=== PATIENT | female | born 1950 | race Caucasian/White ===

== ENCOUNTER → 2019-09-01 | Day surgery (SDC) | payer MEDICARE ==
[~2019-09-01] MED LIST: AMLO10TA8 PO; DOXE10CA PO; IV RINGERS,LACTATED 1000ML 1,000 ML IV SCH; LEVO75TA5 PO; LIDOCAINE 2% PF 5 ML VIAL. ONE; OMEP40CA45 PO; PROPOFOL 20 ML IV ONE
[2019-09-01 12:30] VITALS: BP 111/73
--- NOTE | 2019-09-03 17:06 | PATHOLOGY ---
[facility] Accession Number: [id number] . 01 Material submitted: . PART A: small bowel - SMALL BOWEL BIOPSY PART B: stomach - GASTRIC ANTRUM AND BODY BIOPSY. Modifiers: body PART C: esophagus - DISTAL ESOPHAGUS BIOPSY. Modifiers: distal . 01 Clinical history: . Dysphagia . 02 Diagnosis: A. Small bowel biopsies: - No significant pathologic abnormalities. . B. Gastric biopsies, gastric antrum and gastric body: - Chronic gastritis, mild. . C. Esophageal biopsy, distal esophagus: - Segment of esophagogastric mucosa showing chronic inflammation. . (JPM:hansel; 09/03/2019) S 09/03/2019 0903 Local . 02 Comment: Sections of the small bowel biopsy reveal segments of duodenal mucosa containing several small mucosal-associated lymphoid aggregates. Where best oriented, the mucosal villi show no sprue-like changes or significant inflammatory changes. . Sections of the gastric biopsy reveal segments of gastric antral and gastric body mucosa showing congestion and mild chronic inflammation. A properly controlled immunoperoxidase stain is negative for Helicobacter organisms. . Sections of the distal esophageal biopsy reveal a segment of esophagogastric mucosa showing moderate chronic inflammation. There is no evidence of Jarquin's change, dysplasia, or malignancy. (JPM:hansel; 09/03/2019) . . Special stain performed: Immunoperoxidase stain for Helicobacter on B1 . 02 Electronically signed: . Fabian Melo MD, Pathologist NPI- [id number] . 01 Gross description: . A. The specimen is received in formalin, labeled "Joanne Salas, small bowel biopsy". Received are three segments of pale zuniga soft tissue measuring 0.4 cm each in maximum dimensions. The specimen is submitted entirely in cassette A1. . B. The specimen is received in formalin, labeled "Joanne Salas, gastric antrum and body biopsy". Received are two segments of pale zuniga soft tissue ranging in size from 0.3 to 0.6 cm in maximum dimensions. The specimen is submitted entirely in cassette B1. . C. The specimen is received in formalin, labeled "Joanne Salas, distal esophagus biopsy". Received is a segment of pale zuniga soft tissue measuring 0.5 cm in maximum dimensions. The specimen is submitted entirely in cassette C1. (CAA; 09/02/2019) QAC/QAC 09/02/2019 1212 Local . 02 Pathologist provided ICD-10: K29.50, K20.9 . 02 CPT . 315520, 456896, 880293, [id number] Specimen Comment: A courtesy copy of this report has been sent to [phone], [phone] Specimen Comment: [id number] Specimen Comment: Report sent to ,DR ROSAS / DR MILNER Performed at: 01 [facility] [address], [place], [place] [id number] MD Emiliano Vines MD Phone: [phone] Performed at: 02 [facility] [address], [place] [id number] MD Fabian Melo MD Phone: [phone]
== END ==
LOC: ENDOS 09:54
PROVIDERS: ATTEND Internal Medicine Gastroenterology
DX: R13.10 Dysphagia, unspecified (principal); K22.2 Esophageal obstruction; K21.0 Gastro-esophageal reflux disease with esophagitis; K29.50 Unspecified chronic gastritis without bleeding; K44.9 Diaphragmatic hernia without obstruction or gangrene; I10 Essential (primary) hypertension; K21.9 Gastro-esophageal reflux disease without esophagitis; E03.9 Hypothyroidism, unspecified
CPT/HCPCS: 43239; 43248; 88305; 88342; J2001; J2704

== ENCOUNTER → 2019-12-17 | Outpatient (CLI) | payer MEDICARE ==
[2019-09-01 12:30] VITALS: BP 111/73
[~2019-12-17] MED LIST changes: -IV RINGERS,LACTATED 1000ML 1,000 ML IV SCH; -LIDOCAINE 2% PF 5 ML VIAL. ONE; -PROPOFOL 20 ML IV ONE
== END | disposition home or self-care (01) ==
LOC: LAB 11:14
PROVIDERS: ATTEND Internal Medicine Gastroenterology
DX: Z11.59 Encounter for screening for other viral diseases (principal)
CPT/HCPCS: U0003-CS

== ENCOUNTER → 2019-12-22 | Day surgery (SDC) | payer MEDICARE ==
[~2019-12-22] MED LIST changes: +IV RINGERS,LACTATED 1000ML 1,000 ML IV SCH; +PROPOFOL 10 MG/ML (20ML) VIAL. IV ONE
--- NOTE | 2019-12-22 10:40 | PREOP HP ---
DATE OF SERVICE: 12/22/2019 REQUESTING PHYSICIAN: Peter Cervantes MD REASON FOR PROCEDURE: Dysphagia. HISTORY OF PRESENT ILLNESS: This is a 69-year-old female who presents for dysphagia. ALLERGIES: No known drug allergies. PAST MEDICAL HISTORY: Dysphagia, esophageal stenosis, mouth and throat cancer. SOCIAL HISTORY: No current tobacco, no alcohol or IV drug abuse. MEDICATIONS: MAR reviewed. REVIEW OF SYSTEMS: A 13-point review of systems was done. It is positive as per HPI and otherwise negative. PHYSICAL EXAMINATION: GENERAL: She is a well-developed, well-nourished female, in no apparent distress. HEENT: Oropharynx is clear. CARDIOVASCULAR: S1, S2. LUNGS: Clear. ABDOMEN: Active bowel sounds, soft, nontender, nondistended. EXTREMITIES: No edema. NEUROLOGIC: Awake, alert, oriented x 3. ASSESSMENT AND PLAN: Dysphagia. The risks and benefits of the upper endoscopy including bleeding, perforation, non-diagnosis and sedation were explained and she has agreed to proceed. JAXSON DEAL MD DR: NIRAJ/celeste JOB#: [id number] / [id number]
[2019-12-22 11:16] VITALS: BP 137/76
== END ==
LOC: ENDOS 09:53
PROVIDERS: ATTEND Internal Medicine Gastroenterology
DX: R13.10 Dysphagia, unspecified (principal); K31.89 Other diseases of stomach and duodenum
CPT/HCPCS: 43235; J2704

== ENCOUNTER → 2019-12-29 | Day surgery (SDC) | payer MEDICARE ==
[~2019-12-29] MED LIST changes: +HYDROmorphone 2 MG/ML VIAL IV PRN; +LIDOCAINE 1% PF 2 ML VIAL. ID PRN; +MORPHINE SULFATE 2 MG/ML VIAL. IV PRN; +ONDANSETRON PF 4 MG/2 ML VIAL. IV PRN; +PROCHLORPERAZINE 10 MG/2 ML VIAL. IV PRN; +fentaNYL PF VIAL 100 MCG/2 ML VIAL IV PRN
--- NOTE | 2019-12-29 11:34 | PREOP HP ---
DATE OF SERVICE: 12/29/2019 DATE OF PROCEDURE: 12/29/2019 REQUESTING PHYSICIAN: Peter Cervantes MD PRIMARY CARE PHYSICIAN: Peter Cervantes MD REASON FOR PROCEDURE: Esophageal stenosis and dysphagia. HISTORY OF PRESENT ILLNESS: This is a 69-year-old female who presents today for evaluation of an esophageal stenosis. ALLERGIES: No known drug allergies. PAST MEDICAL HISTORY: 1. Breast cancer. 2. Throat cancer, status post radiation. FAMILY MEDICAL HISTORY: No colorectal cancer. SOCIAL HISTORY: She is a former smoker. She denies alcohol or IV drug abuse. MEDICATIONS: MAR reviewed. REVIEW OF SYSTEMS: A 13-point review of systems was done. It is positive as per HPI and otherwise negative. PHYSICAL EXAMINATION: VITAL SIGNS: She is afebrile. Her vital signs are stable. GENERAL: She is a well-developed, well-nourished female, in no apparent distress. HEENT: Oropharynx is clear. CARDIOVASCULAR: S1, S2. LUNGS: Clear. ABDOMEN: Normoactive bowel sounds, soft, nontender, nondistended. EXTREMITIES: No edema. NEUROLOGIC: Awake, alert and oriented x 3. ASSESSMENT AND PLAN: Dysphagia. The risks and benefits of upper endoscopy have been explained and she has agreed to proceed. Thank you for allowing me to participate in the care of this patient. JAXSON DEAL MD DR: NIRAJ/celeste JOB#: [id number] / [id number]
[2019-12-29 11:37] VITALS: BP 154/77
== END | disposition home or self-care (01) ==
LOC: ENDOS 09:20
PROVIDERS: ATTEND Internal Medicine Gastroenterology
DX: R13.10 Dysphagia, unspecified (principal); K22.2 Esophageal obstruction; I10 Essential (primary) hypertension; E03.9 Hypothyroidism, unspecified; F15.90 Other stimulant use, unspecified, uncomplicated; Z72.89 Other problems related to lifestyle; Z87.891 Personal history of nicotine dependence
CPT/HCPCS: 43248; J2704

== ENCOUNTER 2020-12-22 14:17 | Inpatient (IN) | payer MEDICARE ==
[~2020-12-22] VITALS: Ht 170.2 cm; Wt 70.2 kg
[~2020-12-22 14:17] MED LIST changes: +AMLO-187 PO; -AMLO10TA8 PO; -HYDROmorphone 2 MG/ML VIAL IV PRN; -IV RINGERS,LACTATED 1000ML 1,000 ML IV SCH; -LIDOCAINE 1% PF 2 ML VIAL. ID PRN; -MORPHINE SULFATE 2 MG/ML VIAL. IV PRN; -OMEP40CA45 PO; +OMEP40CA7 PO; -ONDANSETRON PF 4 MG/2 ML VIAL. IV PRN; -PROCHLORPERAZINE 10 MG/2 ML VIAL. IV PRN; -PROPOFOL 10 MG/ML (20ML) VIAL. IV ONE; -fentaNYL PF VIAL 100 MCG/2 ML VIAL IV PRN
--- NOTE | 2020-12-22 14:54 | RAD ---
INDICATION: Reason: SOA / Spl. Instructions: / History: COMPARISON: None. FINDINGS: Single view of chest obtained. Degenerative changes of the bilateral shoulders. Cardiac silhouette is prominent in size. Patchy opac ity at the right lung base with interstitial opacities bilaterally. Calcific atherosclerosis. IMPRESSION: * Patchy opacity most prominent at the right lung base could be secondary to infiltrate with other p ossible causes including aspiration. Would also obtain a follow-up to ensure this resolves to exclude any neoplastic causes. * Mild interstitial opacities are seen bilaterally as well which can be seen with pulmonary vascular congestion or interstitial infiltrate. A portion may be chronic as well. Electronically signed by: Beck Vicente MD (12/22/2020 2:52 PM) [id number]
--- NOTE | 2020-12-22 15:33 | PDOC1 ---
History and Physical Date of Admission Date of Admission DATE: 12/22/20 TIME: 15:33 Identification/Chief Complaint Chief Complaint soa, cough, hypoxia // dense consolidative infiltrate with bronchiectasis involving the medial and lateral segments of the right middle lobe. History of Present Illness History of Present Illness 70 year old female with history of hypertension, aspiration pneumonia, e sophageal strictures who presents to the ED complaining of shortness of breath that began after she took a nap today. and thinks she aspirated states she has had aspiration pneumonia from esophageal strictures before.states this feels similar to the last time she had aspiration pneumonia. no fever. she is a former smoker on CTA OF CHEST .dense consolidative infiltrate with b ronchiectasis involving the medial and lateral segments of the right middle lobe. HX ESOPHAGEAL CANCER WITH STRICTURE // ACUTE HYPOXIC Respiratory failure DUE to aspiration pneumonia, pulm and ID consulted, will start iv cefixime, zyvox pending ID consult, npo, ST TO SEE has know hx aspiration pneumonia hx aneurysmal dilatation of the ascending aorta measuring up to 5.2 cm in greatest caliber. No intimal flap or dissection is seen Past Medical History Past Medical History ESOPHAGEAL CA, COPD Pulmonary: Bronchitis Musculoskeletal: Osteoarthritis Family History Family History: Chronic Bronchitis, Hypertension Social History Smoke: Quit ALCOHOL: none Drugs: None Current Medications Current Medications Active Scripts Active Reported Levothyroxine Sodium 75 Mcg Tablet 75 Mcg PO DAILYAC Amlodipine Besylate 10 Mg Tablet 10 Mg PO DAILY Omeprazole 40 Mg Capsule.dr 40 Mg PO DAILY Allergies Allergies: Coded Allergies: No Known Drug Allergies (Unverified , 12/29/19) ROS Review of System HENT: Denies nasal congestion or sore throat. [] Respiratory: Reports shortness of breath, denies coughing Cardiovascular: Denies chest pain or edema. [] GI: Denies abdominal pain, nausea, vomiting, bloody stools or diarrhea. [] : Denies dysuria. [] Musculoskeletal: Denies back pain or joint pain. [] Integument: Denies rash. [] Neurologic: Denies headache, focal weakness or sensory changes. [] Endocrine: Denies polyuria or polydipsia. [] Lymphatic: Denies swollen glands. [] Psychiatric: Denies depression or anxiety. [] General: YES: Fatigue; No: Chills, Night Sweats, Malaise, Appetite, Other PSYCHOLOGICAL ROS: No: Anxiety, Behavioral Disorder, Concentration difficultie, Decreased libido, Depression, Disorientation, Hallucinations, Hostility, Irritablity, Memory difficulties, Mood Swings, Obsessive thoughts, Physical abuse, Sexual abuse, Sleep disturbances, Suicidal ideation, Other Eyes: No Blurry vision, No Decreased vision, No Double vision, No Dry eyes, No Excessive tearing, No Eye Pain, No Itchy Eyes, No Loss of vision, No Photophobia, No Scotomata, No Uses contacts, No Uses glasses, No Other HEENT: No: Heacaches, Visual Changes, Hearing change, Nasal congestion, Nasal discharge, Oral lesions, Sinus pain, Sore Throat, Epistaxis, Sneezing, Snoring, Tinnitus, Vertigo, Vocal changes, Other ALLERGY AND IMMUNOLOGY: No: Hives, Insect Bite Sensitivity, Itchy/Watery Eyes, Nasal Congestion, Post Nasal Drip, Seasonal Allergies, Other Hematological and Lymphatic: No: Bleeding Problems, Blood Clots, Blood Transfusions, Brusing, Night Sweats, Pallor, Swollen Lymph Nodes, Other ENDOCRINE: No: Breast Changes, Galactorrhea, Hair Pattern Changes, Hot Flashes, Malaise/lethargy, Mood Swings, Palpitations, Polydipsia/polyuria, Skin Changes, Temperature Intolerance, Unexpected Weight Changes, Other Respiratory: YES: Cough, Shortness of breath; No: Hemoptysis, Orthopnea, Pleuritic Pain, SOB with excertion, Sputum Changes, Stridor, Tachypnea, Wheezing, Other Cardiovascular: No Chest Pain, No Palpitations, No Orthopnea, No Paroxysmal Noc. Dyspnea, No Edema, No Lt Headedness, No Other Gastrointestinal: No Nausea, No Vomiting, No Abdominal Pain, No Diarrhea, No Constipation, No Melena, No Hematochezia, No Other Genitourinary: No Dysuria, No Frequency, No Incontinence, No Hematuria, No Retention, No Discharge, No Urgency, No Pain, No Flank Pain, No Other, No , No , No , No , No , No , No Musculoskeletal: No Gait Disturbance, No Joint Pain, No Joint Stiffness, No Joint Swelling, No Muscle Pain, No Muscular Weakness, No Pain In:, No Swelling In:, No Other Neurological: No Behavorial Changes, No Bowel/Bladder ControlChng, No Confusion, No Dizziness, No Gait Disturbance, No Headaches, No Impaired Coord/balance, No Memory Loss, No Numbness/Tingling, No Seizures, No Speech Problems, No Tremors, No Visual Changes, No Weakness, No Other Skin: No Dry Skin, No Eczema, No Hair Changes, No Lumps, No Mole Changes, No Mottling, No Nail Changes, No Pruritus, No Rash, No Skin Lesion Changes, No Other, No Acne Physical Exam Physical Exam Constitutional: Well developed, well nourished, no acute distress, non-toxic appearance. [] HENT: Normocephalic, atraumatic, bilateral external ears normal, oropharynx moist, no oral exudates, nose normal. [] Eyes: PERRLA, EOMI, conjunctiva normal, no discharge. [] Neck: Normal range of motion, no tenderness, supple, no stridor. [] Cardiovascular:Heart rate regular rhythm, no murmur [] Lungs & Thorax: Diminished breath sounds few crackles Abdomen: Bowel sounds normal, soft, no tenderness, no masses, no pulsatile masses. [] Skin: Warm, dry, no erythema, no rash. [] Back: No tenderness, no CVA tenderness. [] Extremities: No tenderness, no cyanosis, no clubbing, ROM intact, no edema. [] Neurologic: Alert and oriented X 3, normal motor function, normal sensory function, no focal deficits noted. [] Psychologic: Affect normal, judgment normal, mood normal. [] General: Alert, Oriented X3, Cooperative, No acute distress HEENT: Atraumatic, PERRLA, EOMI, Mucous membr. moist/pink Lungs: Other (DULLNESS RML AREA ) Heart: RRR, no jug vein distention Cardiovascular: S2 Breasts: Not examined Abdomen: Normal bowel sounds, Soft, No tenderness Rectal Exam: not examined PELVIC: Examination not indicated Extremities: No cyanosis Skin: No rashes Neuro: Normal speech, Strength at 5/5 X4 ext, Normal tone, Cranial nerves 3-12 NL Psych/Mental Status: Mental status NL, Mood NL Vitals Vitals Vital Signs Date Time Temp Pulse Resp B/P (MAP) Pulse Ox O2 Delivery O2 Flow Rate FiO2 12/22/20 14:44 98.2 81 22 139/78 (98) 94 Room Air 98.2 Images Images NTERPRETATION Stress EKG Conclusion: Baseline EKG showed sinus rhythm. No ischemic changes at peak stress. No arrhythmias. Imaging Protocol IMAGE PROTOCOL: Rest Tc-99m/stress Tc-99m 1 day Rest: Stress: Viability: Radiopharm. Tc99m Sestamibi Tc99m Sestamibi Dose 10.6mCi 36mCi Img Date 03/04/2015 03/04/2015 Inj-Img Time 60min. 60min. Rest Admin Site: IV - Right Antecubital Tree Specialist: CARMEN Guzman, ARRT (R)(N) Stress Admin Site: IV - Right Antecubital Tree Specialist: Haim Coats, RT (R)(N) STRESS DATA End Diast. Vol. 95.0ml Av. Heart Rate 58.0bpm LVEDV index BSA 2.0ml Cardiac Output 0.1L/min End Syst. Vol. 26.0ml CO Index BSA 4.0L/min LVESV index BSA 1.0ml Myocardial Mass 140.0g Eject. Fraction 73.0% Stress Rates Pk. Fill Rate 2.71EDV/sec LVtime Pk. Fill 224.72msec Pk. Empty Rate 3.80ESV/sec LVtime Pk. Eject 170.79msec 1/3 Pk. Fill 1.35EDV/sec Stress Scores Regional WT 1.00 Summed WT 2.00 Regional WM 0.00 Summed WM 0.00 Study quality was good. Left Ventricular size was Normal at Rest and Stress. Lung uptake was Normal. Left Ventricular ejection fraction is 73%. The rest and stress images show normal perfusion, normal contraction and thickening. LV Perfusion 1 TCD/TID: 0.98 LV Perf. Quant 17 Seg. SSS 0.00 17 Seg. SRS 2.00 17 Seg. SDS 0.00 Stress Defect Extent (% LAD) 0.00 Rest Defect Extent (% LAD) 0.00 Rev. Defect Extent (% LAD) 0.00 Stress Defect Extent (% LCX) 0.00 Rest Defect Extent (% LCX) 10.00 Rev. Defect Extent (% LCX) 0.00 Stress Defect Extent (% RCA) 0.00 Rest Defect Extent (% RCA) 0.00 Rev. Defect Extent (% RCA) 0.00 Stress Defect Extent (% TABBY) 0.00 Rest Defect Extent (% TABBY) 1.70 Rev. Defect Extent (% TABBY) 0.00 Conclusion 1. Treadmill exercise cardioisotope stress test did not show any evidence of ischemia or infarct. 2. Normal left ventricular systolic function with ejection fraction calculated at 73%. 3. Patient had average exercise tolerance. Low risk for cardiovascular events. DICTATED and SIGNED BY: MIGUEL ÁNGEL PALMER MD DATE: 03/04/15 1424 CC: KENYATTA ROSAS MD ~ REASON: SOA PROCEDURE: CT ANGIOGRAPHY CHEST CTA OF THE CHEST WITH AND WITHOUT CONTRAST Clinical indications: Shortness of air. Technique: Noncontrast axial localizer was performed. After IV infusion of 90 cc of Omnipaque 350, helical CT scanning of the chest was performed using the CTA pulmonary embolism protocol. Coronal and sagittal MIP reconstructions were generated. PQRS compliance Statement One or more of the following individualized dose reduction techniques were utilized for this study: 1. Automated exposure control 2. Adjustment of the mA and/or kV according to patient size 3. Use of iterative reconstruction technique Comparison: No previous chest CT available. Findings: No pulmonary embolism is evident. There is aneurysmal dilatation of the ascending aorta measuring up to 5.2 cm in greatest caliber. No intimal flap or dissection is seen. The heart size is at the upper limits normal. No pericardial effusion is seen. There is mild calcified atheromatous disease the coronary arteries. Moderate size right-sided pleural effusion and small to moderate-sized left-sided pleural effusion is evident. There is compressive atelectasis or consolidative infiltrate involving both lower lobes. Small focus of nodular lung infiltrate or atelectasis is seen within the superior segment of the right lower lobe adjacent to the pleural effusion. Perihilar groundglass lung infiltrate is seen more prominent on the right side most likely representing pulmonary edema. There is a dense consolidative infiltrate with bronchiectasis involving the medial and lateral segments of the right middle lobe. Similar less prominent finding is seen involving the inferior segment of the lingula of the left upper lobe. The proximal bronchial tree is patent otherwise. No pneumothorax is evident. There is a calcified granuloma within the left lower lobe. Mediastinal lymph nodes are seen. The largest noncalcified lymph node is seen within the anterior mediastinum adjacent to the proximal aortic arch measuring 23 mm. There is a 27 mm lymph node within the subcarinal region but this is partially calcified consistent with old granulomatous disease. There is a noncalcified right hilar lymph node measuring 28 mm. Additional smaller right hilar lymph nodes are seen. Calcified left hilar lymph node is seen due to old granulomatous disease. No enlarged axillary lymphadenopathy is seen. No adrenal mass is evident. No lytic process is seen. IMPRESSION: No pulmonary embolism. Bilateral pleural effusions right greater than left with associated compressive atelectasis or consolidative infiltrate within both posterior lower lobes. Small area of nodular infiltrate or atelectasis of the superior segment of the right lower lobe. Opacification with bronchiectasis of the right middle lobe and lingula. Given the bronchiectasis, the opacification most likely is chronic scarring or chronic atelectasis. Bilateral perihilar groundglass lung infiltrate may be indicative of pulmonary edema. Aneurysmal dilatation of the ascending aorta without intimal flap or dissection. Mild calcified atheromatous disease of the coronary arteries. Mediastinal lymphadenopathy which may be reactive. Electronically signed by: Lang Mccarthy MD (12/22/2020 4:55 PM) [id number] DICTATED and SIGNED BY: LANG MCCARTHY MD DATE: 12/22/20 [id number] PATIENT: RAOUL VICENTE ACCOUNT: [id number] : 1950 LOCATION: ER AGE: 70 SEX: F EXAM STATUS: PRE ER ORD. PHYSICIAN: SONU KENNEDY APRN REASON: SOA PROCEDURE: PORTABLE CHEST 1V INDICATION: Reason: SOA / Spl. Instructions: / History: COMPARISON: None. FINDINGS: Single view of chest obtained. Degenerative changes of the bilateral shoulders. Cardiac silhouette is prominent in size. Patchy opacity at the right lung base with interstitial opacities bilaterally. Calcific atherosclerosis. IMPRESSION: * Patchy opacity most prominent at the right lung base could be secondary to infiltrate with other possible causes including aspiration. Would also obtain a follow-up to ensure this resolves to exclude any neoplastic causes. * Mild interstitial opacities are seen bilaterally as well which can be seen with pulmonary vascular congestion or interstitial infiltrate. A portion may be chronic as well. Electronically signed by: Rosario Parham MD (12/22/2020 2:52 PM) [id number] DICTATED and SIGNED BY: ROSARIO PARHAM MD DATE: 12/22/20 [id number] VTE Prophylaxis Ordered VTE Prophylaxis Devices: Yes VTE Pharmacological Prophylaxi: Yes Assessment/Plan Assessment/Plan IMPRESSION Aspiration pneumonia ACUTE dense consolidative infiltrate with bronchiectasis involving the medial and lateral segments of the right middle lobe. HX ESOPHAGEAL CANCER WITH STRICTURE ACUTE HYPOXIC Respiratory failure BREAST CA, HX THROAT CA hx post radiation and chemotherapy aneurysmal dilatation of the ascending aorta measuring up to 5.2 cm in greatest caliber. No intimal flap or dissection is seen ADMITTED BLOOD CULTURE PULM CONSULT ID CONSULT BLOOD CULTURE, SPUTUM CULTURE Emperic iv zyvox, cefepime q 12 hrs dvt prophylaxis O2 SUPPORT PROGNOSIS GUARDED CARDIOLOGY CONSULT ECHO d/w er dr Justifications for Admission Other Justification JAIRO LEVINE MD Dec 22, 2020 15:33
--- NOTE | 2020-12-22 15:50 | PHYS DOC ---
Past Medical History Past Medical History: Hypertension, Pneumonia, Other Additional Past Medical Histor: HEART MURMUR, BREAST CA, THROAT CA Past Surgical History: No Surgical History Smoking Status: Former Smoker Alcohol Use: None General Adult EDM: Chief Complaint: SHORTNESS OF BREATH HPI: HPI: Patient is a 70 year old female with history of hypertension, aspiration pneumonia, esophageal strictures who presents to the ED today complaining of shortness of breath that began after she took a nap today. Patient states she has had aspiration pneumonia from esophageal strictures before. She states this feels similar to the last time she had aspiration pneumonia. Denies any fever. She states she is a former smoker. Reports receiving a [employer] vaccine for Covid in August. Review of Systems: Review of Systems: Constitutional: Denies fever or chills. [] Eyes: Denies change in visual acuity. [] HENT: Denies nasal congestion or sore throat. [] Respiratory: Reports shortness of breath, denies coughing Cardiovascular: Denies chest pain or edema. [] GI: Denies abdominal pain, nausea, vomiting, bloody stools or diarrhea. [] : Denies dysuria. [] Musculoskeletal: Denies back pain or joint pain. [] Integument: Denies rash. [] Neurologic: Denies headache, focal weakness or sensory changes. [] Endocrine: Denies polyuria or polydipsia. [] Lymphatic: Denies swollen glands. [] Psychiatric: Denies depression or anxiety. [] Heart Score: C/O Chest Pain: N/A Risk Factors: Risk Factors: DM, Current or recent (<one month) smoker, HTN, HLP, family history of CAD, obesity. Risk Scores: Score 0 - 3: 2.5% MACE over next 6 weeks - Discharge Home Score 4 - 6: 20.3% MACE over next 6 weeks - Admit for Clinical Observation Score 7 - 10: 72.7% MACE over next 6 weeks - Early Invasive Strategies Current Medications: Current Medications Medications (Trade) Dose Ordered Sig/Nora Start Time Stop Time Status Last Admin Dose Admin Levofloxacin/ Dextrose 100 ml @ 100 mls/hr 1X ONCE 12/22/20 15:45 12/22/20 16:44 Allergies: Allergies: Allergies Coded Allergies Type Severity Reaction Last Updated Verified No Known Drug Allergies 12/29/19 No Physical Exam: PE: Constitutional: Well developed, well nourished, no acute distress, non-toxic appearance. [] HENT: Normocephalic, atraumatic, bilateral external ears normal, oropharynx moist, no oral exudates, nose normal. [] Eyes: PERRLA, EOMI, conjunctiva normal, no discharge. [] Neck: Normal range of motion, no tenderness, supple, no stridor. [] Cardiovascular:Heart rate regular rhythm, no murmur [] Lungs & Thorax: Diminished breath sounds Abdomen: Bowel sounds normal, soft, no tenderness, no masses, no pulsatile masses. [] Skin: Warm, dry, no erythema, no rash. [] Back: No tenderness, no CVA tenderness. [] Extremities: No tenderness, no cyanosis, no clubbing, ROM intact, no edema. [] Neurologic: Alert and oriented X 3, normal motor function, normal sensory function, no focal deficits noted. [] Psychologic: Affect normal, judgement normal, mood normal. [] Current Patient Data: Vital Signs: Vital Signs Date Time Temp Pulse Resp B/P (MAP) Pulse Ox O2 Delivery O2 Flow Rate FiO2 12/22/20 14:44 98.2 81 22 139/78 (98) 94 Room Air 98.2 EKG: EKG: [] Radiology/Procedures: Radiology/Procedures: []PROCEDURE: PORTABLE CHEST 1V INDICATION: Reason: SOA / Spl. Instructions: / History: COMPARISON: None. FINDINGS: Single view of chest obtained. Degenerative changes of the bilateral shoulders. Cardiac silhouette is prominent in size. Patchy opacity at the right lung base with interstitial opacities b ilaterally. Calcific atherosclerosis. IMPRESSION: * Patchy opacity most prominent at the right lung base could be secondary to infiltrate with other possible causes including aspiration. Would also obtain a follow-up to ensure this resolves to exclude any neoplastic causes. * Mild interstitial opacities are seen bilaterally as well which can be seen with pulmonary vascular congestion or interstitial infiltrate. A portion may be chronic as well. Electronically signed by: Rosario Parham MD (12/22/2020 2:52 PM) [id number] DICTATED and SIGNED BY: ROSARIO PARHAM MD DATE: 12/22/20 [id number] Course & Med Decision Making: Course & Med Decision Making Pertinent Labs and Imaging studies reviewed. (See chart for details) This is a 70-year-old female patient presenting to the ED today complaining of shortness of breath, patient believes he has pneumonia. Has history of a esophageal strictures with pneumonia Patient's oxygen saturation was 74% on room air on arrival to the ED, she was put on 5 L of oxygen, O2 sats went up to 94% Chest x-ray noted for aspiration pneumonia. Labs are pending Started patient on Levaquin I spoke with Dr. Davis who will follow up with patient I spoke with Dr. Mcfarland who accepted patient for admission Emily Disclaimer: Emily Disclaimer: This electronic medical record was generated, in whole or in part, using a voice recognition dictation system. Departure Departure Impression: Primary Impression: Aspiration pneumonia Qualified Codes: J69.0 - Pneumonitis due to inhalation of food and vomit Additional Impression: Respiratory failure Qualified Codes: J96.01 - Acute respiratory failure with hypoxia Disposition: ADMITTED INPATIENT Condition: STABLE Referrals: NICKOLAS MCPHERSON (PCP) SONU KENNEDY INTERNATIONAL NURSE Dec 22, 2020 15:50
[2020-12-22 15:55] LABS: BASO # 0.1 x10^3/uL (0.0-0.2); BASO % 1 % (0-3); EOS % 0 % (0-3); HEMATOCRIT 38.5 % (36.0-47.0); HEMOGLOBIN 12.7 g/dL (12.0-15.5); LYMPH # 1.1 x10^3/uL (1.0-4.8); LYMPH % 7 % (24-48); MEAN CORPUSCULAR HEMOGLOBIN 31 pg (25-35); MEAN CORPUSCULAR HGB CONC 33 g/dL (31-37); MEAN CORPUSCULAR VOLUME 95 fL (79-100); MONO # 0.9 x10^3/uL (0.0-1.1); MONO % 6 % (0-9); NEUT # 12.5 x10^3/uL (1.8-7.7); NEUT % 86 % (31-73); PLATELET COUNT 424 x10^3/uL (140-400); RED BLOOD COUNT 4.04 x10^6/uL (3.50-5.40); RED CELL DISTRIBUTION WIDTH 17.2 % (11.5-14.5); WHITE BLOOD COUNT 14.6 x10^3/uL (4.0-11.0)
[2020-12-22 16:01] LABS: BILIRUBIN,URINE SMALL (NEG); CLARITY,URINE CLEAR; COLOR,URINE AMBER; NITRITE,URINE NEGATIVE (NEG); PROTEIN,URINE 100 mg/dL (NEG-TRACE)
[2020-12-22 16:08] LABS: CALCIUM 8.3 mg/dL (8.5-10.1); GFR 54.7; POTASSIUM 3.7 mmol/L (3.5-5.1)
[2020-12-22 16:15] LABS: ALBUMIN 3.7 g/dL (3.4-5.0); ALBUMIN/GLOBULIN RATIO 0.8 (1.0-1.7); TOTAL BILIRUBIN 0.7 mg/dL (0.2-1.0); TOTAL PROTEIN 8.4 g/dL (6.4-8.2)
[2020-12-22 16:18] LABS: CREATINE KINASE 43 U/L (26-192)
[2020-12-22 16:27] LABS: BACTERIA,URINE MODERATE /HPF (0-FEW); HYALINE CASTS, URINE MODERATE /HPF
[2020-12-22 16:28] LABS: RBC,URINE 0 /HPF (0-2)
[2020-12-22] MEDS ORDERED: CONTRAST GIVEN. MC PRN (16:30)
[2020-12-22] MEDS ORDERED: IOHEXOL 350 MG/ML 100 ML VIAL. IV ONE (16:30)
--- NOTE | 2020-12-22 16:57 | RAD ---
CTA OF THE CHEST WITH AND WITHOUT CONTRAST Clinical indications: Shortness of air. Technique: Noncontrast axial localizer was performed. After IV infusion of 90 cc of Omnipaque 350, he lical CT scanning of the chest was performed using the CTA pulmonary embolism protocol. Coronal and s agittal MIP reconstructions were generated. PQRS compliance Statement One or more of the following individualized dose reduction techniques were utilized for this study: 1. Automated exposure control 2. Adjustment of the mA and/or kV according to patient size 3. Use of iterative reconstruction technique Comparison: No previous chest CT available. Findings: No pulmonary embolism is evident. There is aneurysmal dilatation of the ascending aorta yessi suring up to 5.2 cm in greatest caliber. No intimal flap or dissection is seen. The heart size is at the upper limits normal. No pericardial effusion is seen. There is mild calcified atheromatous diseas e the coronary arteries. Moderate size right-sided pleural effusion and small to moderate-sized left- sided pleural effusion is evident. There is compressive atelectasis or consolidative infiltrate invol ving both lower lobes. Small focus of nodular lung infiltrate or atelectasis is seen within the super ior segment of the right lower lobe adjacent to the pleural effusion. Perihilar groundglass lung infi ltrate is seen more prominent on the right side most likely representing pulmonary edema. There is a dense consolidative infiltrate with bronchiectasis involving the medial and lateral segments of the r ight middle lobe. Similar less prominent finding is seen involving the inferior segment of the lingul a of the left upper lobe. The proximal bronchial tree is patent otherwise. No pneumothorax is evident . There is a calcified granuloma within the left lower lobe. Mediastinal lymph nodes are seen. The la rgest noncalcified lymph node is seen within the anterior mediastinum adjacent to the proximal aortic arch measuring 23 mm. There is a 27 mm lymph node within the subcarinal region but this is partially calcified consistent with old granulomatous disease. There is a noncalcified right hilar lymph node measuring 28 mm. Additional smaller right hilar lymph nodes are seen. Calcified left hilar lymph node is seen due to old granulomatous disease. No enlarged axillary lymphadenopathy is seen. No adrenal mass is evident. No lytic process is seen. IMPRESSION: No pulmonary embolism. Bilateral pleural effusions right greater than left with associated compressive atelectasis or consol idative infiltrate within both posterior lower lobes. Small area of nodular infiltrate or atelectasis of the superior segment of the right lower lobe. Opacification with bronchiectasis of the right middle lobe and lingula. Given the bronchiectasis, the opacification most likely is chronic scarring or chronic atelectasis. Bilateral perihilar groundglass lung infiltrate may be indicative of pulmonary edema. Aneurysmal dilatation of the ascending aorta without intimal flap or dissection. Mild calcified atheromatous disease of the coronary arteries. Mediastinal lymphadenopathy which may be reactive. Electronically signed by: Galdino Mccarthy MD (12/22/2020 4:55 PM) [place] [id number]
[2020-12-22] MEDS ORDERED: SODIUM PHOSPHATES 19/7GM 133 ML ENEMA. PR PRN (18:30)
[2020-12-22] MEDS ORDERED: ONDANSETRON PF 4 MG/2 ML VIAL. IV PRN ×2 (18:30→20:15)
[2020-12-22] MEDS ORDERED: 0.9 % SODIUM CHLORIDE 10 ML DISP.SYRIN. IV PRN (18:30)
[2020-12-22] MEDS ORDERED: ACETAMINOPHEN 650 MG SUPP.RECT. PR PRN (18:30)
[2020-12-22] MEDS ORDERED: MORPHINE SULFATE 2 MG/ML VIAL. IV PRN (20:15)
[2020-12-22] MEDS ORDERED: ACETAMINOPHEN 325 MG TABLET. PO PRN (20:15)
[2020-12-22] MEDS: IPRATRPIUM/ALBUTEROL 0.5/2.5MG 3 ML NEBU. NEB SCH (20:23)
[2020-12-22] MEDS: ENOXAPARIN 40 MG/0.4 ML SYRINGE. SQ SCH (20:55)
[2020-12-22] MEDS: CEFEPIME HCL IV Push 1 GM VIAL. IVP SCH (20:57)
[2020-12-22] MEDS: IV NORMAL SALINE 1000ML BAG 1,000 ML IV SCH (20:58)
[2020-12-22 22:51] VITALS: BP 122/62
--- NOTE | 2020-12-22 23:20 | NUR ---
The patient, RAOUL VICENTE, 70 y/o, F admitted by JAIRO LEVINE MD, was given written information regarding hospital policies, unit procedures and contact persons. Patient denies any shortness of breathe upon arrival. Valuables were checked and has cell phone, tablet, cell phone charge, purse with drivers license and cards. Personal clothing.
[2020-12-23] VITALS (7 sets, daily range): BP systolic 102–145; BP diastolic 62–72
[2020-12-23] MEDS: IPRATRPIUM/ALBUTEROL 0.5/2.5MG 3 ML NEBU. NEB SCH ×6 (00:36→20:20)
--- NOTE | 2020-12-23 06:28 | EKG ---
[facility] [address] [place] [id number] Test Date: 2020-12-22 Test Time: 14:28:17 Pat Name: RAOUL VICENTE Department: Room: Gender: F [employer]: : [id number] Requested By: SONU KENNEDY Order Number: [id number] Reading MD: Measurements Intervals Sawyer Rate: 80 P: 29 AL: 142 QRS: 22 QRSD: 92 T: 30 QT: 458 QTc: 533 Interpretive Statements SINUS RHYTHM PROLONGED QT NO SPECIFIC ECG ABNORMALITIES RI6.02 No previous ECG available for comparison
[2020-12-23] MEDS ORDERED: LEVOTHYROXINE 100 MCG TABLET PO SCH (07:30)
[2020-12-23] MEDS ORDERED: LEVOTHYROXINE 75 MCG TABLET PO SCH (07:30)
[2020-12-23] MEDS ORDERED: PANTOPRAZOLE 40 MG TABLET.DR. PO SCH (07:30)
[2020-12-23 07:34] LABS: ALBUMIN 2.9 g/dL (3.4-5.0); ALBUMIN/GLOBULIN RATIO 0.7 (1.0-1.7); CALCIUM 7.6 mg/dL (8.5-10.1); CREATININE 0.9 mg/dL (0.6-1.0); GFR 61.7; POTASSIUM 3.2 mmol/L (3.5-5.1); TOTAL BILIRUBIN 0.5 mg/dL (0.2-1.0); TOTAL PROTEIN 6.9 g/dL (6.4-8.2)
[2020-12-23 07:53] LABS: BASO % 1 % (0-3); EOS # 0.2 x10^3/uL (0.0-0.7); EOS % 2 % (0-3); HEMATOCRIT 35.1 % (36.0-47.0); HEMOGLOBIN 11.6 g/dL (12.0-15.5); LYMPH # 1.1 x10^3/uL (1.0-4.8); LYMPH % 12 % (24-48); MEAN CORPUSCULAR HEMOGLOBIN 31 pg (25-35); MEAN CORPUSCULAR HGB CONC 33 g/dL (31-37); MEAN CORPUSCULAR VOLUME 95 fL (79-100); MONO # 0.7 x10^3/uL (0.0-1.1); MONO % 8 % (0-9); NEUT # 7.1 x10^3/uL (1.8-7.7); NEUT % 77 % (31-73); PLATELET COUNT 336 x10^3/uL (140-400); RED BLOOD COUNT 3.69 x10^6/uL (3.50-5.40); RED CELL DISTRIBUTION WIDTH 16.6 % (11.5-14.5); WHITE BLOOD COUNT 9.2 x10^3/uL (4.0-11.0)
--- NOTE | 2020-12-23 09:06 | PDOC ---
PULMONARY PROGRESS NOTES DATE: 12/23/20 TIME: 09:06 Vitals Vital Signs Date Time Temp Pulse Resp B/P (MAP) Pulse Ox O2 Delivery O2 Flow Rate FiO2 12/23/20 08:08 95 Nasal Cannula 3.0 12/23/20 07:00 98.1 74 18 118/66 (83) 98.1 Cardiovascular: S2 Labs Laboratory Tests Test 12/22/20 15:30 12/22/20 15:37 12/22/20 17:15 12/22/20 20:25 Urine Collection Type Unknown Urine Color Myesha Urine Clarity Clear Urine pH 6.0 (<5.0-8.0) Urine Specific Gaines 1.025 (1.000-1.030) Urine Protein 100 mg/dL (NEG-TRACE) Urine Glucose (UA) Negative mg/dL (NEG) Urine Ketones (Stick) Trace mg/dL (NEG) Urine Blood Negative (NEG) Urine Nitrite Negative (NEG) Urine Bilirubin Small (NEG) Urine Urobilinogen Dipstick 1.0 mg/dL (0.2 mg/dL) Urine Leukocyte Esterase Small (NEG) Urine RBC 0 /HPF (0-2) Urine WBC 11-20 /HPF (0-4) Urine Squamous Epithelial Cells Mod /LPF Urine Bacteria Moderate /HPF (0-FEW) Urine Hyaline Casts Moderate /HPF Urine Mucus Mod /LPF White Blood Count 14.6 x10^3/uL (4.0-11.0) Red Blood Count 4.04 x10^6/uL (3.50-5.40) Hemoglobin 12.7 g/dL (12.0-15.5) Hematocrit 38.5 % (36.0-47.0) Mean Corpuscular Volume 95 fL (79-100) Mean Corpuscular Hemoglobin 31 pg (25-35) Mean Corpuscular Hemoglobin Concent 33 g/dL (31-37) Red Cell Distribution Width 17.2 % (11.5-14.5) Platelet Count 424 x10^3/uL (140-400) Neutrophils (%) (Auto) 86 % (31-73) Lymphocytes (%) (Auto) 7 % (24-48) Monocytes (%) (Auto) 6 % (0-9) Eosinophils (%) (Auto) 0 % (0-3) Basophils (%) (Auto) 1 % (0-3) Neutrophils # (Auto) 12.5 x10^3/uL (1.8-7.7) Lymphocytes # (Auto) 1.1 x10^3/uL (1.0-4.8) Monocytes # (Auto) 0.9 x10^3/uL (0.0-1.1) Eosinophils # (Auto) 0.0 x10^3/uL (0.0-0.7) Basophils # (Auto) 0.1 x10^3/uL (0.0-0.2) Sodium Level 141 mmol/L (136-145) Potassium Level 3.7 mmol/L (3.5-5.1) Chloride Level 104 mmol/L (98-107) Carbon Dioxide Level 24 mmol/L (21-32) Anion Gap 13 (6-14) Blood Urea Nitrogen 14 mg/dL (7-20) Creatinine 1.0 mg/dL (0.6-1.0) Estimated GFR (Cockcroft-Gault) 54.7 BUN/Creatinine Ratio 14 (6-20) Glucose Level 144 mg/dL (70-99) Lactic Acid Level 2.5 mmol/L (0.4-2.0) 0.8 mmol/L (0.4-2.0) Calcium Level 8.3 mg/dL (8.5-10.1) Magnesium Level 2.0 mg/dL (1.8-2.4) Total Bilirubin 0.7 mg/dL (0.2-1.0) Aspartate Amino Transf (AST/SGOT) 16 U/L (15-37) Alanine Aminotransferase (ALT/SGPT) 14 U/L (14-59) Alkaline Phosphatase 128 U/L (46-116) Creatine Kinase 43 U/L (26-192) Creatine Kinase MB (Mass) 1.1 ng/mL (0.0-3.6) Creatine Kinase MB Relative Index % (0-4) Troponin I Quantitative < 0.017 ng/mL (0.000-0.055) < 0.017 ng/mL (0.000-0.055) < 0.017 ng/mL (0.000-0.055) KT-Eyx-K-Type Natriuretic Peptide 1801 pg/mL (0-124) Total Protein 8.4 g/dL (6.4-8.2) Albumin 3.7 g/dL (3.4-5.0) Albumin/Globulin Ratio 0.8 (1.0-1.7) Procalcitonin < 0.10 ng/mL (0.00-0.10) Test 12/23/20 06:20 White Blood Count 9.2 x10^3/uL (4.0-11.0) Red Blood Count 3.69 x10^6/uL (3.50-5.40) Hemoglobin 11.6 g/dL (12.0-15.5) Hematocrit 35.1 % (36.0-47.0) Mean Corpuscular Volume 95 fL (79-100) Mean Corpuscular Hemoglobin 31 pg (25-35) Mean Corpuscular Hemoglobin Concent 33 g/dL (31-37) Red Cell Distribution Width 16.6 % (11.5-14.5) Platelet Count 336 x10^3/uL (140-400) Neutrophils (%) (Auto) 77 % (31-73) Lymphocytes (%) (Auto) 12 % (24-48) Monocytes (%) (Auto) 8 % (0-9) Eosinophils (%) (Auto) 2 % (0-3) Basophils (%) (Auto) 1 % (0-3) Neutrophils # (Auto) 7.1 x10^3/uL (1.8-7.7) Lymphocytes # (Auto) 1.1 x10^3/uL (1.0-4.8) Monocytes # (Auto) 0.7 x10^3/uL (0.0-1.1) Eosinophils # (Auto) 0.2 x10^3/uL (0.0-0.7) Basophils # (Auto) 0.0 x10^3/uL (0.0-0.2) Sodium Level 143 mmol/L (136-145) Potassium Level 3.2 mmol/L (3.5-5.1) Chloride Level 106 mmol/L (98-107) Carbon Dioxide Level 26 mmol/L (21-32) Anion Gap 11 (6-14) Blood Urea Nitrogen 10 mg/dL (7-20) Creatinine 0.9 mg/dL (0.6-1.0) Estimated GFR (Cockcroft-Gault) 61.7 BUN/Creatinine Ratio 11 (6-20) Glucose Level 108 mg/dL (70-99) Calcium Level 7.6 mg/dL (8.5-10.1) Total Bilirubin 0.5 mg/dL (0.2-1.0) Aspartate Amino Transf (AST/SGOT) 15 U/L (15-37) Alanine Aminotransferase (ALT/SGPT) 9 U/L (14-59) Alkaline Phosphatase 104 U/L (46-116) Total Protein 6.9 g/dL (6.4-8.2) Albumin 2.9 g/dL (3.4-5.0) Albumin/Globulin Ratio 0.7 (1.0-1.7) Laboratory Tests Test 12/22/20 15:30 12/22/20 15:37 12/22/20 17:15 12/22/20 20:25 Urine Collection Type Unknown Urine Color Myesha Urine Clarity Clear Urine pH 6.0 (<5.0-8.0) Urine Specific Gaines 1.025 (1.000-1.030) Urine Protein 100 mg/dL (NEG-TRACE) Urine Glucose (UA) Negative mg/dL (NEG) Urine Ketones (Stick) Trace mg/dL (NEG) Urine Blood Negative (NEG) Urine Nitrite Negative (NEG) Urine Bilirubin Small (NEG) Urine Urobilinogen Dipstick 1.0 mg/dL (0.2 mg/dL) Urine Leukocyte Esterase Small (NEG) Urine RBC 0 /HPF (0-2) Urine WBC 11-20 /HPF (0-4) Urine Squamous Epithelial Cells Mod /LPF Urine Bacteria Moderate /HPF (0-FEW) Urine Hyaline Casts Moderate /HPF Urine Mucus Mod /LPF White Blood Count 14.6 x10^3/uL (4.0-11.0) Red Blood Count 4.04 x10^6/uL (3.50-5.40) Hemoglobin 12.7 g/dL (12.0-15.5) Hematocrit 38.5 % (36.0-47.0) Mean Corpuscular Volume 95 fL (79-100) Mean Corpuscular Hemoglobin 31 pg (25-35) Mean Corpuscular Hemoglobin Concent 33 g/dL (31-37) Red Cell Distribution Width 17.2 % (11.5-14.5) Platelet Count 424 x10^3/uL (140-400) Neutrophils (%) (Auto) 86 % (31-73) Lymphocytes (%) (Auto) 7 % (24-48) Monocytes (%) (Auto) 6 % (0-9) Eosinophils (%) (Auto) 0 % (0-3) Basophils (%) (Auto) 1 % (0-3) Neutrophils # (Auto) 12.5 x10^3/uL (1.8-7.7) Lymphocytes # (Auto) 1.1 x10^3/uL (1.0-4.8) Monocytes # (Auto) 0.9 x10^3/uL (0.0-1.1) Eosinophils # (Auto) 0.0 x10^3/uL (0.0-0.7) Basophils # (Auto) 0.1 x10^3/uL (0.0-0.2) Sodium Level 141 mmol/L (136-145) Potassium Level 3.7 mmol/L (3.5-5.1) Chloride Level 104 mmol/L (98-107) Carbon Dioxide Level 24 mmol/L (21-32) Anion Gap 13 (6-14) Blood Urea Nitrogen 14 mg/dL (7-20) Creatinine 1.0 mg/dL (0.6-1.0) Estimated GFR (Cockcroft-Gault) 54.7 BUN/Creatinine Ratio 14 (6-20) Glucose Level 144 mg/dL (70-99) Lactic Acid Level 2.5 mmol/L (0.4-2.0) 0.8 mmol/L (0.4-2.0) Calcium Level 8.3 mg/dL (8.5-10.1) Magnesium Level 2.0 mg/dL (1.8-2.4) Total Bilirubin 0.7 mg/dL (0.2-1.0) Aspartate Amino Transf (AST/SGOT) 16 U/L (15-37) Alanine Aminotransferase (ALT/SGPT) 14 U/L (14-59) Alkaline Phosphatase 128 U/L (46-116) Creatine Kinase 43 U/L (26-192) Creatine Kinase MB (Mass) 1.1 ng/mL (0.0-3.6) Creatine Kinase MB Relative Index % (0-4) Troponin I Quantitative < 0.017 ng/mL (0.000-0.055) < 0.017 ng/mL (0.000-0.055) < 0.017 ng/mL (0.000-0.055) IK-Gjs-T-Type Natriuretic Peptide 1801 pg/mL (0-124) Total Protein 8.4 g/dL (6.4-8.2) Albumin 3.7 g/dL (3.4-5.0) Albumin/Globulin Ratio 0.8 (1.0-1.7) Procalcitonin < 0.10 ng/mL (0.00-0.10) Test 12/23/20 06:20 White Blood Count 9.2 x10^3/uL (4.0-11.0) Red Blood Count 3.69 x10^6/uL (3.50-5.40) Hemoglobin 11.6 g/dL (12.0-15.5) Hematocrit 35.1 % (36.0-47.0) Mean Corpuscular Volume 95 fL (79-100) Mean Corpuscular Hemoglobin 31 pg (25-35) Mean Corpuscular Hemoglobin Concent 33 g/dL (31-37) Red Cell Distribution Width 16.6 % (11.5-14.5) Platelet Count 336 x10^3/uL (140-400) Neutrophils (%) (Auto) 77 % (31-73) Lymphocytes (%) (Auto) 12 % (24-48) Monocytes (%) (Auto) 8 % (0-9) Eosinophils (%) (Auto) 2 % (0-3) Basophils (%) (Auto) 1 % (0-3) Neutrophils # (Auto) 7.1 x10^3/uL (1.8-7.7) Lymphocytes # (Auto) 1.1 x10^3/uL (1.0-4.8) Monocytes # (Auto) 0.7 x10^3/uL (0.0-1.1) Eosinophils # (Auto) 0.2 x10^3/uL (0.0-0.7) Basophils # (Auto) 0.0 x10^3/uL (0.0-0.2) Sodium Level 143 mmol/L (136-145) Potassium Level 3.2 mmol/L (3.5-5.1) Chloride Level 106 mmol/L (98-107) Carbon Dioxide Level 26 mmol/L (21-32) Anion Gap 11 (6-14) Blood Urea Nitrogen 10 mg/dL (7-20) Creatinine 0.9 mg/dL (0.6-1.0) Estimated GFR (Cockcroft-Gault) 61.7 BUN/Creatinine Ratio 11 (6-20) Glucose Level 108 mg/dL (70-99) Calcium Level 7.6 mg/dL (8.5-10.1) Total Bilirubin 0.5 mg/dL (0.2-1.0) Aspartate Amino Transf (AST/SGOT) 15 U/L (15-37) Alanine Aminotransferase (ALT/SGPT) 9 U/L (14-59) Alkaline Phosphatase 104 U/L (46-116) Total Protein 6.9 g/dL (6.4-8.2) Albumin 2.9 g/dL (3.4-5.0) Albumin/Globulin Ratio 0.7 (1.0-1.7) Medications Active Scripts Medications Dose Route/Sig Max Daily Dose Days Date Category Levothyroxine Sodium 75 Mcg Tablet 75 Mcg PO DAILYAC 09/01/19 Reported Amlodipine Besylate 10 Mg Tablet 10 Mg PO DAILY 09/01/19 Reported Omeprazole 40 Mg Capsule.dr 40 Mg PO DAILY 09/01/19 Reported Impression . Full consult dictated Patient with a history of breast cancer, throat cancer, I received chemoradiation for both. Presents now with bilateral pleural effusion right greater than left, clinical presentation compatible with pneumonia, suspect parapneumonic effusion. Discussed with interventional radiologist, will proceed with thoracentesis. I confirmed with patient she does not have esophageal cancer. JONNY ALEX MD Dec 23, 2020 09:06
[2020-12-23] MEDS: CEFEPIME HCL IV Push 1 GM VIAL. IVP SCH (09:25)
--- NOTE | 2020-12-23 09:46 | PDOC2 ---
ABDULAZIZ LLANOS RAIL SPLITTER 12/23/20 0946: CARDIAC CONSULT DATE OF CONSULT Date of Consult DATE: 12/23/20 TIME: 09:40 REASON FOR CONSULT Reason for Consult: Ascending aortic aneurysm REFERRING PHYSICIAN Referring Physician: Dr. Mcfarland SOURCE Source: Chart review, Patient HISTORY OF PRESENT ILLNESS HISTORY OF PRESENT ILLNESS This is a 70 yo female who presented secondary to shortness of breath. Patient has a history aspiration pneumonia secondary to esophageal strictures. Patient reports she laid down yesterday for a nap and woke up short of breath. Patient reports feeling similar in the past when she had aspiration PNA. She denies any dizziness, diaphoresis, or chest pain. Chest CTA noted with abdominal aortic aneurysm, which prompted this consult. PAST MEDICAL HISTORY Cardiovascular: HTN, Other Pulmonary: Pneumonia GI: GERD, Other (esophageal strictures ) Heme/Onc: Cancer (breast, throat) Endocrine: Hypothyroidism PAST SURGICAL HISTORY Past Surgical History: No pertinent history FAMILY HISTORY Family History: Hypertension SOCIAL HISTORY Smoke: No ALCOHOL: none Drugs: None CURRENT MEDICATIONS CURRENT MEDICATIONS Current Medications Medications (Trade) Dose Ordered Sig/Nora Route PRN Reason Start Time Stop Time Status Last Admin Dose Admin Levofloxacin/ Dextrose 100 ml @ 100 mls/hr 1X ONCE IV 12/22/20 15:45 12/22/20 16:44 DC 12/22/20 15:51 Iohexol (Omnipaque 350 Mg/ml) 90 ml 1X ONCE IV 12/22/20 16:30 12/22/20 16:31 DC 12/22/20 16:25 Cefepime HCl (Maxipime) 1 gm Q12HR IVP 12/22/20 19:00 12/23/20 09:25 Sodium Chloride 1,000 ml @ 60 mls/hr [id number] IV 12/22/20 18:30 12/22/20 20:58 Albuterol/ Ipratropium (Duoneb) 3 ml Q4H NEB 12/22/20 18:30 12/23/20 08:07 Enoxaparin Sodium (Lovenox 40mg Syringe) 40 mg Q24H SQ 12/22/20 21:00 12/22/20 20:55 Linezolid/Dextrose 300 ml @ 300 mls/hr Q12HR IV 12/22/20 21:00 12/23/20 09:25 ALLERGIES ALLERGIES: Coded Allergies: No Known Drug Allergies (Unverified , 12/29/19) ROS Review of System 14 point ROS conducted with pertinent positives noted above in HPI PHYSICAL EXAM General: Alert, Oriented X3, Cooperative, No acute distress HEENT: Atraumatic Lungs: Other (diminished bases) Heart: Regular rate, Other (3/6 systolic murmur ) Abdomen: Soft Extremities: No edema, Normal pulses Skin: No significant lesion Neuro: Normal speech, Sensation intact Psych/Mental Status: Mental status NL, Mood NL MUSCULOSKELETAL: Osteoarthritic changes both hands VITALS/I&O VITALS/I&O: Vital Signs Date Time Temp Pulse Resp B/P (MAP) Pulse Ox O2 Delivery O2 Flow Rate FiO2 12/23/20 08:08 95 Nasal Cannula 3.0 12/23/20 07:00 98.1 74 18 118/66 (83) 98.1 I & O 12/22/20 12/22/20 12/23/20 15:00 23:00 07:00 Intake Total 500 ml Balance 500 ml LABS Lab: Laboratory Tests Test 12/22/20 15:30 12/22/20 15:37 12/22/20 17:15 12/22/20 20:25 Urine Collection Type Unknown Urine Color Myesha Urine Clarity Clear Urine pH 6.0 (<5.0-8.0) Urine Specific [place] 1.025 (1.000-1.030) Urine Protein 100 mg/dL (NEG-TRACE) Urine Glucose (UA) Negative mg/dL (NEG) Urine Ketones (Stick) Trace mg/dL (NEG) Urine Blood Negative (NEG) Urine Nitrite Negative (NEG) Urine Bilirubin Small (NEG) Urine Urobilinogen Dipstick 1.0 mg/dL (0.2 mg/dL) Urine Leukocyte Esterase Small (NEG) Urine RBC 0 /HPF (0-2) Urine WBC 11-20 /HPF (0-4) Urine Squamous Epithelial Cells Mod /LPF Urine Bacteria Moderate /HPF (0-FEW) Urine Hyaline Casts Moderate /HPF Urine Mucus Mod /LPF White Blood Count 14.6 x10^3/uL (4.0-11.0) H Red Blood Count 4.04 x10^6/uL (3.50-5.40) Hemoglobin 12.7 g/dL (12.0-15.5) Hematocrit 38.5 % (36.0-47.0) Mean Corpuscular Volume 95 fL (79-100) Mean Corpuscular Hemoglobin 31 pg (25-35) Mean Corpuscular Hemoglobin Concent 33 g/dL (31-37) Red Cell Distribution Width 17.2 % (11.5-14.5) H Platelet Count 424 x10^3/uL (140-400) H Neutrophils (%) (Auto) 86 % (31-73) H Lymphocytes (%) (Auto) 7 % (24-48) L Monocytes (%) (Auto) 6 % (0-9) Eosinophils (%) (Auto) 0 % (0-3) Basophils (%) (Auto) 1 % (0-3) Neutrophils # (Auto) 12.5 x10^3/uL (1.8-7.7) H Lymphocytes # (Auto) 1.1 x10^3/uL (1.0-4.8) Monocytes # (Auto) 0.9 x10^3/uL (0.0-1.1) Eosinophils # (Auto) 0.0 x10^3/uL (0.0-0.7) Basophils # (Auto) 0.1 x10^3/uL (0.0-0.2) Sodium Level 141 mmol/L (136-145) Potassium Level 3.7 mmol/L (3.5-5.1) Chloride Level 104 mmol/L (98-107) Carbon Dioxide Level 24 mmol/L (21-32) Anion Gap 13 (6-14) Blood Urea Nitrogen 14 mg/dL (7-20) Creatinine 1.0 mg/dL (0.6-1.0) Estimated GFR (Cockcroft-Gault) 54.7 BUN/Creatinine Ratio 14 (6-20) Glucose Level 144 mg/dL (70-99) H Lactic Acid Level 2.5 mmol/L (0.4-2.0) H 0.8 mmol/L (0.4-2.0) Calcium Level 8.3 mg/dL (8.5-10.1) L Magnesium Level 2.0 mg/dL (1.8-2.4) Total Bilirubin 0.7 mg/dL (0.2-1.0) Aspartate Amino Transferase (AST) 16 U/L (15-37) Alanine Aminotransferase (ALT) 14 U/L (14-59) Alkaline Phosphatase 128 U/L (46-116) H Creatine Kinase 43 U/L (26-192) Creatine Kinase MB (Mass) 1.1 ng/mL (0.0-3.6) Creatine Kinase MB Relative Index % (0-4) Troponin I Quantitative < 0.017 ng/mL (0.000-0.055) < 0.017 ng/mL (0.000-0.055) < 0.017 ng/mL (0.000-0.055) US-Ozr-J-Type Natriuretic Peptide 1801 pg/mL (0-124) H Total Protein 8.4 g/dL (6.4-8.2) H Albumin 3.7 g/dL (3.4-5.0) Albumin/Globulin Ratio 0.8 (1.0-1.7) L Procalcitonin < 0.10 ng/mL (0.00-0.10) Test 12/23/20 06:20 White Blood Count 9.2 x10^3/uL (4.0-11.0) Red Blood Count 3.69 x10^6/uL (3.50-5.40) Hemoglobin 11.6 g/dL (12.0-15.5) L Hematocrit 35.1 % (36.0-47.0) L Mean Corpuscular Volume 95 fL (79-100) Mean Corpuscular Hemoglobin 31 pg (25-35) Mean Corpuscular Hemoglobin Concent 33 g/dL (31-37) Red Cell Distribution Width 16.6 % (11.5-14.5) H Platelet Count 336 x10^3/uL (140-400) Neutrophils (%) (Auto) 77 % (31-73) H Lymphocytes (%) (Auto) 12 % (24-48) L Monocytes (%) (Auto) 8 % (0-9) Eosinophils (%) (Auto) 2 % (0-3) Basophils (%) (Auto) 1 % (0-3) Neutrophils # (Auto) 7.1 x10^3/uL (1.8-7.7) Lymphocytes # (Auto) 1.1 x10^3/uL (1.0-4.8) Monocytes # (Auto) 0.7 x10^3/uL (0.0-1.1) Eosinophils # (Auto) 0.2 x10^3/uL (0.0-0.7) Basophils # (Auto) 0.0 x10^3/uL (0.0-0.2) Sodium Level 143 mmol/L (136-145) Potassium Level 3.2 mmol/L (3.5-5.1) L Chloride Level 106 mmol/L (98-107) Carbon Dioxide Level 26 mmol/L (21-32) Anion Gap 11 (6-14) Blood Urea Nitrogen 10 mg/dL (7-20) Creatinine 0.9 mg/dL (0.6-1.0) Estimated GFR (Cockcroft-Gault) 61.7 BUN/Creatinine Ratio 11 (6-20) Glucose Level 108 mg/dL (70-99) H Calcium Level 7.6 mg/dL (8.5-10.1) L Total Bilirubin 0.5 mg/dL (0.2-1.0) Aspartate Amino Transferase (AST) 15 U/L (15-37) Alanine Aminotransferase (ALT) 9 U/L (14-59) L Alkaline Phosphatase 104 U/L (46-116) Total Protein 6.9 g/dL (6.4-8.2) Albumin 2.9 g/dL (3.4-5.0) L Albumin/Globulin Ratio 0.7 (1.0-1.7) L Laboratory Tests 12/22/20 15:37 12/23/20 06:20 Laboratory Tests 12/22/20 15:37 12/23/20 06:20 ASSESSMENT/PLAN ASSESSMENT/PLAN 1. Dyspnea with bilateral pleural effusion and probable PNA. Thoracentesis today 2. H/o breast and throat CA; s/p chemo, radiation therapy 3. H/o esophageal stricture, aspiration PNA 4. Ascending aortic aneurysm; measuring up to 5.2 cm per CTA 5. Hypokalemia 6. Hypertension; controlled 7. Hypothyroidism Recommendation Echo today Replace K Check Mg and replace as warranted Treatment of PNA as per ID, Pulm Supportive care Further pending echo RON ARMSTRONG MD 12/23/20 1641: CARDIAC CONSULT ASSESSMENT/PLAN ASSESSMENT/PLAN Patient seen and examined I agree with our nurse practitioners assessment and plan. Dyspnea with bilateral pleural effusion and probable PNA. Thoracentesis pending H/o breast and throat CA; s/p chemo, radiation therapy H/o esophageal stricture, aspiration PNA Ascending aortic aneurysm; measuring up to 5.[address] Hypertension; controlled ABDULAZIZ LLANOS APRN Dec 23, 2020 09:46 RON ARMSTRONG MD Dec 23, 2020 16:41
--- NOTE | 2020-12-23 10:54 | PDOC ---
[facility] PROGRESS NOTE Date of Service DOS: DATE: 12/23/20 TIME: 10:52 Chief Complaint Chief Complaint A/P: Aspiration pneumonia ACUTE dense consolidative infiltrate with bronchiectasis involving the medial and lateral segments of the right middle lobe. HX Throat CANCER THROAT CA hx post radiation and chemotherapy WITH STRICTURE ACUTE HYPOXIC Respiratory failure BREAST CA, HX aneurysmal dilatation of the ascending aorta measuring up to 5.2 cm in greatest caliber. No intimal flap or dissection is seen ADMITTED BLOOD CULTURE PULM CONSULT ID CONSULT BLOOD CULTURE, SPUTUM CULTURE Emperic iv zyvox, cefepime q 12 hrs dvt prophylaxis O2 SUPPORT PROGNOSIS GUARDED CARDIOLOGY CONSULT ECHO History of Present Illness History of Present Illness Ms Salas is a 70 year old female with history of hypertension, aspiration pneumonia, esophageal strictures who presents to the ED complaining of shortness of breath that began after she took a nap today. and thinks she aspirated states she has had aspiration pneumonia from esophageal strictures before.states this feels similar to the last time she had aspiration pneumonia. no fever. she is a former smoker on CTA OF CHEST .dense consolidative infiltrate with bronchiectasis involving the medial and lateral segments of the right middle lobe. HX Throat CANCER WITH STRICTURE // ACUTE HYPOXIC Respiratory failure DUE to aspiration pneumonia, pulm and ID consulted, will start iv cefixime, zyvox pending ID consult, npo, ST TO SEE has know hx aspiration pneumonia hx aneurysmal dilatation of the ascending aorta measuring up to 5.2 cm in greatest caliber. No intimal flap or dissection is seen N.p.o. for thoracentesis today. Still coughing up quite a bit of sputum. Seen by ID switch from cefepime to Zosyn and doxycycline as well as Zyvox. Afebrile. She is pretty sure she is aspirating. She would like GI evaluation note she has previously been seen by Dr. Ivey for an esophageal dilation x3. K3.2, mag 1.8. Vitals/I&O Vitals/I&O: Vital Signs Date Time Temp Pulse Resp B/P (MAP) Pulse Ox O2 Delivery O2 Flow Rate FiO2 12/23/20 08:08 95 Nasal Cannula 3.0 12/23/20 07:00 98.1 74 18 118/66 (83) 98.1 I & O 12/22/20 12/22/20 12/23/20 15:00 23:00 07:00 Intake Total 500 ml Balance 500 ml Physical Exam General: Alert, Oriented X3, Cooperative, No acute distress Abdomen: Normal bowel sounds, Soft, No tenderness Extremities: No cyanosis Skin: No rashes Labs Labs: Laboratory Tests Test 12/22/20 15:30 12/22/20 15:37 12/22/20 17:15 12/22/20 20:25 Urine Collection Type Unknown Urine Color Myesha Urine Clarity Clear Urine pH 6.0 (<5.0-8.0) Urine Specific [place] 1.025 (1.000-1.030) Urine Protein 100 mg/dL (NEG-TRACE) Urine Glucose (UA) Negative mg/dL (NEG) Urine Ketones (Stick) Trace mg/dL (NEG) Urine Blood Negative (NEG) Urine Nitrite Negative (NEG) Urine Bilirubin Small (NEG) Urine Urobilinogen Dipstick 1.0 mg/dL (0.2 mg/dL) Urine Leukocyte Esterase Small (NEG) Urine RBC 0 /HPF (0-2) Urine WBC 11-20 /HPF (0-4) Urine Squamous Epithelial Cells Mod /LPF Urine Bacteria Moderate /HPF (0-FEW) Urine Hyaline Casts Moderate /HPF Urine Mucus Mod /LPF White Blood Count 14.6 x10^3/uL (4.0-11.0) Red Blood Count 4.04 x10^6/uL (3.50-5.40) Hemoglobin 12.7 g/dL (12.0-15.5) Hematocrit 38.5 % (36.0-47.0) Mean Corpuscular Volume 95 fL (79-100) Mean Corpuscular Hemoglobin 31 pg (25-35) Mean Corpuscular Hemoglobin Concent 33 g/dL (31-37) Red Cell Distribution Width 17.2 % (11.5-14.5) Platelet Count 424 x10^3/uL (140-400) Neutrophils (%) (Auto) 86 % (31-73) Lymphocytes (%) (Auto) 7 % (24-48) Monocytes (%) (Auto) 6 % (0-9) Eosinophils (%) (Auto) 0 % (0-3) Basophils (%) (Auto) 1 % (0-3) Neutrophils # (Auto) 12.5 x10^3/uL (1.8-7.7) Lymphocytes # (Auto) 1.1 x10^3/uL (1.0-4.8) Monocytes # (Auto) 0.9 x10^3/uL (0.0-1.1) Eosinophils # (Auto) 0.0 x10^3/uL (0.0-0.7) Basophils # (Auto) 0.1 x10^3/uL (0.0-0.2) Sodium Level 141 mmol/L (136-145) Potassium Level 3.7 mmol/L (3.5-5.1) Chloride Level 104 mmol/L (98-107) Carbon Dioxide Level 24 mmol/L (21-32) Anion Gap 13 (6-14) Blood Urea Nitrogen 14 mg/dL (7-20) Creatinine 1.0 mg/dL (0.6-1.0) Estimated GFR (Cockcroft-Gault) 54.7 BUN/Creatinine Ratio 14 (6-20) Glucose Level 144 mg/dL (70-99) Lactic Acid Level 2.5 mmol/L (0.4-2.0) 0.8 mmol/L (0.4-2.0) Calcium Level 8.3 mg/dL (8.5-10.1) Magnesium Level 2.0 mg/dL (1.8-2.4) Total Bilirubin 0.7 mg/dL (0.2-1.0) Aspartate Amino Transf (AST/SGOT) 16 U/L (15-37) Alanine Aminotransferase (ALT/SGPT) 14 U/L (14-59) Alkaline Phosphatase 128 U/L (46-116) Creatine Kinase 43 U/L (26-192) Creatine Kinase MB (Mass) 1.1 ng/mL (0.0-3.6) Creatine Kinase MB Relative Index % (0-4) Troponin I Quantitative < 0.017 ng/mL (0.000-0.055) < 0.017 ng/mL (0.000-0.055) < 0.017 ng/mL (0.000-0.055) DP-Pvz-U-Type Natriuretic Peptide 1801 pg/mL (0-124) Total Protein 8.4 g/dL (6.4-8.2) Albumin 3.7 g/dL (3.4-5.0) Albumin/Globulin Ratio 0.8 (1.0-1.7) Procalcitonin < 0.10 ng/mL (0.00-0.10) Test 12/23/20 06:20 White Blood Count 9.2 x10^3/uL (4.0-11.0) Red Blood Count 3.69 x10^6/uL (3.50-5.40) Hemoglobin 11.6 g/dL (12.0-15.5) Hematocrit 35.1 % (36.0-47.0) Mean Corpuscular Volume 95 fL (79-100) Mean Corpuscular Hemoglobin 31 pg (25-35) Mean Corpuscular Hemoglobin Concent 33 g/dL (31-37) Red Cell Distribution Width 16.6 % (11.5-14.5) Platelet Count 336 x10^3/uL (140-400) Neutrophils (%) (Auto) 77 % (31-73) Lymphocytes (%) (Auto) 12 % (24-48) Monocytes (%) (Auto) 8 % (0-9) Eosinophils (%) (Auto) 2 % (0-3) Basophils (%) (Auto) 1 % (0-3) Neutrophils # (Auto) 7.1 x10^3/uL (1.8-7.7) Lymphocytes # (Auto) 1.1 x10^3/uL (1.0-4.8) Monocytes # (Auto) 0.7 x10^3/uL (0.0-1.1) Eosinophils # (Auto) 0.2 x10^3/uL (0.0-0.7) Basophils # (Auto) 0.0 x10^3/uL (0.0-0.2) Sodium Level 143 mmol/L (136-145) Potassium Level 3.2 mmol/L (3.5-5.1) Chloride Level 106 mmol/L (98-107) Carbon Dioxide Level 26 mmol/L (21-32) Anion Gap 11 (6-14) Blood Urea Nitrogen 10 mg/dL (7-20) Creatinine 0.9 mg/dL (0.6-1.0) Estimated GFR (Cockcroft-Gault) 61.7 BUN/Creatinine Ratio 11 (6-20) Glucose Level 108 mg/dL (70-99) Calcium Level 7.6 mg/dL (8.5-10.1) Total Bilirubin 0.5 mg/dL (0.2-1.0) Aspartate Amino Transf (AST/SGOT) 15 U/L (15-37) Alanine Aminotransferase (ALT/SGPT) 9 U/L (14-59) Alkaline Phosphatase 104 U/L (46-116) Total Protein 6.9 g/dL (6.4-8.2) Albumin 2.9 g/dL (3.4-5.0) Albumin/Globulin Ratio 0.7 (1.0-1.7) Assessment and Plan Assessmemt and Plan Problems Medical Problems: (1) Aspiration pneumonia Status: Acute (2) Respiratory failure Status: Acute Comment Review of Relevant I have reviewed the following items elvira (where applicable) has been applied. Medications: Current Medications Medications (Trade) Dose Ordered Sig/Nora Route PRN Reason Start Time Stop Time Status Last Admin Dose Admin Levofloxacin/ Dextrose 100 ml @ 100 mls/hr 1X ONCE IV 12/22/20 15:45 12/22/20 16:44 DC 12/22/20 15:51 Iohexol (Omnipaque 350 Mg/ml) 90 ml 1X ONCE IV 12/22/20 16:30 12/22/20 16:31 DC 12/22/20 16:25 Cefepime HCl (Maxipime) 1 gm Q12HR IVP 12/22/20 19:00 12/23/20 09:25 Sodium Chloride 1,000 ml @ 60 mls/hr [id number] IV 12/22/20 18:30 12/22/20 20:58 Albuterol/ Ipratropium (Duoneb) 3 ml Q4H NEB 12/22/20 18:30 12/23/20 08:07 Enoxaparin Sodium (Lovenox 40mg Syringe) 40 mg Q24H SQ 12/22/20 21:00 12/22/20 20:55 Linezolid/Dextrose 300 ml @ 300 mls/hr Q12HR IV 12/22/20 21:00 12/23/20 10:06 DC 12/23/20 09:25 Justifications for Admission Other Justification aspiration pneumonia FREDDIE MI MD Dec 23, 2020 10:54
[2020-12-23] MEDS: DOXYCYCLINE HYCLATE 100 MG TABLET PO SCH ×2 (11:03→20:47)
[2020-12-23] MEDS ORDERED: POTASSIUM CHLORIDE 10MEQ 100 ML IV SCH (11:15)
[2020-12-23] MEDS: PIPERACILLIN/TAZOBACTAM 3.375 GM in IV NORMAL SALINE 50ML 50 ML IV SCH ×3 (11:38→23:48)
--- NOTE | 2020-12-23 12:46 | PDOC2 ---
GI CONSULT Date of Service: DATE: 12/23/20 TIME: 12:33 Reason For Consult: esophageal stricture history, now aspiration pneumonia HPI: HPI: Pleasant 70 y/o female admitted through ER. Took a nap yesterday, woke up and couldn't breathe, went to [facility] clinic, then to urgent care, then sent to ER for low O2 sat. Similar symptoms in the past - "fluid goes in my lungs." Imaging below w/ pneumonia, possible parapneumonic effusion. H/o dysphagia - solid foods (meats) get stuck in upper throat and she must cough to get it out. Occasionally problems with pills, never liquids. Less frequent w/ avoidance of certain foods. Past esophageal dilations w/ Dr. Ivey have been helpful. H/o GERD - good response to omeprazole QD. No n/v, abd pain, constipation, hematochezia, melena, or change in appetite. Reports fluctuating weight within the past year or so - up and down within a 20 pound range. Feels bloated today which causes some abdominal discomfort. Had some diarrhea Sunday and Sunday that has not recurred. EGD 01/2017: moderate stenosis in esophagus (dilated to 54Fr), esophageal mucosa changes c/w lichenoid mucositis, reactive gastropathy (negative for H. pylori), normal mucosa in duodenum. Esophagram 03/2017: aspiration of a portion of the initial bolus of oral contrast into the trachea and right mainstem bronchus. Video swallow 03/2017: moderate to severe oropharyngeal dysphagia w/ silent aspiration. EGD 08/2019: severe stenosis in esophagus (dilated to 36Fr), chronic inflammation int he esophagus (negative for Jarquin's), small hiatal hernia, gastritis (negative for H. pylori), normal mucosa in duodenum. EGD 12/2019: severe stenosis in esophagus (dilated to 39Fr), gastritis, normal mucosa in duodenum. Repeat EGD w/ dilation recommended in 2-3 months. Reports normal colonoscopy >10 years ago and normal "mail in cards" since then. No GB, liver, pancreas, or PUD history. Office notes indicate h/o lack of follow-up w/ [facility] [employer]. 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) s/p chemo/rad, breast cancer s/p left lumpectomy and chemo/rad, depression FH: Family History: No pertinent hx (denies GI cancers) Social History: Smoke: Quit (1993) ALCOHOL: none Drugs: None ROS: GEN: Denies fevers, chills, sweats HEENT: Denies blurred vision, sore throat CV: Denies chest pain RESP: +SOA GI: Per HPI : Denies hematuria, dysuria ENDO: +fluctuating weight NEURO: Denies confusion, dizziness MSK: Denies weakness, joint pain/swelling SKIN: Denies jaundice, pruritus Vitals: Vitals: Vital Signs Date Time Temp Pulse Resp B/P (MAP) Pulse Ox O2 Delivery O2 Flow Rate FiO2 12/23/20 11:42 Nasal Cannula 3.0 12/23/20 11:00 98.9 71 18 121/67 (85) 93 98.9 Labs: Labs: Laboratory Tests Test 12/22/20 15:30 12/22/20 15:37 12/22/20 17:15 12/22/20 20:25 Urine Collection Type Unknown Urine Color Myesha Urine Clarity Clear Urine pH 6.0 (<5.0-8.0) Urine Specific [place] 1.025 (1.000-1.030) Urine Protein 100 mg/dL (NEG-TRACE) Urine Glucose (UA) Negative mg/dL (NEG) Urine Ketones (Stick) Trace mg/dL (NEG) Urine Blood Negative (NEG) Urine Nitrite Negative (NEG) Urine Bilirubin Small (NEG) Urine Urobilinogen Dipstick 1.0 mg/dL (0.2 mg/dL) Urine Leukocyte Esterase Small (NEG) Urine RBC 0 /HPF (0-2) Urine WBC 11-20 /HPF (0-4) Urine Squamous Epithelial Cells Mod /LPF Urine Bacteria Moderate /HPF (0-FEW) Urine Hyaline Casts Moderate /HPF Urine Mucus Mod /LPF White Blood Count 14.6 x10^3/uL (4.0-11.0) Red Blood Count 4.04 x10^6/uL (3.50-5.40) Hemoglobin 12.7 g/dL (12.0-15.5) Hematocrit 38.5 % (36.0-47.0) Mean Corpuscular Volume 95 fL (79-100) Mean Corpuscular Hemoglobin 31 pg (25-35) Mean Corpuscular Hemoglobin Concent 33 g/dL (31-37) Red Cell Distribution Width 17.2 % (11.5-14.5) Platelet Count 424 x10^3/uL (140-400) Neutrophils (%) (Auto) 86 % (31-73) Lymphocytes (%) (Auto) 7 % (24-48) Monocytes (%) (Auto) 6 % (0-9) Eosinophils (%) (Auto) 0 % (0-3) Basophils (%) (Auto) 1 % (0-3) Neutrophils # (Auto) 12.5 x10^3/uL (1.8-7.7) Lymphocytes # (Auto) 1.1 x10^3/uL (1.0-4.8) Monocytes # (Auto) 0.9 x10^3/uL (0.0-1.1) Eosinophils # (Auto) 0.0 x10^3/uL (0.0-0.7) Basophils # (Auto) 0.1 x10^3/uL (0.0-0.2) Sodium Level 141 mmol/L (136-145) Potassium Level 3.7 mmol/L (3.5-5.1) Chloride Level 104 mmol/L (98-107) Carbon Dioxide Level 24 mmol/L (21-32) Anion Gap 13 (6-14) Blood Urea Nitrogen 14 mg/dL (7-20) Creatinine 1.0 mg/dL (0.6-1.0) Estimated GFR (Cockcroft-Gault) 54.7 BUN/Creatinine Ratio 14 (6-20) Glucose Level 144 mg/dL (70-99) Lactic Acid Level 2.5 mmol/L (0.4-2.0) 0.8 mmol/L (0.4-2.0) Calcium Level 8.3 mg/dL (8.5-10.1) Magnesium Level 2.0 mg/dL (1.8-2.4) Total Bilirubin 0.7 mg/dL (0.2-1.0) Aspartate Amino Transf (AST/SGOT) 16 U/L (15-37) Alanine Aminotransferase (ALT/SGPT) 14 U/L (14-59) Alkaline Phosphatase 128 U/L (46-116) Creatine Kinase 43 U/L (26-192) Creatine Kinase MB (Mass) 1.1 ng/mL (0.0-3.6) Creatine Kinase MB Relative Index % (0-4) Troponin I Quantitative < 0.017 ng/mL (0.000-0.055) < 0.017 ng/mL (0.000-0.055) < 0.017 ng/mL (0.000-0.055) SK-Dbf-N-Type Natriuretic Peptide 1801 pg/mL (0-124) Total Protein 8.4 g/dL (6.4-8.2) Albumin 3.7 g/dL (3.4-5.0) Albumin/Globulin Ratio 0.8 (1.0-1.7) Procalcitonin < 0.10 ng/mL (0.00-0.10) Test 12/23/20 06:20 White Blood Count 9.2 x10^3/uL (4.0-11.0) Red Blood Count 3.69 x10^6/uL (3.50-5.40) Hemoglobin 11.6 g/dL (12.0-15.5) Hematocrit 35.1 % (36.0-47.0) Mean Corpuscular Volume 95 fL (79-100) Mean Corpuscular Hemoglobin 31 pg (25-35) Mean Corpuscular Hemoglobin Concent 33 g/dL (31-37) Red Cell Distribution Width 16.6 % (11.5-14.5) Platelet Count 336 x10^3/uL (140-400) Neutrophils (%) (Auto) 77 % (31-73) Lymphocytes (%) (Auto) 12 % (24-48) Monocytes (%) (Auto) 8 % (0-9) Eosinophils (%) (Auto) 2 % (0-3) Basophils (%) (Auto) 1 % (0-3) Neutrophils # (Auto) 7.1 x10^3/uL (1.8-7.7) Lymphocytes # (Auto) 1.1 x10^3/uL (1.0-4.8) Monocytes # (Auto) 0.7 x10^3/uL (0.0-1.1) Eosinophils # (Auto) 0.2 x10^3/uL (0.0-0.7) Basophils # (Auto) 0.0 x10^3/uL (0.0-0.2) Sodium Level 143 mmol/L (136-145) Potassium Level 3.2 mmol/L (3.5-5.1) Chloride Level 106 mmol/L (98-107) Carbon Dioxide Level 26 mmol/L (21-32) Anion Gap 11 (6-14) Blood Urea Nitrogen 10 mg/dL (7-20) Creatinine 0.9 mg/dL (0.6-1.0) Estimated GFR (Cockcroft-Gault) 61.7 BUN/Creatinine Ratio 11 (6-20) Glucose Level 108 mg/dL (70-99) Calcium Level 7.6 mg/dL (8.5-10.1) Magnesium Level 1.8 mg/dL (1.8-2.4) Total Bilirubin 0.5 mg/dL (0.2-1.0) Aspartate Amino Transf (AST/SGOT) 15 U/L (15-37) Alanine Aminotransferase (ALT/SGPT) 9 U/L (14-59) Alkaline Phosphatase 104 U/L (46-116) Total Protein 6.9 g/dL (6.4-8.2) Albumin 2.9 g/dL (3.4-5.0) Albumin/Globulin Ratio 0.7 (1.0-1.7) Allergies: Coded Allergies: No Known Drug Allergies (Unverified , 12/29/19) Medications: Current Medications Medications (Trade) Dose Ordered Sig/Nora Route PRN Reason Start Time Stop Time Status Last Admin Dose Admin Levofloxacin/ Dextrose 100 ml @ 100 mls/hr 1X ONCE IV 12/22/20 15:45 12/22/20 16:44 DC 12/22/20 15:51 Iohexol (Omnipaque 350 Mg/ml) 90 ml 1X ONCE IV 12/22/20 16:30 12/22/20 16:31 DC 12/22/20 16:25 Cefepime HCl (Maxipime) 1 gm Q12HR IVP 12/22/20 19:00 12/23/20 10:55 DC 12/23/20 09:25 Sodium Chloride 1,000 ml @ 60 mls/hr [id number] IV 12/22/20 18:30 12/22/20 20:58 Albuterol/ Ipratropium (Duoneb) 3 ml Q4H NEB 12/22/20 18:30 12/23/20 11:39 Enoxaparin Sodium (Lovenox 40mg Syringe) 40 mg Q24H SQ 12/22/20 21:00 12/22/20 20:55 Linezolid/Dextrose 300 ml @ 300 mls/hr Q12HR IV 12/22/20 21:00 12/23/20 10:06 DC 12/23/20 09:25 Piperacillin Sod/ Tazobactam Sod 3.375 gm/Sodium Chloride 50 ml @ 100 mls/hr Q6HRS IV 12/23/20 12:00 12/23/20 11:38 Doxycycline Hyclate (Vibra-Tab) 100 mg BID PO 12/23/20 12:00 12/23/20 11:03 Imaging: Imaging: CXR IMPRESSION: * Patchy opacity most prominent at the right lung base could be secondary to infiltrate with other possible causes including aspiration. Would also obtain a follow-up to ensure this resolves to exclude any neoplastic causes. * Mild interstitial opacities are seen bilaterally as well which can be seen with pulmonary vascular congestion or interstitial infiltrate. A portion may be chronic as well. Chest CTA IMPRESSION: No pulmonary embolism. Bilateral pleural effusions right greater than left with associated compressive atelectasis or consolidative infiltrate within both posterior lower lobes. Small area of nodular infiltrate or atelectasis of the superior segment of the right lower lobe. Opacification with bronchiectasis of the right middle lobe and lingula. Given the bronchiectasis, the opacification most likely is chronic scarring or chronic atelectasis. Bilateral perihilar groundglass lung infiltrate may be indicative of pulmonary edema. Aneurysmal dilatation of the ascending aorta without intimal flap or dissection. Mild calcified atheromatous disease of the coronary arteries. Mediastinal lymphadenopathy which may be reactive. PE: GEN: NAD HEENT: Atraumatic, PERRL - voice hoarse LUNGS: diminished, NC 5L HEART: RRR ABD: NABS, S/ND/NT EXTREMITY: No edema SKIN: No rashes, no jaundice NEURO/PSYCH: A & O 3 A/P: A/P: Bilateral pleural effusions, pneumonia Dysphagia, h/o esophageal stenosis w/ past dilations (last 12/2019 to 39Fr), h/o aspiration Normocytic anemia GERD - on PPI CRC screen - H/o throat and breast cancer COVID negative -- Plans for echocardiogram, thoracentesis, and [facility] [employer] eval today. Continue PPI. Probably needs another EGD - currently not a great candidate considering pulmonary status. MARIELY MCKEON Dec 23, 2020 12:46
[2020-12-23] MEDS: POTASSIUM CHLORIDE 10MEQ 100 ML IV SCH ×4 (13:19→18:02)
--- NOTE | 2020-12-23 13:35 | NUR ---
SS following for discharge planning. SS reviewed pt chart and discussed with pt RN. Pt is from home and is currently requiring oxygen at 3-5 liters nasal canula. Pt has no home oxygen. Pt on IV Zosyn. NPO. PT/OT/ST ordered. Pt having ECHO and Thoracentesis today. SS will continue to follow for discharge planning.
[2020-12-23 14:33] LABS: PROTHROMBIN TIME PATIENT 14.2 SEC (11.7-14.0)
--- NOTE | 2020-12-23 15:39 | CONS ---
DATE OF CONSULTATION: 12/23/2020 REFERRING PHYSICIAN: Dr. Mcfarland. REASON FOR CONSULTATION: Antibiotic management for aspiration pneumonia. HISTORY OF PRESENT ILLNESS: A 70-year-old female with history of breast cancer and throat cancer, esophageal stenosis, dysphagia, status post EGD in the past, presented to the ER with complaints of worsening shortness of breath, which started last Sunday. The patient also had fever, had one episode of diarrhea. She is a former smoker. She completed her COVID vaccine in August with both doses and tolerated it well. She denies any sick contact. She has cough with yellow sputum. Denies any headache, sore throat, nausea, vomiting, abdominal pain, though she has abdominal bloating, symptoms, rash. She lives alone. No recent hospitalization. She was given a dose of Levaquin. She was afebrile, but required 5 liters O2 by nasal cannula. White count was 14.6. Troponin was normal. Lactate was 2.5. BNP of 1801, albumin of 3.7. UA showed small bilirubin, otherwise small leukocyte esterase, 11-20 wbc's. PCR was negative. The patient underwent chest x-ray which revealed a patchy opacity in the right lung base, interstitial changes. She underwent CT chest, which showed bilateral pleural effusion, right greater than left with associated compressive atelectasis or consolidative infiltrate within the lower lobes, opacification with bronchiectasis of right middle lobe and lingula. Given the bronchiectasis and opacification, most likely is chronic scarring or chronic bronchiectasis, bilateral perihilar ground-glass lung infiltrate suggestive of pulmonary edema, aneurysmal dilatation of the aortic aorta. Mild calcified atheromatous disease of the coronary arteries, mediastinal lymphadenopathy, which may be reactive. The patient currently feels a little better. PAST MEDICAL HISTORY: Mouth and throat cancer, dysphagia, esophageal stenosis, esophageal stricture, status post EGD, bronchitis, osteoarthritis. FAMILY HISTORY: As per HPI. SOCIAL HISTORY: Quit smoking. No alcohol, no drugs. Lives alone. No pets. CURRENT MEDICATIONS: Cefepime, also received Levaquin and zyvox. Other medications reviewed in medication list. ALLERGIES: No known drug allergies. REVIEW OF SYSTEMS: Negative except for above in HPI. PHYSICAL EXAMINATION: VITAL SIGNS: Temperature 98.1, pulse 74, respiratory rate 18, blood pressure 118/66, oxygen saturation 98% on 3 liters O2 by nasal cannula. GENERAL: Alert, oriented x 3 female sitting upright in chair in no acute distress. HEENT: Normocephalic, atraumatic. Anicteric. No thrush. NECK: Supple. LUNGS: Decreased breath sounds at both the lung bases. No wheezing. HEART: S1, S2, systolic murmur. ABDOMEN: Soft, nontender, nondistended, no rebound or guarding. EXTREMITIES: No edema, no cyanosis. DERMATOLOGIC: Warm, dry, no generalized rash. NEUROLOGIC: Alert, oriented x 3, grossly nonfocal. PSYCHIATRIC: Calm and cooperative. PIV looks clean. LABORATORY DATA: WBC was 9.2, was 14.6; hemoglobin 11.6; hematocrit 35.1; platelets 336. Sodium 143, potassium 3.2, chloride 106, bicarbonate 26, BUN 10, creatinine 0.9, glucose 108. Lactate 0.8, was 2.5. AST, ALT within normal limits. Albumin 2.9. SARS COVID PCR negative. iMAGING: Chest CT as above in HPI. Chest x-ray as above in HPI. IMPRESSION: 1. Febrile illness. 2. Pneumonia with underlying bronchiectasis. 3. Bilateral pleural effusion. 4. Leukocytosis and lactic acidosis. 5. History of breast cancer, mouth and throat cancer. 5. History of esophageal stenosis, dysphagia, status post EGD in the past. 6. Bronchitis. 7. Anemia. 8. Hypokalemia. 9. Protein calorie malnutrition. RECOMMENDATIONS: 1. Discontinue cefepime. 2. Start Zosyn 3. Start doxycycline. 4. Pulmonary is evaluating the patient's. Plans are for thoracocentesis today. 5. Maintain aspiration precaution. 6. Followup labs and cultures. 7. Continue supportive care. Discussed with nursing staff. Thank you, Dr. Mcfarland for consulting Infectious Disease to participate in this patient's care. If you have any questions, do not hesitate to contact me. CARLOS/JOSELITO PATEL: Jillian TID: [id number] [facility]
[2020-12-23] MEDS ORDERED: MAGNESIUM SULFATE 2GM 50 ML IV ONE (17:00)
[2020-12-23] MEDS: IV NORMAL SALINE 1000ML BAG 1,000 ML IV SCH (19:16)
[2020-12-23] MEDS: PANTOPRAZOLE 40 MG TABLET.DR. PO SCH (20:46)
[2020-12-23] MEDS: LEVOTHYROXINE 100 MCG TABLET PO SCH (20:46)
[2020-12-23] MEDS: ENOXAPARIN 40 MG/0.4 ML SYRINGE. SQ SCH (20:47)
[2020-12-24] MEDS: IPRATRPIUM/ALBUTEROL 0.5/2.5MG 3 ML NEBU. NEB SCH ×7 (01:00→22:30)
--- NOTE | 2020-12-24 01:30 | CONS ---
DATE OF CONSULTATION: 12/23/2020 ATTENDING PHYSICIAN: Melchor Mcfarland MD CONSULTING PHYSICIAN: Josefina Davis MD REASON FOR CONSULTATION: The patient is seen in pulmonary consultation at the request of Dr. Mcfarland for acute hypoxemic respiratory failure, abnormal CT chest. HISTORY OF PRESENT ILLNESS: The patient is a 70-year-old with a prior history of breast cancer, lumpectomy in 1999 status post chemoradiation, throat cancer in 1993, status post chemoradiation. The patient moved to the [facility] approximately 5 years ago. Her cancer diagnosis was made on the [place] side. She presented yesterday with increased shortness of breath, went to urgent care center, was found to have saturations of 68%. She then was seen in the Emergency Room, was evaluated. underwent CT angiogram, which I personally reviewed. There was no evidence of pulmonary emboli. There was evidence of some infiltrates, effusion on the right greater than left with some compressive atelectasis. There is also ground glass opacities. The patient also has a history of prior dysphagia. She has had previous esophageal stretching. She has a history of aspiration pneumonia. On Sunday last week, she had a fever of 101. She went to see her PCP, Dr. Thompson, sometime this week. She was not started on antibiotics. There was a workup for the possibility of what sounds like CHF. The patient was scheduled to undergo echocardiogram. She presented with O2 sats that were low. She was admitted. I was asked to see her in consultation. She quit tobacco in 1993. She had COVID vaccination back in August. She has had no COVID exposures. PAST MEDICAL HISTORY: 1. Hypertension. 2. History of breast cancer, status post chemoradiation after lumpectomy in the year 2006. 3. History of throat cancer. The patient apparently had epiglottic involvement. She underwent chemoradiation in 1993. 4. Previous aspiration pneumonia. 5. History of esophageal stricture, status post dilatation, with a possible recurrent aspiration. 6. COPD, unknown FEV1. 7. Tobacco dependent, quit in 1993. 8. Osteoarthritis. FAMILY HISTORY: No family history of lung disorders. VACCINATION HISTORY: The patient received COVID vaccination back in August. CURRENT MEDICATIONS: List from home included levothyroxine, amlodipine, omeprazole. ALLERGIES: No known drug allergies. REVIEW OF SYSTEMS: CONSTITUTIONAL: Fever last Sunday. HENT: No nasal congestion or sore throat. PULMONARY: As indicated above. CARDIOVASCULAR: No chest pain, no pressure. GASTROINTESTINAL: As indicated above. GENITOURINARY: No dysuria or frequency. MUSCULOSKELETAL: No localized muscle aches or joint pains. SKIN: No new skin rashes. NEUROLOGIC: No headaches, diplopia or blurred vision. CURRENT MEDICATION: List was reviewed. The patient is receiving Zyvox and cefepime. PHYSICAL EXAMINATION: VITAL SIGNS: Stable. O2 saturation was greater than 92%, currently on 4 liters. T-max 98.1. HEENT: Eyes, the sclerae were nonicteric. NECK: Jugular venous distention was not elevated. No lymphadenopathy. CHEST: Full expansion. LUNGS: Diminished breath sounds, right greater than left with scattered rhonchi. CARDIOVASCULAR: Regular rate and rhythm with S1, S2, no S3. Grade 2/6 systolic ejection murmur. ABDOMEN: Soft, nontender. EXTREMITIES: No clubbing, cyanosis or edema. LABORATORY DATA: White count was 14,000, hemoglobin and hematocrit were noted. Potassium was low. BUN and creatinine were noted. CT chest reviewed. No evidence of pulmonary emboli. There is evidence of bilateral pleural effusion, right greater than left. There is also evidence of right middle lobe bronchiectasis, ground glass opacities and some mediastinal adenopathy. IMPRESSION: 1. Acute hypoxemic respiratory failure, multifactorial. 2. Suspect pneumonia complicated with parapneumonic effusion. 3. Bilateral pleural effusion, right greater than left. Rule out possibility of malignant effusion. 4. History of breast cancer in 2006 status post lumpectomy, chemoradiation. 5. History of throat cancer, epiglottic involvement, status post chemoradiation in 1993. 6. Chronic obstructive pulmonary disease, unknown FEV1. 7. Tobacco dependence in remission. 8. Significant grade 2/6 systolic ejection murmur. 9. Hypertension. 10. Dysphagia, status post esophageal stricture dilatation. 11. History of aspiration pneumonia. PLAN: 1. Case discussed with interventional radiologist, will proceed with a thoracentesis. Risks, benefits and alternatives reviewed with the patient. She consented. 2. Empiric antibiotics. 3. Nebulized treatments. 4. Oxygen supplementation. 5. Deep venous thrombosis prophylaxis. 6. PPI. 7. Speech evaluation. 8. Cardiology consult, already performed. I do appreciate the privilege in sharing in the patient's care. Total time reviewing the patient's current information, interviewing, examining the patient, reviewing the CAT scan, discussion with interventional radiologist of approximately 50 minutes. WENDI/DEON/SAMY DR: Morenita TID: [id number]
[2020-12-24 02:18] VITALS: BP 116/69
[2020-12-24] MEDS: PIPERACILLIN/TAZOBACTAM 3.375 GM in IV NORMAL SALINE 50ML 50 ML IV SCH ×4 (05:13→23:23)
--- NOTE | 2020-12-24 06:41 | PDOC ---
Infectious Disease Note Subjective: Subjective Patient feels much better after thoracocentesis yesterday Cough and shortness of breath have improved Remains on nasal O2 Denies any fever, nausea, vomiting, diarrhea Vital Signs: Vital Signs Vital Signs Date Time Temp Pulse Resp B/P (MAP) Pulse Ox O2 Delivery O2 Flow Rate FiO2 12/24/20 04:00 97 Nasal Cannula 5.0 12/24/20 02:18 98.0 80 18 116/69 (85) 98.0 Physical Exam: PHYSICAL EXAM GENERAL: Alert, oriented x 3 female sitting upright in chair in no acute distress. HEENT: Normocephalic, atraumatic. Anicteric. No thrush. NECK: Supple. LUNGS: Decreased breath sounds at both the lung bases with crackles. No wheezing. HEART: S1, S2, systolic murmur. ABDOMEN: Soft, nontender, nondistended, no rebound or guarding. EXTREMITIES: No edema, no cyanosis. DERMATOLOGIC: Warm, dry, no generalized rash. NEUROLOGIC: Alert, oriented x 3, grossly nonfocal. PSYCHIATRIC: Calm and cooperative. PIV looks clean. Medications: Inpatient Meds: Medications reviewed. Labs: Lab Laboratory Tests Test 12/23/20 14:15 12/23/20 14:45 Prothrombin Time 14.2 SEC (11.7-14.0) Prothromb Time International Ratio 1.1 (0.8-1.1) Body Fluid pH 7.48 Objective: Assessment: 1. Febrile illness. Pattern improved 2. Pneumonia with underlying bronchiectasis. 3. Bilateral pleural effusion. Status post right thoracocentesis, pH 7.48 4. Leukocytosis and lactic acidosis. 5. History of breast cancer, mouth and throat cancer. 5. History of esophageal stenosis, dysphagia, status post EGD in the past. 6. Bronchitis. 7. Anemia. 8. Hypokalemia. 9. Protein calorie malnutrition. Plan: Plan of Care Zosyn,doxycycline. Status post thoracocentesis Followup labs and cultures. Discussed with nursing staff. GREGORIO SUGGS MD Dec 24, 2020 06:41
[2020-12-24 07:00] VITALS: BP 131/82
--- NOTE | 2020-12-24 07:52 | CARD ---
MR#: [id number] Date of Study: 12/23/2020 Ordering Physician: ZI DURAND, Referring Physician: ZI DURAND, Tech: Maylin Meyers, [facility] APPROVED REPORT EXAM: Two-dimensional and M-mode echocardiogram with Doppler and color Doppler. Other Information Quality : AverageHR: 83bpm INDICATION Dyspnea Ascending Aortic Aneurysm RISK FACTORS Hypertension 2D DIMENSIONS RVDd3.2 (2.9-3.5cm)Left Atrium(2D)3.6 (1.6-4.0cm) IVSd1.2 (0.7-1.1cm)Aortic Root(2D)3.4 (2.0-3.7cm) LVDd5.4 (3.9-5.9cm)LVOT Diameter2.3 (1.8-2.4cm) PWd1.0 (0.7-1.1cm)LVDs2.8 (2.5-4.0cm) FS (%) 47.4 %SV108.6 ml LVEF(%)78.3 (>50%) Aortic Valve AoV Peak Chandan.311.8cm/sAoV VTI71.3cm AO Peak GR.38.9mmHgLVOT Peak Chandan.118.1cm/s LVOT VTI 26.94cmAO Mean GR.23mmHg DOMINGO (VMAX)1.03tq7QCL (VTI)1.51cm2 AI P 1/2 Iivu937dc Mitral Valve MV E Zqrlqesk330.3cm/sMV DECEL DFSD610on MV A Cfgwnjlk27.2cm/sMV VYO27hj E/A Ratio1.1MVA (PHT)3.85cm2 TDI E/Lateral E'12.8E/Medial E'17.3 Pulmonary Valve PV Peak Qcrmbrgk541.2cm/sPV Peak Grad.5mmHg Tricuspid Valve TR P. Lctikqyt305uw/sRAP FHVKARXK1oeXc TR Peak Gr.79voXwEAPH56qtKm LEFT VENTRICLE The left ventricle is normal size. There is mild concentric left ventricular hypertrophy. The left ve ntricular systolic function is normal and the ejection fraction is within normal range. The Ejection Fraction is 55-60%. There is normal LV segmental wall motion. Transmitral Doppler flow pattern is Gra de II-pseudonormal filling dynamics. RIGHT VENTRICLE The right ventricle is borderline dilated. There is normal right ventricular wall thickness. The righ t ventricular systolic function is normal. ATRIA The left atrium is mildly dilated. The right atrium size is normal. The interatrial septum is intact with no evidence for an atrial septal defect or patent foramen ovale as noted on 2-D or Doppler imagi ng. AORTIC VALVE The aortic valve is calcified and displays decreased opening. Doppler and Color Flow revealed trace t o mild aortic regurgitation. Calculated aortic valve area is 1.15 cm2 with maximum pressure gradient of 54 mmHg and mean pressure gradient of 32 mmHg. Doppler and color-flow analysis revealed moderate a ortic stenosis. MITRAL VALVE The mitral valve is normal in structure and function. There is no evidence of mitral valve prolapse. There is no mitral valve stenosis. Doppler and Color-flow revealed trace to mild mitral regurgitation . TRICUSPID VALVE The tricuspid valve is normal in structure and function. Doppler and Color Flow revealed mild tricusp id regurgitation with an estimated PAP of 60 mmHg. There is moderate pulmonary hypertension. There is no tricuspid valve stenosis. PULMONIC VALVE The pulmonic valve is not well visualized. Doppler and Color Flow revealed trace pulmonic valvular re gurgitation. There is no pulmonic valvular stenosis. GREAT VESSELS The aortic root is normal in size. The ascending aorta is mildly dilated measuring 4.1 cm. The IVC is normal in size and collapses >50% with inspiration. PERICARDIAL EFFUSION There is no evidence of significant pericardial effusion. Critical Notification Critical Value: No <Conclusion> The left ventricular systolic function is normal and the ejection fraction is within normal range. Th e Ejection Fraction is 55-60%. There is normal LV segmental wall motion. Calculated aortic valve area is 1.15 cm2 with maximum pressure gradient of 54 mmHg and mean pressure gradient of 32 mmHg. Doppler and color-flow analysis revealed moderate aortic stenosis. Doppler and Color Flow revealed mild tricuspid regurgitation with an estimated PAP of 60 mmHg. There is moderate pulmonary hypertension. The ascending aorta is mildly dilated measuring 4.1 cm. Signed by : Armond Biswas, Electronically Approved : 12/24/2020 07:52:01
--- NOTE | 2020-12-24 08:33 | PDOC ---
PULMONARY PROGRESS NOTES DATE: 12/24/20 TIME: 08:32 Subjective Pt. is resting on 5 liters N/C S/P thoracentesis 12/23 feeling better no overnight events Vitals Vital Signs Date Time Temp Pulse Resp B/P (MAP) Pulse Ox O2 Delivery O2 Flow Rate FiO2 12/24/20 07:23 92 Nasal Cannula 5.0 12/24/20 07:00 97.4 74 20 131/82 (98) 97.4 ROS: No Nausea, No Chest Pain, No Abdominal Pain, No Increase Cough General: Alert, Oriented X4 Cardiovascular: S2 Abdomen: Soft Neuro Exam: Alert Labs Laboratory Tests Test 12/22/20 15:30 12/22/20 15:37 12/22/20 17:15 12/22/20 20:25 Urine Collection Type Unknown Urine Color Myesha Urine Clarity Clear Urine pH 6.0 (<5.0-8.0) Urine Specific [place] 1.025 (1.000-1.030) Urine Protein 100 mg/dL (NEG-TRACE) Urine Glucose (UA) Negative mg/dL (NEG) Urine Ketones (Stick) Trace mg/dL (NEG) Urine Blood Negative (NEG) Urine Nitrite Negative (NEG) Urine Bilirubin Small (NEG) Urine Urobilinogen Dipstick 1.0 mg/dL (0.2 mg/dL) Urine Leukocyte Esterase Small (NEG) Urine RBC 0 /HPF (0-2) Urine WBC 11-20 /HPF (0-4) Urine Squamous Epithelial Cells Mod /LPF Urine Bacteria Moderate /HPF (0-FEW) Urine Hyaline Casts Moderate /HPF Urine Mucus Mod /LPF White Blood Count 14.6 x10^3/uL (4.0-11.0) Red Blood Count 4.04 x10^6/uL (3.50-5.40) Hemoglobin 12.7 g/dL (12.0-15.5) Hematocrit 38.5 % (36.0-47.0) Mean Corpuscular Volume 95 fL (79-100) Mean Corpuscular Hemoglobin 31 pg (25-35) Mean Corpuscular Hemoglobin Concent 33 g/dL (31-37) Red Cell Distribution Width 17.2 % (11.5-14.5) Platelet Count 424 x10^3/uL (140-400) Neutrophils (%) (Auto) 86 % (31-73) Lymphocytes (%) (Auto) 7 % (24-48) Monocytes (%) (Auto) 6 % (0-9) Eosinophils (%) (Auto) 0 % (0-3) Basophils (%) (Auto) 1 % (0-3) Neutrophils # (Auto) 12.5 x10^3/uL (1.8-7.7) Lymphocytes # (Auto) 1.1 x10^3/uL (1.0-4.8) Monocytes # (Auto) 0.9 x10^3/uL (0.0-1.1) Eosinophils # (Auto) 0.0 x10^3/uL (0.0-0.7) Basophils # (Auto) 0.1 x10^3/uL (0.0-0.2) Sodium Level 141 mmol/L (136-145) Potassium Level 3.7 mmol/L (3.5-5.1) Chloride Level 104 mmol/L (98-107) Carbon Dioxide Level 24 mmol/L (21-32) Anion Gap 13 (6-14) Blood Urea Nitrogen 14 mg/dL (7-20) Creatinine 1.0 mg/dL (0.6-1.0) Estimated GFR (Cockcroft-Gault) 54.7 BUN/Creatinine Ratio 14 (6-20) Glucose Level 144 mg/dL (70-99) Lactic Acid Level 2.5 mmol/L (0.4-2.0) 0.8 mmol/L (0.4-2.0) Calcium Level 8.3 mg/dL (8.5-10.1) Magnesium Level 2.0 mg/dL (1.8-2.4) Total Bilirubin 0.7 mg/dL (0.2-1.0) Aspartate Amino Transf (AST/SGOT) 16 U/L (15-37) Alanine Aminotransferase (ALT/SGPT) 14 U/L (14-59) Alkaline Phosphatase 128 U/L (46-116) Creatine Kinase 43 U/L (26-192) Creatine Kinase MB (Mass) 1.1 ng/mL (0.0-3.6) Creatine Kinase MB Relative Index % (0-4) Troponin I Quantitative < 0.017 ng/mL (0.000-0.055) < 0.017 ng/mL (0.000-0.055) < 0.017 ng/mL (0.000-0.055) YG-Jtv-V-Type Natriuretic Peptide 1801 pg/mL (0-124) Total Protein 8.4 g/dL (6.4-8.2) Albumin 3.7 g/dL (3.4-5.0) Albumin/Globulin Ratio 0.8 (1.0-1.7) Procalcitonin < 0.10 ng/mL (0.00-0.10) Test 12/23/20 06:20 12/23/20 14:15 12/23/20 14:45 White Blood Count 9.2 x10^3/uL (4.0-11.0) Red Blood Count 3.69 x10^6/uL (3.50-5.40) Hemoglobin 11.6 g/dL (12.0-15.5) Hematocrit 35.1 % (36.0-47.0) Mean Corpuscular Volume 95 fL (79-100) Mean Corpuscular Hemoglobin 31 pg (25-35) Mean Corpuscular Hemoglobin Concent 33 g/dL (31-37) Red Cell Distribution Width 16.6 % (11.5-14.5) Platelet Count 336 x10^3/uL (140-400) Neutrophils (%) (Auto) 77 % (31-73) Lymphocytes (%) (Auto) 12 % (24-48) Monocytes (%) (Auto) 8 % (0-9) Eosinophils (%) (Auto) 2 % (0-3) Basophils (%) (Auto) 1 % (0-3) Neutrophils # (Auto) 7.1 x10^3/uL (1.8-7.7) Lymphocytes # (Auto) 1.1 x10^3/uL (1.0-4.8) Monocytes # (Auto) 0.7 x10^3/uL (0.0-1.1) Eosinophils # (Auto) 0.2 x10^3/uL (0.0-0.7) Basophils # (Auto) 0.0 x10^3/uL (0.0-0.2) Sodium Level 143 mmol/L (136-145) Potassium Level 3.2 mmol/L (3.5-5.1) Chloride Level 106 mmol/L (98-107) Carbon Dioxide Level 26 mmol/L (21-32) Anion Gap 11 (6-14) Blood Urea Nitrogen 10 mg/dL (7-20) Creatinine 0.9 mg/dL (0.6-1.0) Estimated GFR (Cockcroft-Gault) 61.7 BUN/Creatinine Ratio 11 (6-20) Glucose Level 108 mg/dL (70-99) Calcium Level 7.6 mg/dL (8.5-10.1) Magnesium Level 1.8 mg/dL (1.8-2.4) Total Bilirubin 0.5 mg/dL (0.2-1.0) Aspartate Amino Transf (AST/SGOT) 15 U/L (15-37) Alanine Aminotransferase (ALT/SGPT) 9 U/L (14-59) Alkaline Phosphatase 104 U/L (46-116) Total Protein 6.9 g/dL (6.4-8.2) Albumin 2.9 g/dL (3.4-5.0) Albumin/Globulin Ratio 0.7 (1.0-1.7) Vitamin B12 Level 311 pg/mL (247-911) Prothrombin Time 14.2 SEC (11.7-14.0) Prothromb Time International Ratio 1.1 (0.8-1.1) Body Fluid pH 7.48 Laboratory Tests Test 12/23/20 14:15 12/23/20 14:45 Prothrombin Time 14.2 SEC (11.7-14.0) Prothromb Time International Ratio 1.1 (0.8-1.1) Body Fluid pH 7.48 Medications Active Scripts Medications Dose Route/Sig Max Daily Dose Days Date Category Levothyroxine Sodium 75 Mcg Tablet 75 Mcg PO DAILYAC 09/01/19 Reported Amlodipine Besylate 10 Mg Tablet 10 Mg PO DAILY 09/01/19 Reported Omeprazole 40 Mg Capsule.dr 40 Mg PO DAILY 09/01/19 Reported Impression . IMPRESSION: 1. Acute hypoxemic respiratory failure, multifactorial. 2. Suspect pneumonia complicated with parapneumonic effusion. 3. Bilateral pleural effusion, right greater than left. Rule out possibility of malignant effusion-- S/P thoracentesis 12/23/20 4. History of breast cancer in 2006 status post lumpectomy, chemoradiation. 5. History of throat cancer, epiglottic involvement, status post chemoradiation in 1993. 6. Chronic obstructive pulmonary disease, unknown FEV1. 7. Tobacco dependence in remission. 8. Significant grade 2/6 systolic ejection murmur. 9. Hypertension. 10. Dysphagia, status post esophageal stricture dilatation. 11. History of aspiration pneumonia. Plan . Updated 12/24/20 Continue supplemental oxygen to keep oxygen saturations greater than 92%, currently on 5 liters NC NEBS Continue ABX: doxy and zoysn S/P right thoracentesis 0n 12/23/20, with 500 cc fluid removed -- culture negative, pathology neg Follow cardiology recs-- preserved EF Follow GI recs DVT/GI PPX: lovenox D/W RN PLAN: 12/23/20 1. Case discussed with interventional radiologist, will proceed with a thoracentesis. Risks, benefits and alternatives reviewed with the patient. She consented. 2. Empiric antibiotics. 3. Nebulized treatments. 4. Oxygen supplementation. 5. Deep venous thrombosis prophylaxis. 6. PPI. 7. Speech evaluation. 8. Cardiology consult, already performed. JONNY ALEX MD Dec 24, 2020 08:33
--- NOTE | 2020-12-24 08:37 | PDOC ---
[employer] PROGRESS NOTE Date of Service DOS: DATE: 12/24/20 TIME: 08:36 Chief Complaint Chief Complaint A/P: Aspiration pneumonia ACUTE dense consolidative infiltrate with bronchiectasis involving the medial and lateral segments of the right middle lobe. HX Throat CANCER THROAT CA hx post radiation and chemotherapy WITH STRICTURE ACUTE HYPOXIC Respiratory failure BREAST CA, HX aneurysmal dilatation of the ascending aorta measuring up to 5.2 cm in greatest caliber. No intimal flap or dissection is seen ADMITTED BLOOD CULTURE PULM CONSULT ID CONSULT BLOOD CULTURE, SPUTUM CULTURE Emperic iv zyvox, cefepime q 12 hrs dvt prophylaxis O2 SUPPORT PROGNOSIS GUARDED CARDIOLOGY CONSULT ECHO History of Present Illness History of Present Illness Ms Salas is a 70 year old female with history of hypertension, aspiration pneumonia, esophageal strictures who presents to the ED complaining of shortness of breath that began after she took a nap today. and thinks she aspirated states she has had aspiration pneumonia from esophageal strictures before.states this feels similar to the last time she had aspiration pneumonia. no fever. she is a former smoker on CTA OF CHEST .dense consolidative infiltrate with bronchiectasis involving the medial and lateral segments of the right middle lobe. HX Throat CANCER WITH STRICTURE // ACUTE HYPOXIC Respiratory failure DUE to aspiration pneumonia, pulm and ID consulted, will start iv cefixime, zyvox pending ID consult, npo, ST TO SEE has know hx aspiration pneumonia hx aneurysmal dilatation of the ascending aorta measuring up to 5.2 cm in greatest caliber. No intimal flap or dissection is seen 12/23: Thoracentesis today. Still coughing up quite a bit of sputum. Seen by ID switch from cefepime to Zosyn and doxycycline as well as Zyvox. Afebrile. She is pretty sure she is aspirating. GI evaluation previously been seen by Dr. Ivey for an esophageal dilation x3. K3.2, mag 1.8. Feeling much less short of breath after thoracentesis. She is anxious to be discharged but I have advised her she still on IV antibiotics and requires 6- minute walk to assess how much oxygen she will need and likely can transition to p.o. antibiotics in the next 24 hours. She also needs speech evaluation for her chronic aspiration as well as GI recommendations. Vitals/I&O Vitals/I&O: Vital Signs Date Time Temp Pulse Resp B/P (MAP) Pulse Ox O2 Delivery O2 Flow Rate FiO2 12/24/20 07:23 92 Nasal Cannula 5.0 12/24/20 07:00 97.4 74 20 131/82 (98) 97.4 I & O 12/23/20 12/23/20 12/24/20 15:00 23:00 07:00 Intake Total 300 ml 1750 ml 200 ml Output Total 550 ml Balance -250 ml 1750 ml 200 ml Physical Exam General: Alert, Oriented X3, Cooperative, No acute distress Heart: Regular rate, Other (3/6 systolic murmur ) Abdomen: Soft Extremities: No edema, Normal pulses Skin: No significant lesion Labs Labs: Laboratory Tests Test 12/23/20 14:15 12/23/20 14:45 Prothrombin Time 14.2 SEC (11.7-14.0) Prothromb Time International Ratio 1.1 (0.8-1.1) Body Fluid pH 7.48 Assessment and Plan Assessmemt and Plan Problems Medical Problems: (1) Aspiration pneumonia Status: Acute (2) Respiratory failure Status: Acute Comment Review of Relevant I have reviewed the following items elvira (where applicable) has been applied. Medications: Current Medications Medications (Trade) Dose Ordered Sig/Nora Route PRN Reason Start Time Stop Time Status Last Admin Dose Admin Amlodipine Besylate (Norvasc) 10 mg HS PO 12/23/20 21:00 12/23/20 20:46 Levothyroxine Sodium (Synthroid) 100 mcg HS PO 12/23/20 21:00 12/23/20 20:46 Pantoprazole Sodium (Protonix) 40 mg HS PO 12/23/20 21:00 12/23/20 20:46 Piperacillin Sod/ Tazobactam Sod 3.375 gm/Sodium Chloride 50 ml @ 100 mls/hr Q6HRS IV 12/23/20 12:00 12/24/20 05:13 Doxycycline Hyclate (Vibra-Tab) 100 mg BID PO 12/23/20 12:00 12/23/20 20:47 Potassium Chloride/Water 100 ml @ 100 mls/hr Q1H IV 12/23/20 12:00 12/23/20 15:59 DC 12/23/20 18:02 Magnesium Sulfate 50 ml @ 25 mls/hr 1X ONCE IV 12/23/20 17:00 12/23/20 18:59 DC 12/23/20 20:01 Justifications for Admission Other Justification aspiration pneumonia FREDDIE MI MD Dec 24, 2020 08:37
[2020-12-24] MEDS ORDERED: CYANOCOBALAMIN (VITAMIN B-12) 1,000 MCG/ML VIAL. IM ONE (08:45)
[2020-12-24 09:26] LABS: CALCIUM 7.7 mg/dL (8.5-10.1); GFR 54.7; POTASSIUM 4.2 mmol/L (3.5-5.1)
--- NOTE | 2020-12-24 09:44 | PDOC ---
Date of Service: DATE: 12/24/20 TIME: 09:38 Subjective: Subjective: Breathing better. No swallowing issues today - ate breakfast without issue. Objective: Vital Signs: Vital Signs Date Time Temp Pulse Resp B/P (MAP) Pulse Ox O2 Delivery O2 Flow Rate FiO2 12/24/20 07:23 92 Nasal Cannula 5.0 12/24/20 07:00 97.4 74 20 131/82 (98) 97.4 Labs: Laboratory Tests Test 12/23/20 14:15 12/23/20 14:45 12/24/20 09:10 Prothrombin Time 14.2 SEC Prothromb Time International Ratio 1.1 Body Fluid pH 7.48 Sodium Level 143 mmol/L Potassium Level 4.2 mmol/L Chloride Level 108 mmol/L Carbon Dioxide Level 26 mmol/L Anion Gap 9 Blood Urea Nitrogen 5 mg/dL Creatinine 1.0 mg/dL Estimated GFR (Cockcroft-Gault) 54.7 Glucose Level 140 mg/dL Calcium Level 7.7 mg/dL GRAM STAIN EVALUATION Final Final GRAM POSITIVE COCCI:MANY SQUAMOUS EPI CELL:FEW PMN (WBCs):MANY Unless otherwise specified, Testing Performed by: [address] [address] For Inquires, the Physician may contact the Microbiology department at [phone] RESPIRATORY CULTURE Preliminary Preliminary MODERATE Mixed upper respiratory bj on 12/24/20 at 0839 Unless otherwise specified, Testing Performed by: [address] [address] For Inquires, the Physician may contact the Microbiology department at [phone] Imaging: Echo <Conclusion> The left ventricular systolic function is normal and the ejection fraction is within normal range. The Ejection Fraction is 55-60%. There is normal LV segmental wall motion. Calculated aortic valve area is 1.15 cm2 with maximum pressure gradient of 54 mmHg and mean pressure gradient of 32 mmHg. Doppler and color-flow analysis revealed moderate aortic stenosis. Doppler and Color Flow revealed mild tricuspid regurgitation with an estimated PAP of 60 mmHg. There is moderate pulmonary hypertension. The ascending aorta is mildly dilated measuring 4.1 cm. 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 Currently not an ideal EGD candidate. Treat pulm issues. Continue PPI. Justicifation of Admission Dx: Justifications for Admission: Justification of Admission Dx: Yes MARIELY MCKEON Dec 24, 2020 09:43
[2020-12-24] MEDS: DOXYCYCLINE HYCLATE 100 MG TABLET PO SCH ×2 (09:45→21:22)
--- NOTE | 2020-12-24 10:48 | NUR ---
SS following up with discharge planning. SS reviewed pt chart and discussed with pt RN. Pt is currently requiring oxygen at five liters nasal canula. Pt has no home oxygen. Pt on IV Zosyn. Pt had Thoracentesis on 12/23/2020. PT/OT recommended home independent. SS will continue to follow for discharge planning.
[2020-12-24 10:52] VITALS: BP 121/73
--- NOTE | 2020-12-24 12:38 | PDOC ---
CARDIO Progress Notes Date and Time Date of Service 12/24/2020 Time of Evaluation 1215 Subjective Subjective: No Chest Pain, No shortness of breath, No Palpitations Vitals Vitals Vital Signs Date Time Temp Pulse Resp B/P (MAP) Pulse Ox O2 Delivery O2 Flow Rate FiO2 12/24/20 11:20 93 Nasal Cannula 5.0 12/24/20 10:52 98.0 80 20 121/73 (89) 98.0 Weight Weight [ ] Input and Output Intake and Output Intake and Output 12/24/20 07:00 Intake Total 2250 ml Output Total 550 ml Balance 1700 ml Intake Oral 350 ml IV Total 1900 ml Output Chest Tube Drainage Total 550 ml # Voids 4 # Bowel Movements 1 Laboratory Labs Laboratory Tests Test 12/23/20 14:15 12/23/20 14:45 12/24/20 09:10 Prothrombin Time 14.2 SEC (11.7-14.0) Prothromb Time International Ratio 1.1 (0.8-1.1) Body Fluid pH 7.48 Sodium Level 143 mmol/L (136-145) Potassium Level 4.2 mmol/L (3.5-5.1) Chloride Level 108 mmol/L (98-107) Carbon Dioxide Level 26 mmol/L (21-32) Anion Gap 9 (6-14) Blood Urea Nitrogen 5 mg/dL (7-20) Creatinine 1.0 mg/dL (0.6-1.0) Estimated GFR (Cockcroft-Gault) 54.7 Glucose Level 140 mg/dL (70-99) Calcium Level 7.7 mg/dL (8.5-10.1) Microbiology Micro Microbiology 12/22/20 Gram Stain Evaluation - Final, Resulted 12/22/20 Respiratory Culture - Preliminary, Resulted 12/22/20 Blood Culture - Preliminary, Resulted NO GROWTH AFTER 1 DAY 12/22/20 Urine Culture - Final, Complete Physical Exam HEENT: Neck Supple W Full Motion Chest: Symmetric LUNGS: Other (diminished) Heart: RRR (SR), no jug vein distention Abdomen: Soft N/T Extremities: No Calf Tenderness Neurology: alert, oriented, follow commands Assessment Assessment 1. Dyspnea with bilateral pleural effusion and probable PNA. S/P right side Thoracentesis 550 ml out 2. H/o breast and throat CA; s/p chemo, radiation therapy 3. H/o esophageal stricture, aspiration PNA 4. Ascending aortic aneurysm; measuring up to 5.2 cm per CTA 5. Hypokalemia; resolved 6. Hypertension; controlled 7. Hypothyroidism 8. Moderate with mildly dilated ascending aorta: EF and WM nml Recommendation 1. Start on ASA. Start on statin pending FLP 2. Continue current BP regimen 3. Follow up in office Justicifation of Admission Dx: Justifications for Admission: Justification of Admission Dx: Yes ZI DURAND [employer] Dec 24, 2020 12:38
[2020-12-24 13:03] LABS: CHOLESTEROL/HDL RATIO 2.5
[2020-12-24] MEDS: ASPIRIN ENTERIC COATED 81 MG TABLET.DR. PO SCH (13:55)
[2020-12-24 14:52] VITALS: BP 116/70
--- NOTE | 2020-12-24 16:14 | RAD ---
Ultrasound Guided Thoracentesis Indication: Adult female with right pleural effusion. Consent: The procedure was explained in its entirety to the patient or the patients designated repres entative by a member of the treatment team, including a discussion of the risks, benefits and commonl y accepted alternatives to the procedure, as well as the expected consequences of not performing the procedure. Discussion of the risks included, but was not limited to, those that are most frequent an d those that are rare but possibly severe or life-threatening, as well as the possibility of unforese en complications. Sterility: The procedure was performed in its entirety using appropriate elements of sterile techniqu e. Technique and Findings: Following informed consent, the patient was prepped and draped in the usual s terile fashion. Ultrasound interrogation of the area of interest revealed a pleural effusion. Under ultrasound guidance, a 6 moldovan Qqd-X-Yqelufmr catheter was inserted into the pleural space and 550 cc of thin yellow fluid was removed. The catheter was removed and hemostasis was achieved with manua l compression. Chest x-ray was ordered. Complications: No immediate Impression: 1. Ultrasound-guided right thoracentesis as described. Electronically signed by: Bean Louise MD (12/24/2020 4:12 PM) [id number]
--- NOTE | 2020-12-24 16:16 | PATHOLOGY ---
Note [facility] Accession Number: [id number] TESTS RESULT FLAG UNITS REF RANGE LAB Clinician Provided Cytology Information No. of containers..01 Other (Miscellaneous) Source: LEFT PLEURAL DIAGNOSIS: LEFT PLEURAL NEGATIVE FOR MALIGNANT CELLS. REACTIVE MESOTHELIAL CELLS ARE PRESENT. THIS INTERPRETATION INCLUDES EVALUATION OF A CELL BLOCK. Signed out by: 02 Fabian Melo MD, Pathologist NPI- [id number] Performed by: Patti Willingham, Nursing Teacher ([facility]) Gross description: 01 40ML, CLOUDY YELLOW, 1 TP 1 CB /LCS 12/24/2020 0459 Local FLAG LEGEND: L-Low Normal,H-High Normal,LL-Alert Low,HH-Alert High <-Panic Low,>-Panic High,A-Abnormal,AA-Critical Abnormal Performed at: 01 [facility] [address] [place] [address] Christiano Dubois MD, 02 [facility] [address] [place] [address] Fabian Melo MD, Specimen Comment: A courtesy copy of this report has been sent to [phone], [phone] Specimen Comment: [id number] Specimen Comment: Report sent to DR. KEYS,DR LEVINE / DR KENNEDY Specimen Comment: A duplicate report has been generated due to demographic updates. Performed at: 01 [facility] [address], [place], [place] [id number] MD Christiano Dubois MD Phone: [phone]
[2020-12-24] MEDS: IV NORMAL SALINE 1000ML BAG 1,000 ML IV SCH ×2 (17:33→23:24)
[2020-12-24 19:00] VITALS: BP 127/74
[2020-12-24] MEDS: LEVOTHYROXINE 100 MCG TABLET PO SCH (21:22)
[2020-12-24] MEDS: PANTOPRAZOLE 40 MG TABLET.DR. PO SCH (21:22)
[2020-12-24] MEDS: ENOXAPARIN 40 MG/0.4 ML SYRINGE. SQ SCH (21:23)
[2020-12-24 23:10] VITALS: BP 128/71
[2020-12-25 02:26] VITALS: BP 146/90
[2020-12-25] MEDS: IPRATRPIUM/ALBUTEROL 0.5/2.5MG 3 ML NEBU. NEB SCH ×3 (02:30→11:54)
[2020-12-25] MEDS: PIPERACILLIN/TAZOBACTAM 3.375 GM in IV NORMAL SALINE 50ML 50 ML IV SCH (06:13)
[2020-12-25 07:00] VITALS: BP 126/75
--- NOTE | 2020-12-25 08:13 | PDOC ---
[facility] PROGRESS NOTE Date of Service DOS: DATE: 12/25/20 TIME: 08:01 Chief Complaint Chief Complaint A/P: Aspiration pneumonia ACUTE dense consolidative infiltrate with bronchiectasis involving the medial and lateral segments of the right middle lobe. THROAT CA hx post radiation and chemotherapy Esophageal stricture ACUTE HYPOXIC Respiratory failure BREAST CA, HX Aneurysmal dilatation of the ascending aorta measuring up to 5.2 cm in greatest caliber. No intimal flap or dissection is seen ADMITTED: BLOOD CULTURE PULM CONSULT ID CONSULT BLOOD CULTURE, SPUTUM CULTURE Empiric IV zyvox, Cefepime q 12 hrs dvt prophylaxis O2 SUPPORT PROGNOSIS GUARDED CARDIOLOGY CONSULT ECHO History of Present Illness History of Present Illness Ms Salas is a 70 yo F w/ PMHx hypertension, aspiration pneumonia, esophageal strictures who presents to the ED complaining of shortness of breath that began after she took a nap today. and thinks she aspirated states she has had aspiration pneumonia from esophageal strictures before.states this feels similar to the last time she had aspiration pneumonia. no fever. she is a former smoker on CTA OF CHEST .dense consolidative infiltrate with bronchiectasis involving the medial and lateral segments of the right middle lobe. HX Throat CANCER WITH STRICTURE // ACUTE HYPOXIC Respiratory failure DUE to aspiration pneumonia, pulm and ID consulted, will start iv cefixime, zyvox pending ID consult, npo, ST TO SEE has know hx aspiration pneumonia hx aneurysmal dilatation of the ascending aorta measuring up to 5.2 cm in greatest caliber. No intimal flap or dissection is seen 12/23: Thoracentesis today. Still coughing up quite a bit of sputum. Seen by ID switch from cefepime to Zosyn and doxycycline as well as Zyvox. Afebrile. She is pretty sure she is aspirating. GI evaluation previously been seen by Dr. Ivey for an esophageal dilation x3. K3.2, mag 1.8. 12/24: Feeling much less short of breath after thoracentesis. She is anxious to be discharged but I have advised her she still on IV antibiotics and requires 6- minute walk to assess how much oxygen she will need and likely can transition to p.o. antibiotics in the next 24 hours. She also needs speech evaluation for her chronic aspiration as well as GI recommendations. She is very aware of her aspiration. Afebrile. Pain improved. 6-minute walk indicates 1 L/min of oxygen at rest and 3 L/min of oxygen on exertion. Will discharge home with PPI as well as doxycycline and Augmentin for 7 days and follow-up with pulmonology and ENT outpatient as well as GI. Vitals/I&O Vitals/I&O: Vital Signs Date Time Temp Pulse Resp B/P (MAP) Pulse Ox O2 Delivery O2 Flow Rate FiO2 12/25/20 07:44 94 Nasal Cannula 4.0 12/25/20 02:26 98.0 82 18 146/90 (108) 98.0 I & O 12/24/20 12/24/20 12/25/20 15:00 23:00 07:00 Intake Total 600 ml 440 ml Output Total 300 ml Balance 600 ml 140 ml Physical Exam Physical Exam: GENERAL: Alert, oriented x 3 female sitting upright in chair in no acute distress. HEENT: Normocephalic, atraumatic. Anicteric. No thrush. NECK: Supple. LUNGS: Decreased breath sounds at both the lung bases with crackles. No wheezing. HEART: S1, S2, systolic murmur. ABDOMEN: Soft, nontender, nondistended, no rebound or guarding. EXTREMITIES: No edema, no cyanosis. DERMATOLOGIC: Warm, dry, no generalized rash. NEUROLOGIC: Alert, oriented x 3, grossly nonfocal. PSYCHIATRIC: Calm and cooperative. PIV looks clean. General: Alert, Oriented X3, Cooperative, No acute distress Heart: Regular rate, Other (3/6 systolic murmur ) Abdomen: Soft Extremities: No edema, Normal pulses Skin: No significant lesion Labs Labs: Laboratory Tests Test 12/24/20 09:10 Sodium Level 143 mmol/L (136-145) Potassium Level 4.2 mmol/L (3.5-5.1) Chloride Level 108 mmol/L (98-107) Carbon Dioxide Level 26 mmol/L (21-32) Anion Gap 9 (6-14) Blood Urea Nitrogen 5 mg/dL (7-20) Creatinine 1.0 mg/dL (0.6-1.0) Estimated GFR (Cockcroft-Gault) 54.7 Glucose Level 140 mg/dL (70-99) Calcium Level 7.7 mg/dL (8.5-10.1) Triglycerides Level 68 mg/dL (0-150) Cholesterol Level 115 mg/dL (0-200) LDL Cholesterol, Calculated 55 mg/dL (0-100) VLDL Cholesterol, Calculated 14 mg/dL (0-40) Non-HDL Cholesterol Calculated 69 mg/dL (0-129) HDL Cholesterol 46 mg/dL (40-60) Cholesterol/HDL Ratio 2.5 Assessment and Plan Assessmemt and Plan Problems Medical Problems: (1) Aspiration pneumonia Status: Acute (2) Respiratory failure Status: Acute Comment Review of Relevant I have reviewed the following items elvira (where applicable) has been applied. Medications: Current Medications Medications (Trade) Dose Ordered Sig/Nora Route PRN Reason Start Time Stop Time Status Last Admin Dose Admin Cyanocobalamin (Vitamin B-12 Inj) 1,000 mcg 1X ONCE IM 12/24/20 08:45 12/24/20 08:46 DC 12/24/20 09:45 Aspirin (Ecotrin) 81 mg [id number] PO 12/24/20 13:00 12/24/20 13:55 Justifications for Admission Other Justification aspiration pneumonia FREDDIE MI MD Dec 25, 2020 08:13
[2020-12-25] MEDS: ASPIRIN ENTERIC COATED 81 MG TABLET.DR. PO SCH (09:04)
[2020-12-25] MEDS: DOXYCYCLINE HYCLATE 100 MG TABLET PO SCH (09:05)
--- NOTE | 2020-12-25 09:40 | PDOC ---
Infectious Disease Note Subjective: Subjective Patient with out complaints except for epistaxis which has stopped Cough and shortness of breath have improved Remains on nasal 4 L O2 Denies any fever, nausea, vomiting, diarrhea Vital Signs: Vital Signs Vital Signs Date Time Temp Pulse Resp B/P (MAP) Pulse Ox O2 Delivery O2 Flow Rate FiO2 12/25/20 07:44 94 Nasal Cannula 4.0 12/25/20 07:00 98.0 72 22 126/75 (92) 98.0 Physical Exam: PHYSICAL EXAM GENERAL: Alert, oriented x 3 female sitting upright in chair in no acute distress. HEENT: Normocephalic, atraumatic. Anicteric. No thrush. NECK: Supple. LUNGS: Decreased breath sounds at both the lung bases with crackles. No wheezing. HEART: S1, S2, systolic murmur. ABDOMEN: Soft, nontender, nondistended, no rebound or guarding. EXTREMITIES: No edema, no cyanosis. DERMATOLOGIC: Warm, dry, no generalized rash. NEUROLOGIC: Alert, oriented x 3, grossly nonfocal. PSYCHIATRIC: Calm and cooperative. PIV looks clean. Medications: Inpatient Meds: Medications reviewed. Objective: Assessment: 1. Febrile illness. Pattern improved 2. Pneumonia with underlying bronchiectasis. 3. Bilateral pleural effusion. Status post right thoracocentesis, pH 7.48,Bronchitis. Respiratory cultures negative 4. Leukocytosis and lactic acidosis. 5. History of breast cancer, mouth and throat cancer. 5. History of esophageal stenosis, dysphagia, status post EGD in the past. 6. Pyuria urine culture negative 7. Anemia. 8. Hypokalemia. 9. Protein calorie malnutrition. Epistaxis yesterday Plan: Plan of Care Continue Zosyn,doxycycline. Followup labs and cultures. Maintain aspiration precautions Discussed with nursing staff. GREGORIO SUGGS MD Dec 25, 2020 09:40
[2020-12-25 11:04] VITALS: BP 136/75
[2020-12-25] MEDS ORDERED: PANT40TA77 PO (11:18)
[2020-12-25] MEDS ORDERED: AMOX1TAB61 PO (11:18)
[2020-12-25] MEDS ORDERED: DOXY100T PO (11:18)
--- NOTE | 2020-12-25 11:25 | PDOC3 ---
Discharge Summary Visit Information Date of Admission: Dec 22, 2020 Date of Discharge: Dec 25, 2020 Admitting Diagnosis: Aspiration pneumonia Final Diagnosis Problems Medical Problems: (1) Aspiration pneumonia Status: Acute (2) Respiratory failure Status: Acute Brief Hospital Course Allergies Allergies Coded Allergies Type Severity Reaction Last Updated Verified No Known Drug Allergies 12/29/19 No Vital Signs Vital Signs Date Time Temp Pulse Resp B/P (MAP) Pulse Ox O2 Delivery O2 Flow Rate FiO2 12/25/20 11:04 97.8 83 20 136/75 (95) 95 Nasal Cannula 2.0 97.8 Lab Results Laboratory Tests Test 12/23/20 14:15 12/23/20 14:45 12/24/20 09:10 Prothrombin Time 14.2 SEC (11.7-14.0) Prothromb Time International Ratio 1.1 (0.8-1.1) Body Fluid pH 7.48 Sodium Level 143 mmol/L (136-145) Potassium Level 4.2 mmol/L (3.5-5.1) Chloride Level 108 mmol/L (98-107) Carbon Dioxide Level 26 mmol/L (21-32) Anion Gap 9 (6-14) Blood Urea Nitrogen 5 mg/dL (7-20) Creatinine 1.0 mg/dL (0.6-1.0) Estimated GFR (Cockcroft-Gault) 54.7 Glucose Level 140 mg/dL (70-99) Calcium Level 7.7 mg/dL (8.5-10.1) Triglycerides Level 68 mg/dL (0-150) Cholesterol Level 115 mg/dL (0-200) LDL Cholesterol, Calculated 55 mg/dL (0-100) VLDL Cholesterol, Calculated 14 mg/dL (0-40) Non-HDL Cholesterol Calculated 69 mg/dL (0-129) HDL Cholesterol 46 mg/dL (40-60) Cholesterol/HDL Ratio 2.5 Brief Hospital Course Ms Salas is a 70 yo F w/ PMHx hypertension, aspiration pneumonia, esophageal strictures who presents to the ED complaining of shortness of breath that began after she took a nap today. and thinks she aspirated states she has had aspiration pneumonia from esophageal strictures before.states this feels similar to the last time she had aspiration pneumonia. no fever. she is a former smoker on CTA OF CHEST .dense consolidative infiltrate with bronchiectasis involving the medial and lateral segments of the right middle lobe. HX Throat CANCER WITH STRICTURE // ACUTE HYPOXIC Respiratory failure DUE to aspiration pneumonia, pulm and ID consulted, will start iv cefixime, zyvox pending ID consult, npo, ST TO SEE has know hx aspiration pneumonia hx aneurysmal dilatation of the ascending aorta measuring up to 5.2 cm in greatest caliber. No intimal flap or dissection is seen 12/23: Thoracentesis today. Still coughing up quite a bit of sputum. Seen by ID switch from cefepime to Zosyn and doxycycline as well as Zyvox. Afebrile. She is pretty sure she is aspirating. GI evaluation previously been seen by Dr. Ivey for an esophageal dilation x3. K3.2, mag 1.8. 12/24: Feeling much less short of breath after thoracentesis. She is anxious to be discharged but I have advised her she still on IV antibiotics and requires 6- minute walk to assess how much oxygen she will need and likely can transition to p.o. antibiotics in the next 24 hours. She also needs speech evaluation for her chronic aspiration as well as GI recommendations. She is very aware of her aspiration. Afebrile. Pain improved. 6-minute walk indicates 1 L/min of oxygen at rest and 3 L/min of oxygen on exertion. Will discharge home with PPI as well as doxycycline and Augmentin for 7 days and follow-up with pulmonology and ENT outpatient as well as GI. Left pleural fluid negative for malignant cells Echocardiogram with normal LV wall motion normal systolic function EF 55 to 60% Aortic valve 1.15 cm with max pressure gradient 54 mmHg and mean pressure gradient 32 mmHg consistent with moderate aortic stenosis Also tricuspid regurgitation with estimated PAP of 60 mmHg indicating moderate pulmonary hypertension and ascending aorta mildly dilated to 4.1 cm Problem list: Aspiration pneumonia ACUTE dense consolidative infiltrate with bronchiectasis involving the medial and lateral segments of the right middle lobe. THROAT CA hx post radiation and chemotherapy Esophageal stricture ACUTE HYPOXIC Respiratory failure BREAST CA, HX Aneurysmal dilatation of the ascending aorta measuring up to 5.2 cm in greatest caliber. No intimal flap or dissection is seen CARDIOLOGY, pulmonology, infectious disease, gastroenterology CONSULTs Greater than 30 minutes spent on d/c home with self care. Discharge Information Condition at Discharge: Improved Follow Up: Weeks (1) Disposition/Orders: D/C to Home Scheduled Amlodipine Besylate (Amlodipine Besylate) 10 Mg Tablet, 10 MG PO DAILY for bp, (Reported) Entered as Reported by: KELLY SILVA on 09/01/19 1012 Last Action: Continued on 12/22/201839 by JAIRO LEVINE MD Amoxicillin/Potassium Clav (Augmentin 875-125 Tablet) 1 Each Tablet, 1 TAB PO BID for Aspiration pneumonia for 7 Days, #14 Ref 0 Prescribed by: FREDDIE MI MD on 12/25/20 1118 Doxycycline Hyclate (Doxycycline Hyclate) 100 Mg Tablet, 100 MG PO BID for Aspiration pneumonia for 7 Days, #14 Prescribed by: FREDDIE MI MD on 12/25/20 1118 Levothyroxine Sodium (Levothyroxine Sodium) 75 Mcg Tablet, 75 MCG PO DAILYAC for THYROID SUPPLEMENT, #30 Ref 0 (Reported) Entered as Reported by: KELLY SILVA on 09/01/19 1012 Last Action: Continued on 12/22/201839 by JAIRO LEVINE MD Omeprazole (Omeprazole) 40 Mg Capsule.dr, 40 MG PO DAILY for gerd, (Reported) Entered as Reported by: KELLY SILVA on 09/01/19 1012 Last Action: Converted on 12/22/201839 by JAIRO LEVINE MD Pantoprazole Sodium (Pantoprazole Sodium ) 40 Mg Tablet.dr, 40 MG PO HS for GERD/Pulm fibrosis for 30 Days, #30 Ref 2 Prescribed by: FREDDIE MI MD on 12/25/20 1118 Justicifation of Admission Dx: Justifications for Admission: Justification of Admission Dx: Yes FREDDIE MI MD Dec 25, 2020 11:25
--- NOTE | 2020-12-25 16:03 | PDOC ---
PULMONARY PROGRESS NOTES DATE: 12/25/20 TIME: 15:58 Subjective Pt. is resting on 2 liters NC no SOA or Cough planned to DC today Vitals Vital Signs Date Time Temp Pulse Resp B/P (MAP) Pulse Ox O2 Delivery O2 Flow Rate FiO2 12/25/20 11:04 97.8 83 20 136/75 (95) 95 Nasal Cannula 2.0 97.8 ROS: No Nausea, No Chest Pain, No Abdominal Pain, No Increase Cough General: Alert, Oriented X4 Lungs: Clear Cardiovascular: S2 Abdomen: Soft Neuro Exam: Alert Labs Laboratory Tests Test 12/24/20 09:10 Sodium Level 143 mmol/L (136-145) Potassium Level 4.2 mmol/L (3.5-5.1) Chloride Level 108 mmol/L (98-107) Carbon Dioxide Level 26 mmol/L (21-32) Anion Gap 9 (6-14) Blood Urea Nitrogen 5 mg/dL (7-20) Creatinine 1.0 mg/dL (0.6-1.0) Estimated GFR (Cockcroft-Gault) 54.7 Glucose Level 140 mg/dL (70-99) Calcium Level 7.7 mg/dL (8.5-10.1) Triglycerides Level 68 mg/dL (0-150) Cholesterol Level 115 mg/dL (0-200) LDL Cholesterol, Calculated 55 mg/dL (0-100) VLDL Cholesterol, Calculated 14 mg/dL (0-40) Non-HDL Cholesterol Calculated 69 mg/dL (0-129) HDL Cholesterol 46 mg/dL (40-60) Cholesterol/HDL Ratio 2.5 Medications Active Scripts Medications Dose Route/Sig Max Daily Dose Days Date Category Levothyroxine Sodium 75 Mcg Tablet 75 Mcg PO DAILYAC 09/01/19 Reported Amlodipine Besylate 10 Mg Tablet 10 Mg PO DAILY 09/01/19 Reported Omeprazole 40 Mg Capsule.dr 40 Mg PO DAILY 09/01/19 Reported Impression . IMPRESSION: 1. Acute hypoxemic respiratory failure, multifactorial-- improved 2. Suspect pneumonia complicated with parapneumonic effusion. 3. Bilateral pleural effusion, right greater than left. Rule out possibility of malignant effusion-- S/P thoracentesis 12/23/20 4. History of breast cancer in 2006 status post lumpectomy, chemoradiation. 5. History of throat cancer, epiglottic involvement, status post chemoradiation in 1993. 6. Chronic obstructive pulmonary disease, unknown FEV1. 7. Tobacco dependence in remission. 8. Significant grade 2/6 systolic ejection murmur. 9. Hypertension. 10. Dysphagia, status post esophageal stricture dilatation. 11. History of aspiration pneumonia. Plan . Updated 12/25/20 Continue supplemental oxygen to keep oxygen saturations greater than 92%, currently on 2 liters NC Planned to Dc on home oxygen NEBS Follow ID recs Continue ABX: transition to po for discharge S/P right thoracentesis 0n 12/23/20, with 500 cc fluid removed -- culture negative, pathology neg Follow cardiology recs-- preserved EF Follow GI recs DVT/GI PPX: lovenox D/W RN Ok to discharge today, pt. given follow up appointment in office for Sunday12/29/20 at 1pm Updated 12/24/20 Continue supplemental oxygen to keep oxygen saturations greater than 92%, currently on 5 liters NC NEBS Continue ABX: doxy and zoysn S/P right thoracentesis 0n 12/23/20, with 500 cc fluid removed -- culture negative, pathology neg Follow cardiology recs-- preserved EF Follow GI recs DVT/GI PPX: lovenox D/W RN PLAN: 12/23/20 1. Case discussed with interventional radiologist, will proceed with a thoracentesis. Risks, benefits and alternatives reviewed with the patient. She consented. 2. Empiric antibiotics. 3. Nebulized treatments. 4. Oxygen supplementation. 5. Deep venous thrombosis prophylaxis. 6. PPI. 7. Speech evaluation. 8. Cardiology consult, already performed. JONNY ALEX MD Dec 25, 2020 16:03
--- NOTE | 2020-12-25 16:24 | NUR ---
Discharge Note: RAOUL VICENTE Discharge instructions and discharge home medications reviewed with Patient and a copy given. All questions have been answered and understanding verbalized. The following instructions and handouts were given: DISCHARGE INSTRUCTIONS, ESCRIBED PRESCRIPTION INSTRUCTIONS, FOLLOW UP APPOINTMENT Discontinued lines and drains: Peripheral IV intact. Patient discharged to Home or Self Care with Family Member via Wheelchair
--- NOTE | 2020-12-25 16:27 | NUR ---
Discharged with oxygen tank 1LNC at rest 2LNC with activity. Patient instructed to call oxygen company when she arrives home.
== END 2020-12-25 16:15 | disposition home or self-care (01) | DRG 177 ==
LOC: ER 14:17 → ED HOLD 15:27 → 2 NORTH 19:29
PROVIDERS: ADMIT Family Medicine; ATTEND Family Medicine
PROC: 0W993ZZ Drainage of Right Pleural Cavity, Percutaneous Approach (ICD-10-PCS; principal; 2020-12-23)
DX: J69.0 Pneumonitis due to inhalation of food and vomit (principal); J96.01 Acute respiratory failure with hypoxia; E46 Unspecified protein-calorie malnutrition; E87.2 Acidosis; J44.0 Chronic obstructive pulmonary disease with (acute) lower respiratory infection; J90 Pleural effusion, not elsewhere classified; J98.11 Atelectasis; C14.0 Malignant neoplasm of pharynx, unspecified; C50.919 Malignant neoplasm of unspecified site of unspecified female breast; D64.9 Anemia, unspecified; E03.9 Hypothyroidism, unspecified; E78.5 Hyperlipidemia, unspecified; E87.6 Hypokalemia; F17.201 Nicotine dependence, unspecified, in remission; F32.9 Major depressive disorder, single episode, unspecified; I07.1 Rheumatic tricuspid insufficiency; I10 Essential (primary) hypertension; I27.20 Pulmonary hypertension, unspecified; I35.0 Nonrheumatic aortic (valve) stenosis; I71.2 Thoracic aortic aneurysm, without rupture; I71.4 Abdominal aortic aneurysm, without rupture; K22.2 Esophageal obstruction; R04.0 Epistaxis; Z51.5 Encounter for palliative care; Z82.49 Family history of ischemic heart disease and other diseases of the circulatory system; Z82.5 Family history of asthma and other chronic lower respiratory diseases; Z85.01 Personal history of malignant neoplasm of esophagus; Z85.3 Personal history of malignant neoplasm of breast; Z85.819 Personal history of malignant neoplasm of unspecified site of lip, oral cavity, and pharynx; Z86.16 Personal history of COVID-19; Z87.01 Personal history of pneumonia (recurrent); Z92.21 Personal history of antineoplastic chemotherapy; Z92.3 Personal history of irradiation; K21.9 Gastro-esophageal reflux disease without esophagitis; M19.90 Unspecified osteoarthritis, unspecified site; Z68.24 Body mass index [BMI] 24.0-24.9, adult
CPT/HCPCS: 32555; 36415; 71045; 71275; 80048; 80053; 80061; 81001; 82553; 82607; 83605; 83615; 83735; 83880; 83986; 84145; 84157; 84484; 85025; 85610; 87040; 87070; 87071; 87075; 87086; 87205; 87449; 93005; 93306; 94618; 94640; 94760; 96365; 96366; J0692; J1650; J1956; J2020; J2543; J3420; J3475; J3480; J7030; Q9967; 92610-GN; 99285-25; G0378

== ENCOUNTER 2021-11-26 07:49 | Inpatient (IN) | payer MEDICARE ==
[~2021-11-26] VITALS: Ht 167.6 cm; Wt 65.8 kg
[~2021-11-26 07:49] MED LIST changes: +AMOX1TAB61 PO; +DOXY100T PO; +PANT40TA77 PO
[2021-11-26] MEDS ORDERED: methylPREDNISolone SOD SUCC PF 125 MG/2 ML VIAL. IV ONE ×2 (08:15)
[2021-11-26] MEDS ORDERED: IPRATRPIUM/ALBUTEROL 0.5/2.5MG 3 ML NEBU. NEB ONE ×2 (08:15)
--- NOTE | 2021-11-26 08:18 | PHYS DOC ---
Past Medical History Past Medical History: Hypertension, Pneumonia, Other Additional Past Medical Histor: HEART MURMUR, BREAST CA, THROAT CA Past Surgical History: Other Additional Past Surgical Histo: LEFT BREAST LUMPECTOMY Smoking Status: Former Smoker Alcohol Use: None Adult General Chief Complaint Chief Complaint: COUGH HPI HPI Patient is a 71 year old female presenting to the emergency department for evaluation of cough hemoptysis and dyspnea that has been worsening over the past several days. From what she told me she says that she gets pneumonia frequently as she has aspirations due to radiation from esophageal cancer in the s. She says that her cough has been productive of bloody sputum that has been mostly drops of blood but not a large amount of hemoptysis. She had a room air oxygen saturation of 73% and asked if she is supposed to wear oxygen at home and she says she has it available to her but she never wears it and I asked if she is supposed to wear it and she said no. Patient denies being on antibiotics or steroids recently. She denies any measured fevers. She appears dyspneic but nontoxic. Review of Systems Review of Systems Constitutional: Denies fever or chills [] Eyes: Denies change in visual acuity, redness, or eye pain [] HENT: Denies nasal congestion or sore throat [] Respiratory: + cough, shortness of breath [] Cardiovascular: No additional information not addressed in HPI [] GI: Denies abdominal pain, nausea, vomiting, bloody stools or diarrhea [] : Denies dysuria or hematuria [] Musculoskeletal: Denies back pain or joint pain [] Integument: Denies rash or skin lesions [] Neurologic: Denies headache, focal weakness or sensory changes [] All other systems were reviewed and found to be within normal limits, except as documented in this note. Current Medications Current Medications Current Medications Medications (Trade) Dose Ordered Sig/Nora Start Time Stop Time Status Last Admin Dose Admin Albuterol/ Ipratropium (Duoneb) 3 ml 1X ONCE 11/26/21 08:15 11/26/21 08:16 UNV Azithromycin (Zithromax) 500 mg 1X ONCE 11/26/21 09:30 11/26/21 09:31 DC 11/26/21 09:45 500 MG Ceftriaxone Sodium (Rocephin) 1 gm 1X ONCE 5/28/22 09:30 11/26/21 09:31 DC 11/26/21 09:45 1 GM Levothyroxine Sodium (Synthroid) 75 mcg DAILYAC 11/26/21 10:00 Methylprednisolone Sodium Succinate (SOLU-Medrol 125MG VIAL) 125 mg 1X ONCE 11/26/21 08:15 11/26/21 08:16 UNV Potassium Chloride (Klor-Con) 40 meq 1X ONCE 11/26/21 09:30 11/26/21 09:31 DC 11/26/21 09:45 40 MEQ Allergies Allergies Allergies Coded Allergies Type Severity Reaction Last Updated Verified No Known Drug Allergies 12/29/19 No Physical Exam Physical Exam Constitutional: Chronically ill-appearing female in mild respiratory distress. HENT: Normocephalic, atraumatic, bilateral external ears normal, oropharynx moist, no oral exudates, nose normal. [] Eyes: PERRLA, EOMI, conjunctiva normal, no discharge. [] Neck: Normal range of motion, no tenderness, supple, no stridor. [] Cardiovascular:Heart rate regular rhythm, no murmur [] Lungs & Thorax: Bilateral breath sounds coarse and diminished with inspiratory and expiratory wheezing noted Abdomen: Bowel sounds normal, soft, no tenderness, no masses, no pulsatile masses. [] Skin: Warm, dry, no erythema, no rash. [] Back: No tenderness, no CVA tenderness. [] Extremities: No tenderness, no cyanosis, no clubbing, ROM intact, no edema. [] Neurologic: Alert and oriented X 3, normal motor function, normal sensory function, no focal deficits noted. [] Current Patient Data Vital Signs Vital Signs Date Time Temp Pulse Resp B/P (MAP) Pulse Ox O2 Delivery O2 Flow Rate FiO2 11/26/21 10:00 84 24 111/76 (88) 85 Nasal Cannula 3.0 11/26/21 08:05 98.8 98.8 Lab Values Laboratory Tests Test 11/26/21 08:05 11/26/21 08:31 11/26/21 08:59 O2 Saturation 92 % (92-99) Arterial Blood pH 7.43 (7.35-7.45) Arterial Blood pCO2 at Patient Temp 37 mmHg (35-46) Arterial Blood pO2 at Patient Temp 65 mmHg (65-108) Arterial Blood HCO3 24 mmol/L (21-28) Arterial Blood Base Excess -1 mmol/L (-3-3) Oxyhemoglobin 91.5 % Methemoglobin 0.4 % (0.0-1.9) Carbon Monoxide, Quantitative 0.2 % (0.0-1.9) FiO2 3l/nc White Blood Count 11.7 x10^3/uL (4.0-11.0) H Red Blood Count 4.46 x10^6/uL (3.50-5.40) Hemoglobin 12.7 g/dL (12.0-15.5) Hematocrit 38.9 % (36.0-47.0) Mean Corpuscular Volume 87 fL (79-100) Mean Corpuscular Hemoglobin 28 pg (25-35) Mean Corpuscular Hemoglobin Concent 33 g/dL (31-37) Red Cell Distribution Width 16.3 % (11.5-14.5) H Platelet Count 303 x10^3/uL (140-400) Neutrophils (%) (Auto) 80 % (31-73) H Lymphocytes (%) (Auto) 10 % (24-48) L Monocytes (%) (Auto) 8 % (0-9) Eosinophils (%) (Auto) 2 % (0-3) Basophils (%) (Auto) 1 % (0-3) Neutrophils # (Auto) 9.3 x10^3/uL (1.8-7.7) H Lymphocytes # (Auto) 1.2 x10^3/uL (1.0-4.8) Monocytes # (Auto) 0.9 x10^3/uL (0.0-1.1) Eosinophils # (Auto) 0.2 x10^3/uL (0.0-0.7) Basophils # (Auto) 0.1 x10^3/uL (0.0-0.2) Prothrombin Time 13.5 SEC (11.7-14.0) Prothrombin Time INR 1.1 (0.8-1.1) Activated Partial Thromboplast Time 31 SEC (24-38) D-Dimer (Marisol) 0.39 ug/mlFEU (0.00-0.50) Sodium Level 138 mmol/L (136-145) Potassium Level 3.1 mmol/L (3.5-5.1) L Chloride Level 103 mmol/L (98-107) Carbon Dioxide Level 25 mmol/L (21-32) Anion Gap 10 (6-14) Blood Urea Nitrogen 12 mg/dL (7-20) Creatinine 1.1 mg/dL (0.6-1.0) H Estimated GFR (Cockcroft-Gault) 48.8 BUN/Creatinine Ratio 11 (6-20) Glucose Level 210 mg/dL (70-99) H Calcium Level 8.3 mg/dL (8.5-10.1) L Total Bilirubin 0.7 mg/dL (0.2-1.0) Aspartate Amino Transferase (AST) 12 U/L (15-37) L Alanine Aminotransferase (ALT) < 6 U/L (14-59) L Alkaline Phosphatase 108 U/L (46-116) Troponin I High Sensitivity 10 ng/L (4-50) CP-Whx-E-Type Natriuretic Peptide 140 pg/mL (0-124) H Total Protein 7.5 g/dL (6.4-8.2) Albumin 3.0 g/dL (3.4-5.0) L Albumin/Globulin Ratio 0.7 (1.0-1.7) L Influenza Type A Antigen Negative (NEGATIVE) Influenza Type B Antigen Negative (NEGATIVE) SARS-CoV-2 Antigen (Rapid) Negative (NEGATIVE) Lactic Acid Level 2.2 mmol/L (0.4-2.0) H Laboratory Tests 11/26/21 08:31 Laboratory Tests 11/26/21 08:31 EKG EKG Sinus rhythm at 94 bpm with normal axis no deviation no ST elevation or depression and normal T waves.[] Radiology/Procedures Radiology/Procedures [] Course & Med Decision Making Course & Med Decision Making Patient with cough and hemoptysis possibly due to bronchitis or pneumonia. I will check labs and imaging treat her symptoms and reassess. Patient continues to require at least 4 L of oxygen to maintain her saturations in the low 90s. Patient has been started on antibiotics for possible pneumonia. She does meet sepsis criteria given the leukocytosis and tachycardia but she does not meet severe sepsis criteria given her normal blood pressure and lactate. Patient will be admitted in improved condition to the telemetry floor. Dr. Tucker agreed to accept patient. Emily Disclaimer Dragon Disclaimer This electronic medical record was generated, in whole or in part, using a voice recognition dictation system. Departure Departure Impression: Primary Impression: Respiratory failure Additional Impressions: Pneumonia Hypokalemia Sepsis Disposition: 09 ADMITTED INPATIENT Admitting Physician: JAY (Riffel) Condition: IMPROVED Referrals: NICKOLAS MCPHERSON (PCP) Problem Qualifiers Primary Impression: Respiratory failure Chronicity: acute on chronic Respiratory failure complication: hypoxia Qualified Codes: J96.21 - Acute and chronic respiratory failure with hypoxia Additional Impressions: Pneumonia Pneumonia type: due to unspecified organism Laterality: unspecified laterality Lung location: unspecified part of lung Qualified Codes: J18.9 - Pneumonia, unspecified organism Sepsis Sepsis type: sepsis due to unspecified organism Sepsis acute organ dysfunction status: without acute organ dysfunction Qualified Codes: A41.9 - Sepsis, unspecified organism SOHAM GOINS DO November 26, 2021 08:17
[2021-11-26 08:44] LABS: BASO # 0.1 x10^3/uL (0.0-0.2); BASO % 1 % (0-3); EOS # 0.2 x10^3/uL (0.0-0.7); EOS % 2 % (0-3); HEMATOCRIT 38.9 % (36.0-47.0); HEMOGLOBIN 12.7 g/dL (12.0-15.5); LYMPH # 1.2 x10^3/uL (1.0-4.8); LYMPH % 10 % (24-48); MEAN CORPUSCULAR HEMOGLOBIN 28 pg (25-35); MEAN CORPUSCULAR HGB CONC 33 g/dL (31-37); MEAN CORPUSCULAR VOLUME 87 fL (79-100); MONO # 0.9 x10^3/uL (0.0-1.1); MONO % 8 % (0-9); NEUT # 9.3 x10^3/uL (1.8-7.7); NEUT % 80 % (31-73); PLATELET COUNT 303 x10^3/uL (140-400); RED BLOOD COUNT 4.46 x10^6/uL (3.50-5.40); RED CELL DISTRIBUTION WIDTH 16.3 % (11.5-14.5); WHITE BLOOD COUNT 11.7 x10^3/uL (4.0-11.0)
[2021-11-26 08:53] LABS: PROTHROMBIN TIME PATIENT 13.5 SEC (11.7-14.0)
[2021-11-26 08:54] LABS: ANION GAP 10 (6-14); BLOOD UREA NITROGEN 12 mg/dL (7-20); BUN/CREATININE RATIO 11 (6-20); CALCIUM 8.3 mg/dL (8.5-10.1); CARBON DIOXIDE 25 mmol/L (21-32); CHLORIDE 103 mmol/L (98-107); CREATININE 1.1 mg/dL (0.6-1.0); GFR 48.8; GLUCOSE 210 mg/dL (70-99); POTASSIUM 3.1 mmol/L (3.5-5.1); SODIUM 138 mmol/L (136-145)
[2021-11-26 09:00] LABS: ALBUMIN/GLOBULIN RATIO 0.7 (1.0-1.7); ALK PHOS 108 U/L (46-116); ALT (SGPT) < 6 U/L (14-59); AST (SGOT) 12 U/L (15-37); D-DIMER 0.39 ug/mlFEU (0.00-0.50); TOTAL BILIRUBIN 0.7 mg/dL (0.2-1.0); TOTAL PROTEIN 7.5 g/dL (6.4-8.2)
--- NOTE | 2021-11-26 09:08 | RAD ---
AP chest. HISTORY: Hemoptysis AP view was taken of the chest. Comparison is made with an old study from November 2020. Heart is upper n ormal in size. There is atherosclerotic change in the aortic arch. There is arthritis in both shoulde rs. There are mild interstitial changes in the lung bases less prominent than the old study. Mild chr onic interstitial lung disease is possible. Mild acute interstitial infiltrate is possible. IMPRESSION: 1. Mild interstitial changes in the lung bases from chronic interstitial disease or mild acute inters titial infiltrates or edema. Electronically signed by: Jluis Bella MD (11/26/2021 9:06 AM) [id number]
[2021-11-26 09:22] LABS: INFLUENZA A PATIENT NEGATIVE (NEGATIVE); INFLUENZA B PATIENT NEGATIVE (NEGATIVE)
[2021-11-26] MEDS ORDERED: cefTRIAXone IV Push 1 GM VIAL. IVP ONE (09:30)
[2021-11-26] MEDS ORDERED: AZITHROMYCIN 250 MG TABLET. PO ONE (09:30)
[2021-11-26] MEDS ORDERED: POTASSIUM CHLORIDE 20 MEQ TABLET.ER. PO ONE ×2 (09:30→11:00)
[2021-11-26 09:31] LABS: BASE EXCESS COOX -1 mmol/L (-3-3); HCO3 COOX 24 mmol/L (21-28); METHEMOGLOBIN 0.4 % (0.0-1.9); OXYHEMOGLOBIN 91.5 %; PCO2 COOX 37 mmHg (35-46); PO2 COOX 65 mmHg (65-108); SAT O2 COOX 92 % (92-99)
--- NOTE | 2021-11-26 10:13 | PDOC1 ---
History and Physical Date of Admission Date of Admission DATE: 11/26/21 TIME: 10:07 Identification/Chief Complaint Chief Complaint Hemoptysis Source Source: Patient History of Present Illness History of Present Illness Ms Salas is a 70 yo F w/ PMHx throat ca, breast ca, esophagitis, hypertension, aspiration pneumonia, esophageal strictures who presents to the ED complaining of shortness of breath and hypoxia at home.she has a chronic cough but over the last 2 days she has had some blood flecked sputum and now is coughing up bright red blood with clots. She does have recurrent pneumonia and has aspirations due to radiation from esophageal cancer in the . Around 3 AM she had a room air oxygen saturation of 73% and asked if she is supposed to wear oxygen at home and she did feel badly and noted her blood pressure and heart rate were up. Labs with WBC 11.7, Hb 12.7, platelets 303, NA 138, K3.1, BUN 12, CR 1.1, glucose 210, calcium 8.3, bilirubin 0.7, AST 12, ALT less than 6, alkaline phosphatase 108, albumin 3, NT proBNP 140, high-sensitivity troponin is 10, lactic acid is 2.2, rapid influenza and rapid COVID-negative, INR 1.1, D-dimer 0.39, ABG on 3 L nasal cannula 7.4 . Chest radiograph on my interpretation with interstitial opacities bilaterally. Started antibiotics given steroids nebulizer and admitted on telemetry for further care Past Medical History Cardiovascular: HTN, Other Pulmonary: Pneumonia GI: GERD, Other Heme/Onc: Cancer Musculoskeletal: Osteoarthritis Endocrine: Hypothyroidism Past Surgical History Past Surgical History: Other (Breast lumpectomy) Family History Family History: Hypertension Social History Smoke: Quit (1993) ALCOHOL: none Drugs: None Current Medications Current Medications Current Medications Albuterol/ Ipratropium (Duoneb) 3 ml 1X ONCE NEB Last administered on 11/26/21at 09:22; Start 11/26/21 at 08:15; Stop 11/26/21 at 08:22; Status DC Methylprednisolone Sodium Succinate (SOLU-Medrol 125MG VIAL) 125 mg 1X ONCE IV Last administered on 11/26/21at 09:04; Start 11/26/21 at 08:15; Stop 11/26/21 at 08:22; Status DC Albuterol/ Ipratropium (Duoneb) 3 ml 1X ONCE NEB ; Start 11/26/21 at 08:15; Stop 11/26/21 at 08:16; Status UNV Methylprednisolone Sodium Succinate (SOLU-Medrol 125MG VIAL) 125 mg 1X ONCE IV ; Start 11/26/21 at 08:15; Stop 11/26/21 at 08:16; Status UNV Potassium Chloride (Klor-Con) 40 meq 1X ONCE PO Last administered on 11/26/21at 09:45; Start 11/26/21 at 09:30; Stop 11/26/21 at 09:31; Status DC Ceftriaxone Sodium (Rocephin) 1 gm 1X ONCE IVP Last administered on 11/26/21at 09:45; Start 11/26/21 at 09:30; Stop 11/26/21 at 09:31; Status DC Azithromycin (Zithromax) 500 mg 1X ONCE PO Last administered on 11/26/21at 09:45; Start 11/26/21 at 09:30; Stop 11/26/21 at 09:31; Status DC Active Scripts Active Pantoprazole Sodium (Pantoprazole Sodium) 40 Mg Tablet.dr 40 Mg PO HS 30 Days Augmentin 875-125 Tablet (Amoxicillin/Potassium Clav) 1 Each Tablet 1 Tab PO BID 7 Days Doxycycline Hyclate 100 Mg Tablet 100 Mg PO BID 7 Days Reported Levothyroxine Sodium 75 Mcg Tablet 75 Mcg PO DAILYAC Amlodipine Besylate 10 Mg Tablet 10 Mg PO DAILY Omeprazole 40 Mg Capsule.dr 40 Mg PO DAILY Allergies Allergies: Coded Allergies: No Known Drug Allergies (Unverified , 12/29/19) ROS General: YES: Fatigue, Malaise; No: Chills, Night Sweats, Appetite, Other PSYCHOLOGICAL ROS: No: Anxiety, Behavioral Disorder, Concentration difficultie, Decreased libido, Depression, Disorientation, Hallucinations, Hostility, Irritablity, Memory difficulties, Mood Swings, Obsessive thoughts, Physical abuse, Sexual abuse, Sleep disturbances, Suicidal ideation, Other Eyes: No Blurry vision, No Decreased vision, No Double vision, No Dry eyes, No Excessive tearing, No Eye Pain, No Itchy Eyes, No Loss of vision, No Photophobia, No Scotomata, No Uses contacts, No Uses glasses, No Other HEENT: No: Heacaches, Visual Changes, Hearing change, Nasal congestion, Nasal discharge, Oral lesions, Sinus pain, Sore Throat, Epistaxis, Sneezing, Snoring, Tinnitus, Vertigo, Vocal changes, Other ALLERGY AND IMMUNOLOGY: No: Hives, Insect Bite Sensitivity, Itchy/Watery Eyes, Nasal Congestion, Post Nasal Drip, Seasonal Allergies, Other Hematological and Lymphatic: No: Bleeding Problems, Blood Clots, Blood Transfusions, Brusing, Night Sweats, Pallor, Swollen Lymph Nodes, Other ENDOCRINE: No: Breast Changes, Galactorrhea, Hair Pattern Changes, Hot Flashes, Malaise/lethargy, Mood Swings, Palpitations, Polydipsia/polyuria, Skin Changes, Temperature Intolerance, Unexpected Weight Changes, Other Breast: No New/Changing Breast Lumps, No Nipple changes, No Nipple discharge, No Other Respiratory: YES: Hemoptysis; No: Cough, Orthopnea, Pleuritic Pain, Shortness of breath, SOB with excertion, Sputum Changes, Stridor, Tachypnea, Wheezing, Other Cardiovascular: No Chest Pain, No Palpitations, No Orthopnea, No Paroxysmal Noc. Dyspnea, No Edema, No Lt Headedness, No Other Gastrointestinal: No Nausea, No Vomiting, No Abdominal Pain, No Diarrhea, No Constipation, No Melena, No Hematochezia, No Other Genitourinary: No Dysuria, No Frequency, No Incontinence, No Hematuria, No Retention, No Discharge, No Urgency, No Pain, No Flank Pain, No Other, No , No , No , No , No , No , No Musculoskeletal: No Gait Disturbance, No Joint Pain, No Joint Stiffness, No Joint Swelling, No Muscle Pain, No Muscular Weakness, No Pain In:, No Swelling In:, No Other Neurological: No Behavorial Changes, No Bowel/Bladder ControlChng, No Confusion, No Dizziness, No Gait Disturbance, No Headaches, No Impaired Coord/balance, No Memory Loss, No Numbness/Tingling, No Seizures, No Speech Problems, No Tremors, No Visual Changes, No Weakness, No Other Skin: No Dry Skin, No Eczema, No Hair Changes, No Lumps, No Mole Changes, No Mottling, No Nail Changes, No Pruritus, No Rash, No Skin Lesion Changes, No Other, No Acne Physical Exam General: Alert, Oriented X3, Cooperative, moderate distress HEENT: Atraumatic, PERRLA, EOMI, Mucous membr. moist/pink Lungs: Other (Bilateral rhonchi wheezes) Heart: S1S2, RRR, no thrills, no rubs, no gallops, no murmurs Abdomen: Normal bowel sounds, Soft, No tenderness, No hepatosplenomegaly, No masses Rectal Exam: not examined Extremities: No clubbing, No cyanosis, No edema, Normal pulses, No tenderness/swelling Skin: No rashes, No breakdown, No significant lesion Neuro: Normal gait, Normal speech, Strength at 5/5 X4 ext, Normal tone, Sensation intact, Cranial nerves 3-12 NL, Reflexes 2+ Psych/Mental Status: Mental status NL, Mood NL Vitals Vitals Vital Signs Date Time Temp Pulse Resp B/P (MAP) Pulse Ox O2 Delivery O2 Flow Rate FiO2 11/26/21 09:25 90 Nasal Cannula 3.0 11/26/21 08:05 98.8 106 22 131/78 (95) 98.8 Labs Labs Laboratory Tests Test 11/26/21 08:05 11/26/21 08:31 11/26/21 08:59 O2 Saturation 92 % (92-99) Arterial Blood pH 7.43 (7.35-7.45) Arterial Blood pCO2 at Patient Temp 37 mmHg (35-46) Arterial Blood pO2 at Patient Temp 65 mmHg (65-108) Arterial Blood HCO3 24 mmol/L (21-28) Arterial Blood Base Excess -1 mmol/L (-3-3) Oxyhemoglobin 91.5 % Methemoglobin 0.4 % (0.0-1.9) Carbon Monoxide, Quantitative 0.2 % (0.0-1.9) FiO2 3l/nc White Blood Count 11.7 x10^3/uL (4.0-11.0) Red Blood Count 4.46 x10^6/uL (3.50-5.40) Hemoglobin 12.7 g/dL (12.0-15.5) Hematocrit 38.9 % (36.0-47.0) Mean Corpuscular Volume 87 fL (79-100) Mean Corpuscular Hemoglobin 28 pg (25-35) Mean Corpuscular Hemoglobin Concent 33 g/dL (31-37) Red Cell Distribution Width 16.3 % (11.5-14.5) Platelet Count 303 x10^3/uL (140-400) Neutrophils (%) (Auto) 80 % (31-73) Lymphocytes (%) (Auto) 10 % (24-48) Monocytes (%) (Auto) 8 % (0-9) Eosinophils (%) (Auto) 2 % (0-3) Basophils (%) (Auto) 1 % (0-3) Neutrophils # (Auto) 9.3 x10^3/uL (1.8-7.7) Lymphocytes # (Auto) 1.2 x10^3/uL (1.0-4.8) Monocytes # (Auto) 0.9 x10^3/uL (0.0-1.1) Eosinophils # (Auto) 0.2 x10^3/uL (0.0-0.7) Basophils # (Auto) 0.1 x10^3/uL (0.0-0.2) Prothrombin Time 13.5 SEC (11.7-14.0) Prothromb Time International Ratio 1.1 (0.8-1.1) Activated Partial Thromboplast Time 31 SEC (24-38) D-Dimer (Marisol) 0.39 ug/mlFEU (0.00-0.50) Sodium Level 138 mmol/L (136-145) Potassium Level 3.1 mmol/L (3.5-5.1) Chloride Level 103 mmol/L (98-107) Carbon Dioxide Level 25 mmol/L (21-32) Anion Gap 10 (6-14) Blood Urea Nitrogen 12 mg/dL (7-20) Creatinine 1.1 mg/dL (0.6-1.0) Estimated GFR (Cockcroft-Gault) 48.8 BUN/Creatinine Ratio 11 (6-20) Glucose Level 210 mg/dL (70-99) Calcium Level 8.3 mg/dL (8.5-10.1) Total Bilirubin 0.7 mg/dL (0.2-1.0) Aspartate Amino Transf (AST/SGOT) 12 U/L (15-37) Alanine Aminotransferase (ALT/SGPT) < 6 U/L (14-59) Alkaline Phosphatase 108 U/L (46-116) Troponin I High Sensitivity 10 ng/L (4-50) UR-Pyz-G-Type Natriuretic Peptide 140 pg/mL (0-124) Total Protein 7.5 g/dL (6.4-8.2) Albumin 3.0 g/dL (3.4-5.0) Albumin/Globulin Ratio 0.7 (1.0-1.7) Influenza Type A Antigen Negative (NEGATIVE) Influenza Type B Antigen Negative (NEGATIVE) SARS-CoV-2 Antigen (Rapid) Negative (NEGATIVE) Lactic Acid Level 2.2 mmol/L (0.4-2.0) Laboratory Tests Test 11/26/21 08:05 11/26/21 08:31 11/26/21 08:59 O2 Saturation 92 % (92-99) Arterial Blood pH 7.43 (7.35-7.45) Arterial Blood pCO2 at Patient Temp 37 mmHg (35-46) Arterial Blood pO2 at Patient Temp 65 mmHg (65-108) Arterial Blood HCO3 24 mmol/L (21-28) Arterial Blood Base Excess -1 mmol/L (-3-3) Oxyhemoglobin 91.5 % Methemoglobin 0.4 % (0.0-1.9) Carbon Monoxide, Quantitative 0.2 % (0.0-1.9) FiO2 3l/nc White Blood Count 11.7 x10^3/uL (4.0-11.0) Red Blood Count 4.46 x10^6/uL (3.50-5.40) Hemoglobin 12.7 g/dL (12.0-15.5) Hematocrit 38.9 % (36.0-47.0) Mean Corpuscular Volume 87 fL (79-100) Mean Corpuscular Hemoglobin 28 pg (25-35) Mean Corpuscular Hemoglobin Concent 33 g/dL (31-37) Red Cell Distribution Width 16.3 % (11.5-14.5) Platelet Count 303 x10^3/uL (140-400) Neutrophils (%) (Auto) 80 % (31-73) Lymphocytes (%) (Auto) 10 % (24-48) Monocytes (%) (Auto) 8 % (0-9) Eosinophils (%) (Auto) 2 % (0-3) Basophils (%) (Auto) 1 % (0-3) Neutrophils # (Auto) 9.3 x10^3/uL (1.8-7.7) Lymphocytes # (Auto) 1.2 x10^3/uL (1.0-4.8) Monocytes # (Auto) 0.9 x10^3/uL (0.0-1.1) Eosinophils # (Auto) 0.2 x10^3/uL (0.0-0.7) Basophils # (Auto) 0.1 x10^3/uL (0.0-0.2) Prothrombin Time 13.5 SEC (11.7-14.0) Prothromb Time International Ratio 1.1 (0.8-1.1) Activated Partial Thromboplast Time 31 SEC (24-38) D-Dimer (Marisol) 0.39 ug/mlFEU (0.00-0.50) Sodium Level 138 mmol/L (136-145) Potassium Level 3.1 mmol/L (3.5-5.1) Chloride Level 103 mmol/L (98-107) Carbon Dioxide Level 25 mmol/L (21-32) Anion Gap 10 (6-14) Blood Urea Nitrogen 12 mg/dL (7-20) Creatinine 1.1 mg/dL (0.6-1.0) Estimated GFR (Cockcroft-Gault) 48.8 BUN/Creatinine Ratio 11 (6-20) Glucose Level 210 mg/dL (70-99) Calcium Level 8.3 mg/dL (8.5-10.1) Total Bilirubin 0.7 mg/dL (0.2-1.0) Aspartate Amino Transf (AST/SGOT) 12 U/L (15-37) Alanine Aminotransferase (ALT/SGPT) < 6 U/L (14-59) Alkaline Phosphatase 108 U/L (46-116) Troponin I High Sensitivity 10 ng/L (4-50) BG-Ddp-J-Type Natriuretic Peptide 140 pg/mL (0-124) Total Protein 7.5 g/dL (6.4-8.2) Albumin 3.0 g/dL (3.4-5.0) Albumin/Globulin Ratio 0.7 (1.0-1.7) Influenza Type A Antigen Negative (NEGATIVE) Influenza Type B Antigen Negative (NEGATIVE) SARS-CoV-2 Antigen (Rapid) Negative (NEGATIVE) Lactic Acid Level 2.2 mmol/L (0.4-2.0) Images Images PORTABLE CHEST 1V AP chest. HISTORY: Hemoptysis AP view was taken of the chest. Comparison is made with an old study from November 2020. Heart is upper normal in size. There is atherosclerotic change in the aortic arch. There is arthritis in both shoulders. There are mild interstitial changes in the lung bases less prominent than the old study. Mild chronic interstitial lung disease is possible. Mild acute interstitial infiltrate is possible. IMPRESSION: 1. Mild interstitial changes in the lung bases from chronic interstitial disease or mild acute interstitial infiltrates or edema. VTE Prophylaxis Ordered VTE Prophylaxis Devices: Yes VTE Pharmacological Prophylaxi: Yes Assessment/Plan Assessment/Plan Acute hypoxic respiratory failure -due to atypical pneumonia with bronchitis hemoptysis. Will give aggressive nebs steroids consult pulmonology wean O2 as tolerated Hemoptysis -likely related to bronchitis. Bronchitis with atypical Pneumonia -bilateral interstitial pneumonia we will consult pulmonology given hemoptysis and bronchitis with hypoxia clearly patient aspirates. Hx of throat cancer post radiation and chemotherapy Esophageal strictures BREAST CA, HX Hypokalemia - replace, check mag FEN - regular diet PPX - lovenox FULL CODE Dispo - inpatient Justifications for Admission Other Justification aspiration pneumonia FREDDIE MI MD November 26, 2021 10:13
[2021-11-26] MEDS ORDERED: ONDANSETRON PF 4 MG/2 ML VIAL. IVP PRN ×2 (10:15)
[2021-11-26] MEDS ORDERED: fentaNYL PF VIAL 100 MCG/2 ML VIAL IVP PRN (10:15)
[2021-11-26] MEDS ORDERED: ALBUTEROL SULFATE 2.5 MG/3 ML NEBU. NEB PRN (10:15)
[2021-11-26] MEDS ORDERED: guaiFENesin DM 200MG/20MG 10 ML SYRUP PO PRN (10:15)
[2021-11-26] MEDS ORDERED: ACETAMINOPHEN 325 MG TABLET. PO PRN (10:15)
[2021-11-26 11:00] VITALS: BP 146/77
[2021-11-26] MEDS ORDERED: ENOXAPARIN 40 MG/0.4 ML SYRINGE. SQ SCH (11:00)
[2021-11-26] MEDS: BUDESONIDE 0.5 MG/2 ML NEBU. NEB SCH ×2 (11:01→20:40)
[2021-11-26] MEDS: IPRATRPIUM/ALBUTEROL 0.5/2.5MG 3 ML NEBU. NEB SCH ×3 (11:01→20:40)
[2021-11-26] MEDS: LEVOTHYROXINE 75 MCG TABLET PO SCH (13:41)
[2021-11-26 15:00] VITALS: BP 96/65
[2021-11-26] MEDS ORDERED: MAGNESIUM SULFATE 4GM 100 ML IV ONE (16:30)
[2021-11-26] MEDS: methylPREDNISolone SOD SUCC PF 40 MG/ML VIAL. IV SCH ×2 (17:08→21:14)
[2021-11-26] MEDS ORDERED: IV NORMAL SALINE 1000ML BAG 1,000 ML IV ONE (17:45)
[2021-11-26 19:46] VITALS: BP 97/55
[2021-11-26] MEDS: DOXYCYCLINE HYCLATE 100 MG in IV DEXTROSE 5% 100ML 100 ML IV SCH (21:13)
[2021-11-26] MEDS: PANTOPRAZOLE 40 MG TABLET.DR. PO SCH (21:14)
[2021-11-26 23:26] VITALS: BP 99/61
[2021-11-27 03:37] VITALS: BP 106/65
[2021-11-27 03:49] LABS: BASO % 0 % (0-3); EOS % 0 % (0-3); HEMATOCRIT 36.4 % (36.0-47.0); HEMOGLOBIN 11.6 g/dL (12.0-15.5); LYMPH # 0.7 x10^3/uL (1.0-4.8); LYMPH % 3 % (24-48); MEAN CORPUSCULAR HEMOGLOBIN 28 pg (25-35); MEAN CORPUSCULAR HGB CONC 32 g/dL (31-37); MEAN CORPUSCULAR VOLUME 88 fL (79-100); MONO # 0.6 x10^3/uL (0.0-1.1); MONO % 2 % (0-9); NEUT # 27.3 x10^3/uL (1.8-7.7); NEUT % 96 % (31-73); PLATELET COUNT 315 x10^3/uL (140-400); RED BLOOD COUNT 4.13 x10^6/uL (3.50-5.40); WHITE BLOOD COUNT 28.6 x10^3/uL (4.0-11.0)
[2021-11-27 03:54] LABS: CALCIUM 8.5 mg/dL (8.5-10.1); CREATININE 1.2 mg/dL (0.6-1.0); GFR 44.2; POTASSIUM 4.2 mmol/L (3.5-5.1)
[2021-11-27] MEDS: methylPREDNISolone SOD SUCC PF 40 MG/ML VIAL. IV SCH ×3 (06:10→21:06)
[2021-11-27 07:00] VITALS: BP 121/70
[2021-11-27] MEDS: BUDESONIDE 0.5 MG/2 ML NEBU. NEB SCH ×2 (07:15→19:40)
[2021-11-27] MEDS: IPRATRPIUM/ALBUTEROL 0.5/2.5MG 3 ML NEBU. NEB SCH ×4 (07:15→19:40)
[2021-11-27] MEDS ORDERED: NON FORMULARY ITEM (Omeprazole 40 MG) PO SCH (09:00)
[2021-11-27] MEDS: LEVOTHYROXINE 75 MCG TABLET PO SCH (09:13)
[2021-11-27] MEDS: cefTRIAXone IV Push 1 GM VIAL. IVP SCH (09:14)
[2021-11-27] MEDS: DOXYCYCLINE HYCLATE 100 MG in IV DEXTROSE 5% 100ML 100 ML IV SCH ×2 (09:14→21:07)
[2021-11-27 11:00] VITALS: BP 115/74
--- NOTE | 2021-11-27 11:50 | CONS ---
DATE OF CONSULTATION: 11/27/2021 PULMONARY CONSULTATION ATTENDING PHYSICIAN: Dr. Tucker. REASON FOR CONSULTATION: Hemoptysis. HISTORY OF PRESENT ILLNESS: The patient is a 71-year-old female who smoked for 30 years before quitting 30 years ago. The patient has history of throat cancer, which was treated with radiation. She also has history of breast cancer. 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 The patient has history of esophageal strictures. She was brought into the hospital with complaint of hemoptysis. The patient states she has a mild chronic cough, but the hemoptysis was new and was consistent with bright red blood clots. She states she continues to have difficulty with swallowing pills. The patient has history of aspiration pneumonia. The patient has history of radiation esophagitis. The patient uses p.r.n. oxygen. Currently, she is on oxygen at 3 liters. Her chest x-ray was reviewed and it shows a mildly interstitial prominent infiltrates. No focal consolidation seen. I have been asked to see her for further evaluation. No headaches. No nausea, vomiting, no diarrhea, no dysuria. No focal weakness. PAST MEDICAL HISTORY: Significant for hypertension, history of suspected COPD, history of p.r.n. oxygen use, history of pneumonia, history of throat cancer treated with radiation, history of breast cancer, history of suspected radiation esophagitis and history of esophageal strictures. PAST SURGICAL HISTORY: Lumpectomy in the breast. ALLERGIES: None. MEDICATIONS: Reviewed as listed in the MRAD including antibiotics and IV steroids along with nebs. REVIEW OF SYSTEMS: A 12-point system obtained. Pertinent positives and negatives discussed in my presence, illness, otherwise noncontributory. All systems that were negative were reviewed as well. SOCIAL HISTORY: Smoked for about 30 years before quitting 30 years ago. FAMILY HISTORY: Noncontributory to lungs. PHYSICAL EXAMINATION: VITAL SIGNS: Reviewed. Pulse ox 93% on 3 liters, blood pressure stable, afebrile. NECK: Supple. LUNGS: With occasional wheeze on the left base. CARDIOVASCULAR: With a regular rate. ABDOMEN: Soft, nontender. EXTREMITIES: With no pitting edema. LABORATORY DATA: Reviewed. Her BUN is 18, creatinine 1.2. INR is 1.1. D-dimer 0.3. White cell count 11.7, it jumped up to 28.6. Hemoglobin 11.6 and platelets are 350. IMPRESSION: 1. Hemoptysis in a patient who has history of throat cancer treated with radiation. She also had a radiation esophagitis and esophageal strictures with difficulty to swallow pills. She now comes in with hemoptysis. She could have following differential diagnosis: A. Tracheobronchitis/laryngitis/ pneumonia. B. Need to rule out any recurrent throat cancer. C. Aspiration pneumonitis would be in the differential diagnosis as well. 2. The patient with history of throat cancer treated with radiation and developed radiation esophagitis and esophageal strictures as well. 3. History of breast cancer. 4. 30 years of tobaccoism, likely underlying chronic obstructive pulmonary disease. 5. Marked leukocytosis could be steroid-induced as this has been a significant increase since admission. RECOMMENDATIONS: 1. Continue with present empiric antibiotics. 2. We will obtain CT neck and chest. 3. Continue DuoNebs and Pulmicort. 4. IV steroids. 5. Monitor white cell count. 6. Discontinue Lovenox. 7. Discussed with RN. We will follow along with you. MARIAH DR: Anupam TID: [id number] MTDD
[2021-11-27] MEDS: LACTOBACILLUS RHAMNOSUS GG 1 CAPSULE. PO SCH ×2 (12:00→21:05)
[2021-11-27 13:15] LABS: BASO % 0 % (0-3); EOS % 0 % (0-3); HEMOGLOBIN 11.7 g/dL (12.0-15.5); LYMPH # 0.8 x10^3/uL (1.0-4.8); LYMPH % 2 % (24-48); MEAN CORPUSCULAR HEMOGLOBIN 28 pg (25-35); MEAN CORPUSCULAR HGB CONC 32 g/dL (31-37); MEAN CORPUSCULAR VOLUME 89 fL (79-100); MONO # 1.2 x10^3/uL (0.0-1.1); MONO % 3 % (0-9); NEUT # 33.9 x10^3/uL (1.8-7.7); NEUT % 94 % (31-73); PLATELET COUNT 348 x10^3/uL (140-400); RED BLOOD COUNT 4.15 x10^6/uL (3.50-5.40); WHITE BLOOD COUNT 35.9 x10^3/uL (4.0-11.0)
[2021-11-27 13:41] LABS: ALBUMIN 3.2 g/dL (3.4-5.0); ALBUMIN/GLOBULIN RATIO 0.7 (1.0-1.7); CALCIUM 8.9 mg/dL (8.5-10.1); CREATININE 1.2 mg/dL (0.6-1.0); GFR 44.2; POTASSIUM 3.9 mmol/L (3.5-5.1); TOTAL BILIRUBIN 0.4 mg/dL (0.2-1.0)
[2021-11-27 14:13] LABS: % BANDS 3 % (0-9); % LYMPHS 2 % (24-48); % MONOS 2 % (0-10); % SEGS 93 % (35-66); PLT ESTIMATE ADEQUATE (ADEQUATE)
[2021-11-27 15:00] VITALS: BP 115/76
--- NOTE | 2021-11-27 15:47 | RAD ---
CT neck without contrast, CT chest without contrast HISTORY: Hemoptysis, history of throat cancer, radiation esophagitis CT CHEST: CT scan of the chest was done without contrast. There is atherosclerotic change in the aorta. Ascendi ng aorta measures 4.7 cm. Proximal descending aorta measures 3.2 cm. There is an infiltrate in the ri ght lower lobe suggesting an acute pneumonia. There are mild infiltrates in the right middle lobe. Th ere are mild groundglass infiltrates in the right lung and left lower lobe which could also be areas of pneumonia. There is no pleural effusion. There is mucous with opacification of the right mainstem bronchus and mucous plugging throughout the right lung. Upper aspect of liver and spleen are unremark able. Adrenal glands are normal. IMPRESSION: 1. Opacification of the right mainstem bronchus and mucous plugging in lower lobe and middle lobe bro nchi on the right. 3. Consolidating infiltrate inferior right lower lobe. 4. Bilateral areas of groundglass infiltrate which could be pneumonia or hemorrhage End impression CT NECK: CT scan of the neck was done without contrast. There is extensive coronary artery calcification. Paro tid glands are unremarkable. Submandibular glands are not optimally visualized possibly due to the at rophy from radiation, I do not see obvious changes from surgery. C-spine is in normal alignment. Ther e is no adenopathy in the neck. A definitive mass is not identified. IMPRESSION: 1. No definitive mass or adenopathy noted in the neck. 2. Extensive carotid artery calcification on each side. Electronically signed by: Jluis Bella MD (11/27/2021 3:45 PM) [id number]
[2021-11-27 19:00] VITALS: BP 103/61
[2021-11-27] MEDS: PANTOPRAZOLE 40 MG TABLET.DR. PO SCH (21:05)
[2021-11-27 23:00] VITALS: BP 116/71
[2021-11-28 03:00] VITALS: BP 109/67
[2021-11-28 07:00] VITALS: BP 107/56
[2021-11-28] MEDS: BUDESONIDE 0.5 MG/2 ML NEBU. NEB SCH ×2 (07:19→18:27)
[2021-11-28] MEDS: IPRATRPIUM/ALBUTEROL 0.5/2.5MG 3 ML NEBU. NEB SCH ×4 (07:19→18:27)
[2021-11-28] MEDS: methylPREDNISolone SOD SUCC PF 40 MG/ML VIAL. IV SCH ×3 (07:48→20:31)
[2021-11-28] MEDS: cefTRIAXone IV Push 1 GM VIAL. IVP SCH (08:24)
[2021-11-28] MEDS: DOXYCYCLINE HYCLATE 100 MG in IV DEXTROSE 5% 100ML 100 ML IV SCH ×2 (08:24→20:32)
[2021-11-28] MEDS: LACTOBACILLUS RHAMNOSUS GG 1 CAPSULE. PO SCH ×2 (08:24→20:31)
[2021-11-28] MEDS: LEVOTHYROXINE 75 MCG TABLET PO SCH (08:25)
--- NOTE | 2021-11-28 09:27 | PDOC ---
PULMONARY PROGRESS NOTES DATE: 11/28/21 TIME: 09:24 Subjective Hemoptysis improving. Denies any shortness of breath. Vitals Vital Signs Date Time Temp Pulse Resp B/P (MAP) Pulse Ox O2 Delivery O2 Flow Rate FiO2 11/28/21 08:25 84 107/56 11/28/21 07:19 93 Nasal Cannula 4.0 11/28/21 07:00 97.8 20 97.8 General: Alert, Oriented X4 Lungs: Other (Decreased breath sounds.) Cardiovascular: S1, S2 Abdomen: Soft Neuro Exam: Alert Extremities: No Edema Skin: Warm Labs Laboratory Tests Test 11/26/21 16:34 11/26/21 17:22 11/26/21 20:28 11/27/21 03:00 Lactic Acid Level 5.0 mmol/L (0.4-2.0) Glucose (Fingerstick) 250 mg/dL (70-99) 203 mg/dL (70-99) White Blood Count 28.6 x10^3/uL (4.0-11.0) Red Blood Count 4.13 x10^6/uL (3.50-5.40) Hemoglobin 11.6 g/dL (12.0-15.5) Hematocrit 36.4 % (36.0-47.0) Mean Corpuscular Volume 88 fL (79-100) Mean Corpuscular Hemoglobin 28 pg (25-35) Mean Corpuscular Hemoglobin Concent 32 g/dL (31-37) Red Cell Distribution Width 16.0 % (11.5-14.5) Platelet Count 315 x10^3/uL (140-400) Neutrophils (%) (Auto) 96 % (31-73) Lymphocytes (%) (Auto) 3 % (24-48) Monocytes (%) (Auto) 2 % (0-9) Eosinophils (%) (Auto) 0 % (0-3) Basophils (%) (Auto) 0 % (0-3) Neutrophils # (Auto) 27.3 x10^3/uL (1.8-7.7) Lymphocytes # (Auto) 0.7 x10^3/uL (1.0-4.8) Monocytes # (Auto) 0.6 x10^3/uL (0.0-1.1) Eosinophils # (Auto) 0.0 x10^3/uL (0.0-0.7) Basophils # (Auto) 0.0 x10^3/uL (0.0-0.2) Sodium Level 136 mmol/L (136-145) Potassium Level 4.2 mmol/L (3.5-5.1) Chloride Level 104 mmol/L (98-107) Carbon Dioxide Level 22 mmol/L (21-32) Anion Gap 10 (6-14) Blood Urea Nitrogen 18 mg/dL (7-20) Creatinine 1.2 mg/dL (0.6-1.0) Estimated GFR (Cockcroft-Gault) 44.2 Glucose Level 184 mg/dL (70-99) Calcium Level 8.5 mg/dL (8.5-10.1) Test 11/27/21 07:27 11/27/21 11:06 11/27/21 12:39 11/27/21 16:42 Glucose (Fingerstick) 158 mg/dL (70-99) 206 mg/dL (70-99) 168 mg/dL (70-99) White Blood Count 35.9 x10^3/uL (4.0-11.0) Red Blood Count 4.15 x10^6/uL (3.50-5.40) Hemoglobin 11.7 g/dL (12.0-15.5) Hematocrit 37.0 % (36.0-47.0) Mean Corpuscular Volume 89 fL (79-100) Mean Corpuscular Hemoglobin 28 pg (25-35) Mean Corpuscular Hemoglobin Concent 32 g/dL (31-37) Red Cell Distribution Width 16.0 % (11.5-14.5) Platelet Count 348 x10^3/uL (140-400) Neutrophils (%) (Auto) 94 % (31-73) Lymphocytes (%) (Auto) 2 % (24-48) Monocytes (%) (Auto) 3 % (0-9) Eosinophils (%) (Auto) 0 % (0-3) Basophils (%) (Auto) 0 % (0-3) Neutrophils # (Auto) 33.9 x10^3/uL (1.8-7.7) Lymphocytes # (Auto) 0.8 x10^3/uL (1.0-4.8) Monocytes # (Auto) 1.2 x10^3/uL (0.0-1.1) Eosinophils # (Auto) 0.0 x10^3/uL (0.0-0.7) Basophils # (Auto) 0.0 x10^3/uL (0.0-0.2) Segmented Neutrophils % 93 % (35-66) Band Neutrophils % 3 % (0-9) Lymphocytes % 2 % (24-48) Monocytes % 2 % (0-10) Platelet Estimate Adequate (ADEQUATE) Sodium Level 137 mmol/L (136-145) Potassium Level 3.9 mmol/L (3.5-5.1) Chloride Level 104 mmol/L (98-107) Carbon Dioxide Level 20 mmol/L (21-32) Anion Gap 13 (6-14) Blood Urea Nitrogen 15 mg/dL (7-20) Creatinine 1.2 mg/dL (0.6-1.0) Estimated GFR (Cockcroft-Gault) 44.2 BUN/Creatinine Ratio 13 (6-20) Glucose Level 193 mg/dL (70-99) Calcium Level 8.9 mg/dL (8.5-10.1) Total Bilirubin 0.4 mg/dL (0.2-1.0) Aspartate Amino Transf (AST/SGOT) 15 U/L (15-37) Alanine Aminotransferase (ALT/SGPT) 6 U/L (14-59) Alkaline Phosphatase 100 U/L (46-116) Total Protein 8.0 g/dL (6.4-8.2) Albumin 3.2 g/dL (3.4-5.0) Albumin/Globulin Ratio 0.7 (1.0-1.7) Test 11/27/21 20:56 11/28/21 07:50 Glucose (Fingerstick) 172 mg/dL (70-99) 163 mg/dL (70-99) Laboratory Tests Test 11/27/21 11:06 11/27/21 12:39 11/27/21 16:42 11/27/21 20:56 Glucose (Fingerstick) 206 mg/dL (70-99) 168 mg/dL (70-99) 172 mg/dL (70-99) White Blood Count 35.9 x10^3/uL (4.0-11.0) Red Blood Count 4.15 x10^6/uL (3.50-5.40) Hemoglobin 11.7 g/dL (12.0-15.5) Hematocrit 37.0 % (36.0-47.0) Mean Corpuscular Volume 89 fL (79-100) Mean Corpuscular Hemoglobin 28 pg (25-35) Mean Corpuscular Hemoglobin Concent 32 g/dL (31-37) Red Cell Distribution Width 16.0 % (11.5-14.5) Platelet Count 348 x10^3/uL (140-400) Neutrophils (%) (Auto) 94 % (31-73) Lymphocytes (%) (Auto) 2 % (24-48) Monocytes (%) (Auto) 3 % (0-9) Eosinophils (%) (Auto) 0 % (0-3) Basophils (%) (Auto) 0 % (0-3) Neutrophils # (Auto) 33.9 x10^3/uL (1.8-7.7) Lymphocytes # (Auto) 0.8 x10^3/uL (1.0-4.8) Monocytes # (Auto) 1.2 x10^3/uL (0.0-1.1) Eosinophils # (Auto) 0.0 x10^3/uL (0.0-0.7) Basophils # (Auto) 0.0 x10^3/uL (0.0-0.2) Segmented Neutrophils % 93 % (35-66) Band Neutrophils % 3 % (0-9) Lymphocytes % 2 % (24-48) Monocytes % 2 % (0-10) Platelet Estimate Adequate (ADEQUATE) Sodium Level 137 mmol/L (136-145) Potassium Level 3.9 mmol/L (3.5-5.1) Chloride Level 104 mmol/L (98-107) Carbon Dioxide Level 20 mmol/L (21-32) Anion Gap 13 (6-14) Blood Urea Nitrogen 15 mg/dL (7-20) Creatinine 1.2 mg/dL (0.6-1.0) Estimated GFR (Cockcroft-Gault) 44.2 BUN/Creatinine Ratio 13 (6-20) Glucose Level 193 mg/dL (70-99) Calcium Level 8.9 mg/dL (8.5-10.1) Total Bilirubin 0.4 mg/dL (0.2-1.0) Aspartate Amino Transf (AST/SGOT) 15 U/L (15-37) Alanine Aminotransferase (ALT/SGPT) 6 U/L (14-59) Alkaline Phosphatase 100 U/L (46-116) Total Protein 8.0 g/dL (6.4-8.2) Albumin 3.2 g/dL (3.4-5.0) Albumin/Globulin Ratio 0.7 (1.0-1.7) Test 11/28/21 07:50 Glucose (Fingerstick) 163 mg/dL (70-99) Medications Active Scripts Medications Dose Route/Sig Max Daily Dose Days Date Category Pantoprazole Sodium (Pantoprazole Sodium) 40 Mg Tablet.dr 40 Mg PO HS 30 12/25/20 Rx Augmentin 875-125 Tablet (Amoxicillin/Potassium Clav) 1 Each Tablet 1 Tab PO BID 7 12/25/20 Rx Doxycycline Hyclate 100 Mg Tablet 100 Mg PO BID 7 12/25/20 Rx Levothyroxine Sodium 75 Mcg Tablet 75 Mcg PO DAILYAC 09/01/19 Reported Amlodipine Besylate 10 Mg Tablet 10 Mg PO DAILY 09/01/19 Reported Omeprazole 40 Mg Capsule.dr 40 Mg PO DAILY 09/01/[address] chest and neck reviewed 1. Opacification of the right mainstem bronchus and mucous plugging in lower lobe and middle lobe bronchi on the right. 3. Consolidating infiltrate inferior right lower lobe. 4. Bilateral areas of groundglass infiltrate which could be pneumonia or hemorrhage Impression . 1. Hemoptysis in a patient who has history of throat cancer treated with radiation. She also had a radiation esophagitis and esophageal strictures with difficulty to swallow pills. She now comes in with hemoptysis. She could have following differential diagnosis: A. Tracheobronchitis/laryngitis. B. Need to rule out any recurrent throat cancer. C. Aspiration pneumonitis would be in the differential diagnosis as well. 2. The patient with history of throat cancer treated with radiation and developed radiation esophagitis and esophageal strictures as well. 3. History of breast cancer. 4. 30 years of tobaccoism, likely underlying chronic obstructive pulmonary disease. 5. Marked leukocytosis could be steroid-induced as this has been a significant increase since admission. Plan . 1. Continue with present empiric antibiotics. 2. CT neck and chest reviewed. No obvious tumor in the throat. CT chest revealed complete occlusion of the right mainstem bronchus with mucous plug. There is also mucous plugs seen in the right middle and right lower lobe. There is some right lower lobe consolidation and some groundglass opacities which could be blood. She would benefit from bronchoscopy. 3. Continue DuoNebs and Pulmicort. 4. IV steroids. 5. Monitor white cell count. 6. Off Lovenox. 7. Discussed with RN. Discussed with the patient about option for bronchoscopy. She agrees. All risk and benefits were explained. We will schedule for tomorrow. AMY CONROY MD November 28, 2021 09:27
[2021-11-28 11:00] VITALS: BP 110/64
[2021-11-28 15:00] VITALS: BP 96/57
--- NOTE | 2021-11-28 17:16 | PDOC ---
[facility] PROGRESS NOTE Date of Service DOS: Late entry 11/27 Chief Complaint Chief Complaint Acute hypoxic respiratory failure -due to atypical pneumonia with bronchitis hemoptysis. Will give aggressive nebs steroids consult pulmonology wean O2 as tolerated Hemoptysis -likely related to bronchitis. Bronchitis with atypical Pneumonia -bilateral interstitial pneumonia we will consult pulmonology given hemoptysis and bronchitis with hypoxia clearly patient aspirates. Hx of throat cancer post radiation and chemotherapy Esophageal strictures BREAST CA, HX Hypokalemia - replace, check mag FEN - regular diet PPX - lovenox FULL CODE Dispo - inpatient History of Present Illness History of Present Illness 11/27 Patient evaluated examined at bedside. Still with some hemoptysis. When she laid flat for CT scan and after she sat back up she did spit up a fair bit of bright red blood. Pulmonary recommendations reviewed. Continue current treatment. Monitor hemoglobin. Discussed with bedside RN. Vitals/I&O Vitals/I&O: Vital Signs Date Time Temp Pulse Resp B/P (MAP) Pulse Ox O2 Delivery O2 Flow Rate FiO2 11/28/21 15:47 91 Nasal Cannula 4.0 11/28/21 15:00 98.0 84 20 96/57 (70) 98.0 I & O 11/27/21 11/27/21 11/28/21 15:00 23:00 07:00 Intake Total 480 ml 360 ml 120 ml Balance 480 ml 360 ml 120 ml Physical Exam General: Alert, Oriented X3, Cooperative, moderate distress Heart: Regular rate Lungs: Other (Decreased breath sounds.) Abdomen: Normal bowel sounds, Soft, No tenderness, No hepatosplenomegaly, No masses Extremities: No clubbing, No cyanosis, No edema, Normal pulses, No tenderness/swelling Skin: No rashes, No breakdown, No significant lesion Labs Labs: Laboratory Tests Test 11/27/21 20:56 11/28/21 07:50 11/28/21 10:59 11/28/21 16:54 Glucose (Fingerstick) 172 mg/dL (70-99) 163 mg/dL (70-99) 227 mg/dL (70-99) 173 mg/dL (70-99) Assessment and Plan Assessmemt and Plan Problems Medical Problems: (1) Hypokalemia Status: Acute (2) Pneumonia Status: Acute (3) Respiratory failure Status: Acute (4) Sepsis Status: Acute Comment Review of Relevant I have reviewed the following items elvira (where applicable) has been applied. Justifications for Admission Other Justification aspiration pneumonia FREDDIE TORRES MD November 28, 2021 17:16
--- NOTE | 2021-11-28 17:17 | PDOC ---
[facility] PROGRESS NOTE Date of Service DOS: DATE: 11/28/21 TIME: 17:16 Chief Complaint Chief Complaint Acute hypoxic respiratory failure -due to atypical pneumonia with bronchitis hemoptysis. Will give aggressive nebs steroids consult pulmonology wean O2 as tolerated Hemoptysis -likely related to bronchitis. Bronchitis with atypical Pneumonia -bilateral interstitial pneumonia we will consult pulmonology given hemoptysis and bronchitis with hypoxia clearly patient aspirates. Hx of throat cancer post radiation and chemotherapy Esophageal strictures BREAST CA, HX Hypokalemia - replace, check mag FEN - regular diet PPX - lovenox FULL CODE Dispo - inpatient History of Present Illness History of Present Illness 11/28 Evaluated examined at bedside. Hemoptysis still present but she says maybe a little better. Imaging reviewed. Pulmonary recommendations reviewed look like planning for bronc tomorrow. Continue current otherwise. Discussed with bedside RN. 11/27 Patient evaluated examined at bedside. Still with some hemoptysis. When she laid flat for CT scan and after she sat back up she did spit up a fair bit of bright red blood. Pulmonary recommendations reviewed. Continue current treatment. Monitor hemoglobin. Discussed with bedside RN. Vitals/I&O Vitals/I&O: Vital Signs Date Time Temp Pulse Resp B/P (MAP) Pulse Ox O2 Delivery O2 Flow Rate FiO2 11/28/21 15:47 91 Nasal Cannula 4.0 11/28/21 15:00 98.0 84 20 96/57 (70) 98.0 I & O 11/27/21 11/27/21 11/28/21 15:00 23:00 07:00 Intake Total 480 ml 360 ml 120 ml Balance 480 ml 360 ml 120 ml Physical Exam General: Alert, Oriented X3, Cooperative, moderate distress Heart: Regular rate Lungs: Other (Decreased breath sounds.) Abdomen: Normal bowel sounds, Soft, No tenderness, No hepatosplenomegaly, No masses Extremities: No clubbing, No cyanosis, No edema, Normal pulses, No tenderness/swelling Skin: No rashes, No breakdown, No significant lesion Labs Labs: Laboratory Tests Test 11/27/21 20:56 11/28/21 07:50 11/28/21 10:59 11/28/21 16:54 Glucose (Fingerstick) 172 mg/dL (70-99) 163 mg/dL (70-99) 227 mg/dL (70-99) 173 mg/dL (70-99) Assessment and Plan Assessmemt and Plan Problems Medical Problems: (1) Hypokalemia Status: Acute (2) Pneumonia Status: Acute (3) Respiratory failure Status: Acute (4) Sepsis Status: Acute Comment Review of Relevant I have reviewed the following items elvira (where applicable) has been applied. Justifications for Admission Other Justification aspiration pneumonia FREDDIE TORRES MD November 28, 2021 17:17
[2021-11-28 19:00] VITALS: BP 95/55
[2021-11-28] MEDS: PANTOPRAZOLE 40 MG TABLET.DR. PO SCH (20:31)
[2021-11-28 23:00] VITALS: BP 113/65
[2021-11-29] VITALS (14 sets, daily range): BP systolic 105–143; BP diastolic 45–84
[2021-11-29] MEDS: methylPREDNISolone SOD SUCC PF 40 MG/ML VIAL. IV SCH ×3 (06:06→22:01)
[2021-11-29] MEDS: IPRATRPIUM/ALBUTEROL 0.5/2.5MG 3 ML NEBU. NEB SCH ×4 (07:15→21:00)
[2021-11-29] MEDS: BUDESONIDE 0.5 MG/2 ML NEBU. NEB SCH ×2 (07:15→21:00)
[2021-11-29] MEDS: LACTOBACILLUS RHAMNOSUS GG 1 CAPSULE. PO SCH ×2 (07:34→20:12)
[2021-11-29] MEDS: cefTRIAXone IV Push 1 GM VIAL. IVP SCH (08:19)
[2021-11-29] MEDS: DOXYCYCLINE HYCLATE 100 MG in IV DEXTROSE 5% 100ML 100 ML IV SCH (08:20)
--- NOTE | 2021-11-29 08:33 | EKG ---
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
--- NOTE | 2021-11-29 09:11 | PDOC ---
PULMONARY PROGRESS NOTES DATE: 11/29/21 TIME: 09:11 Subjective Patient with no new episodes of hemoptysis short of air Vitals Vital Signs Date Time Temp Pulse Resp B/P (MAP) Pulse Ox O2 Delivery O2 Flow Rate FiO2 11/29/21 07:15 93 Nasal Cannula 4.0 11/29/21 07:00 97.8 77 18 123/69 (87) 97.8 ROS: No Nausea, No Chest Pain, No Abdominal Pain, No Increase Cough General: Alert, Oriented X4 Lungs: Other (Decreased breath sounds.) Cardiovascular: S1, S2 Abdomen: Soft Neuro Exam: Alert Extremities: No Edema Skin: Warm Labs Laboratory Tests Test 11/27/21 11:06 11/27/21 12:39 11/27/21 16:42 11/27/21 20:56 Glucose (Fingerstick) 206 mg/dL (70-99) 168 mg/dL (70-99) 172 mg/dL (70-99) White Blood Count 35.9 x10^3/uL (4.0-11.0) Red Blood Count 4.15 x10^6/uL (3.50-5.40) Hemoglobin 11.7 g/dL (12.0-15.5) Hematocrit 37.0 % (36.0-47.0) Mean Corpuscular Volume 89 fL (79-100) Mean Corpuscular Hemoglobin 28 pg (25-35) Mean Corpuscular Hemoglobin Concent 32 g/dL (31-37) Red Cell Distribution Width 16.0 % (11.5-14.5) Platelet Count 348 x10^3/uL (140-400) Neutrophils (%) (Auto) 94 % (31-73) Lymphocytes (%) (Auto) 2 % (24-48) Monocytes (%) (Auto) 3 % (0-9) Eosinophils (%) (Auto) 0 % (0-3) Basophils (%) (Auto) 0 % (0-3) Neutrophils # (Auto) 33.9 x10^3/uL (1.8-7.7) Lymphocytes # (Auto) 0.8 x10^3/uL (1.0-4.8) Monocytes # (Auto) 1.2 x10^3/uL (0.0-1.1) Eosinophils # (Auto) 0.0 x10^3/uL (0.0-0.7) Basophils # (Auto) 0.0 x10^3/uL (0.0-0.2) Segmented Neutrophils % 93 % (35-66) Band Neutrophils % 3 % (0-9) Lymphocytes % 2 % (24-48) Monocytes % 2 % (0-10) Platelet Estimate Adequate (ADEQUATE) Sodium Level 137 mmol/L (136-145) Potassium Level 3.9 mmol/L (3.5-5.1) Chloride Level 104 mmol/L (98-107) Carbon Dioxide Level 20 mmol/L (21-32) Anion Gap 13 (6-14) Blood Urea Nitrogen 15 mg/dL (7-20) Creatinine 1.2 mg/dL (0.6-1.0) Estimated GFR (Cockcroft-Gault) 44.2 BUN/Creatinine Ratio 13 (6-20) Glucose Level 193 mg/dL (70-99) Calcium Level 8.9 mg/dL (8.5-10.1) Total Bilirubin 0.4 mg/dL (0.2-1.0) Aspartate Amino Transf (AST/SGOT) 15 U/L (15-37) Alanine Aminotransferase (ALT/SGPT) 6 U/L (14-59) Alkaline Phosphatase 100 U/L (46-116) Total Protein 8.0 g/dL (6.4-8.2) Albumin 3.2 g/dL (3.4-5.0) Albumin/Globulin Ratio 0.7 (1.0-1.7) Test 11/28/21 07:50 11/28/21 10:59 11/28/21 16:54 11/28/21 20:32 Glucose (Fingerstick) 163 mg/dL (70-99) 227 mg/dL (70-99) 173 mg/dL (70-99) 249 mg/dL (70-99) Test 11/29/21 07:14 Glucose (Fingerstick) 141 mg/dL (70-99) Laboratory Tests Test 11/28/21 10:59 11/28/21 16:54 11/28/21 20:32 11/29/21 07:14 Glucose (Fingerstick) 227 mg/dL (70-99) 173 mg/dL (70-99) 249 mg/dL (70-99) 141 mg/dL (70-99) Medications Active Scripts Medications Dose Route/Sig Max Daily Dose Days Date Category Pantoprazole Sodium (Pantoprazole Sodium) 40 Mg Tablet.dr 40 Mg PO HS 30 12/25/20 Rx Augmentin 875-125 Tablet (Amoxicillin/Potassium Clav) 1 Each Tablet 1 Tab PO BID 7 12/25/20 Rx Doxycycline Hyclate 100 Mg Tablet 100 Mg PO BID 7 12/25/20 Rx Levothyroxine Sodium 75 Mcg Tablet 75 Mcg PO DAILYAC 09/01/19 Reported Amlodipine Besylate 10 Mg Tablet 10 Mg PO DAILY 09/01/19 Reported Omeprazole 40 Mg Capsule.dr 40 Mg PO DAILY 09/01/[address] chest and neck reviewed 1. Opacification of the right mainstem bronchus and mucous plugging in lower lobe and middle lobe bronchi on the right. 3. Consolidating infiltrate inferior right lower lobe. 4. Bilateral areas of groundglass infiltrate which could be pneumonia or hemorrhage Impression . 1. Hemoptysis in a patient who has history of throat cancer treated with radiation. She also had a radiation esophagitis and esophageal strictures with difficulty to swallow pills. She now comes in with hemoptysis. She could have following differential diagnosis: A. Tracheobronchitis/laryngitis. B. Need to rule out any recurrent throat cancer. C. Aspiration pneumonitis would be in the differential diagnosis as well. 2. The patient with history of throat cancer treated with radiation and developed radiation esophagitis and esophageal strictures as well. 3. History of breast cancer. 4. 30 years of tobaccoism, likely underlying chronic obstructive pulmonary disease. 5. Marked leukocytosis could be steroid-induced as this has been a significant increase since admission. Plan . Updated 11/29 Reviewed risk benefits and alternatives to bronchoscopy patient consented Continue current support 1. Continue with present empiric antibiotics. 2. CT neck and chest reviewed. No obvious tumor in the throat. CT chest revealed complete occlusion of the right mainstem bronchus with mucous plug. There is also mucous plugs seen in the right middle and right lower lobe. There is some right lower lobe consolidation and some groundglass opacities which could be blood. She would benefit from bronchoscopy. 3. Continue DuoNebs and Pulmicort. 4. IV steroids. 5. Monitor white cell count. 6. Off Lovenox. 7. Discussed with RN. Discussed with the patient about option for bronchoscopy. She agrees. All risk and benefits were explained. We will schedule for tomorrow. JONNY ALEX MD November 29, 2021 09:11
[2021-11-29] MEDS ORDERED: ALBUTEROL SULFATE 2.5 MG/3 ML NEBU. NEB PRN (10:00)
[2021-11-29] MEDS ORDERED: 0.9 % SODIUM CHLORIDE 10 ML DISP.SYRIN. IV PRN (10:00)
[2021-11-29] MEDS ORDERED: LIDOCAINE 2% VISCOUS 100 ML BOTTLE. MM PRN (10:00)
[2021-11-29] MEDS ORDERED: LIDOCAINE 4% TOPICAL 50 ML SOLUTION. MM PRN (10:00)
[2021-11-29] MEDS ORDERED: LIDOCAINE 1% Multi-Dose 20 ML VIAL. INJ PRN (10:00)
[2021-11-29] MEDS ORDERED: EPINEPHrine 1 MG/ML VIAL INJ PRN (10:00)
[2021-11-29] MEDS ORDERED: LIDOCAINE 2% PF 5 ML VIAL. ONE (11:40)
[2021-11-29] MEDS ORDERED: PROPOFOL 10 MG/ML (20ML) VIAL. IV ONE (11:40)
[2021-11-29] MEDS ORDERED: IV RINGERS,LACTATED 1000ML 1,000 ML IV SCH (11:45)
[2021-11-29] MEDS: LEVOTHYROXINE 75 MCG TABLET PO SCH (13:34)
--- NOTE | 2021-11-29 14:41 | PDOC4 ---
Procedure Note Procedure: Bronchoscopy, bronchoalveolar lavage Indications: Hemoptysis, history of laryngeal carcinoma Complications: No immediate complications Procedural Details: Timeout was performed prior to sedation. Patient was sedated by anesthesia. Vital signs and O2 saturation were maintained throughout the procedure within normal limits. I introduced the scope through the right nares. The vocal cords were identified moving bilaterally without any dysfunction. The scope was passed through the vocal cords into the proximal trachea. There was old blood covering in the main iram. I inspected the left side. There was no active bleeding there was no evidence of old blood within the left lower lobe segment. Upon inspecting the right lower lobe there was blood within the right lower lobe segment in the superior segment of the right lower lobe. Utilizing the scope, the blood and blood clots were cleared away. On several occasions I had to withdraw the scope and cleared the port with saline. Once the blood and all clots were cleared away I was able to identify all segments. I did not appreciate any endobronchial lesion. The scope was then wedged into the right lower lobe and a bronchoalveolar lavage was performed. Conclusions: 1. Normal vocal cords 2. Old blood covering the main iram 3. Old blood within the superior segment of the right lower lobe and right lower lobe segment including blood clots 4. No endobronchial lesion 5. No active bleeding BAL performed of the right lower lobe, will await results. JONNY ALEX MD November 29, 2021 14:41
--- NOTE | 2021-11-29 16:38 | NUR ---
SS following for discharge planning. SS reviewed pt chart and discussed with pt RN. Pt is from home and is currently requiring oxygen at four liters nasal canula. COVID19 negative. Pt has PRN home oxygen. Pt on IV Rocephin and IV Solu-Medrol. Bronchoscopy today. PO diet. Per RN, pt refusing ST services. SS will continue to follow for discharge planning.
[2021-11-29] MEDS: PANTOPRAZOLE 40 MG TABLET.DR. PO SCH (20:12)
[2021-11-29] MEDS ORDERED: DOXYCYCLINE HYCLATE 100 MG TABLET PO SCH (21:00)
--- NOTE | 2021-11-30 08:00 | PDOC ---
[facility] PROGRESS NOTE Date of Service DOS: November 29 late entry Chief Complaint Chief Complaint Acute hypoxic respiratory failure -due to atypical pneumonia with bronchitis hem optysis. Will give aggressive nebs steroids consult pulmonology wean O2 as tolerated Hemoptysis -likely related to bronchitis. Bronchitis with atypical Pneumonia -bilateral interstitial pneumonia we will consult pulmonology given hemoptysis and bronchitis with hypoxia clearly patient aspirates. Hx of throat cancer post radiation and chemotherapy Esophageal strictures BREAST CA, HX Hypokalemia - replace, check mag FEN - regular diet PPX - lovenox FULL CODE Dispo - inpatient History of Present Illness History of Present Illness 11/29 Patient evaluated examined at bedside resting in bed. No further episodes of hemoptysis. Plan for bronchoscopy today. We will follow-up with patient after procedure. 11/28 Evaluated examined at bedside. Hemoptysis still present but she says maybe a little better. Imaging reviewed. Pulmonary recommendations reviewed look like planning for bronc tomorrow. Continue current otherwise. Discussed with bedside RN. 11/27 Patient evaluated examined at bedside. Still with some hemoptysis. When she laid flat for CT scan and after she sat back up she did spit up a fair bit of bright red blood. Pulmonary recommendations reviewed. Continue current treatment. Monitor hemoglobin. Discussed with bedside RN. Vitals/I&O Vitals/I&O: Vital Signs Date Time Temp Pulse Resp B/P (MAP) Pulse Ox O2 Delivery O2 Flow Rate FiO2 11/29/21 21:00 94 Nasal Cannula 4.0 11/29/21 19:00 97.8 96 18 105/63 (77) 97.8 I & O 11/29/21 11/29/21 11/30/21 15:00 23:00 07:00 Intake Total 700 ml Balance 700 ml Physical Exam General: Alert, Oriented X3, Cooperative, moderate distress Heart: Regular rate Lungs: Other (Decreased breath sounds.) Abdomen: Normal bowel sounds, Soft, No tenderness, No hepatosplenomegaly, No masses Extremities: No clubbing, No cyanosis, No edema, Normal pulses, No tenderness/swelling Skin: No rashes, No breakdown, No significant lesion Labs Labs: Laboratory Tests Test 11/29/21 11:07 11/29/21 16:57 11/29/21 18:33 Glucose (Fingerstick) 146 mg/dL (70-99) 202 mg/dL (70-99) 210 mg/dL (70-99) Assessment and Plan Assessmemt and Plan Problems Medical Problems: (1) Hypokalemia Status: Acute (2) Pneumonia Status: Acute (3) Respiratory failure Status: Acute (4) Sepsis Status: Acute Comment Review of Relevant I have reviewed the following items elvira (where applicable) has been applied. Medications: Current Medications Medications (Trade) Dose Ordered Sig/Nora Route PRN Reason Start Time Stop Time Status Last Admin Dose Admin Doxycycline Hyclate (Vibra-Tab) 100 mg BID PO 11/29/21 21:00 11/30/21 01:56 DC 11/29/21 20:12 Ringer's Solution 1,000 ml @ 75 mls/hr [id number] IV 11/29/21 11:45 11/29/21 12:44 DC 11/29/21 11:35 Justifications for Admission Other Justification aspiration pneumonia FREDDIE TORRES MD Nov 30, 2021 08:00
== END 2021-11-30 | disposition home or self-care (01) | DRG 871 ==
LOC: ER 07:49 → 5 NORTH 10:00
PROVIDERS: ADMIT Internal Medicine; ATTEND Internal Medicine
PROC: 0B9F8ZX Drainage of Right Lower Lung Lobe, Via Natural or Artificial Opening Endoscopic, Diagnostic (ICD-10-PCS; 2021-11-29)
PROC: 0B9F8ZZ Drainage of Right Lower Lung Lobe, Via Natural or Artificial Opening Endoscopic (ICD-10-PCS; principal; 2021-11-29 11:30)
DX: A41.9 Sepsis, unspecified organism (principal); J96.01 Acute respiratory failure with hypoxia; J69.0 Pneumonitis due to inhalation of food and vomit; R04.2 Hemoptysis; Z20.822 Contact with and (suspected) exposure to COVID-19; E87.6 Hypokalemia; J20.9 Acute bronchitis, unspecified; I10 Essential (primary) hypertension; K22.2 Esophageal obstruction; K21.9 Gastro-esophageal reflux disease without esophagitis; M19.90 Unspecified osteoarthritis, unspecified site; M19.011 Primary osteoarthritis, right shoulder; M19.012 Primary osteoarthritis, left shoulder; E03.9 Hypothyroidism, unspecified; Z85.01 Personal history of malignant neoplasm of esophagus; Z92.3 Personal history of irradiation; Z87.01 Personal history of pneumonia (recurrent); Z82.49 Family history of ischemic heart disease and other diseases of the circulatory system; Z87.891 Personal history of nicotine dependence; Z99.81 Dependence on supplemental oxygen; Z85.3 Personal history of malignant neoplasm of breast; Z79.899 Other long term (current) drug therapy; Z85.819 Personal history of malignant neoplasm of unspecified site of lip, oral cavity, and pharynx
CPT/HCPCS: 31622; 36415; 36600; 70490; 71045; 71250; 80048; 80053; 82805; 82962; 83605; 83735; 83880; 84484; 85007; 85025; 85379; 85610; 85730; 87040; 87070; 87102; 87116; 87205; 87428; 87801; 93005; 94640; 94760; 96374; 96375; J0696; J1650; J2704; J2920; J2930; J3475; J3490; J7030; J7060; J7120; 99285-25; G0378; J7626